=== PATIENT | female | born 1970 | race Caucasian/White ===

== ENCOUNTER → 2022-01-01 08:06 | Outpatient (BNVA) | payer MEDICARE, SELFPAY | PROVIDERS: PCP Family Medicine; Visit Provider Psychiatry & Neurology Neurology | DX: G47.9 Sleep disorder, unspecified (principal); R06.83 Snoring | CPT/HCPCS: 99212 ==

== ENCOUNTER → 2022-02-06 10:10 | Outpatient (BNVA) | payer MEDICARE, SELFPAY | PROVIDERS: PCP Family Medicine; Visit Provider Internal Medicine | DX: G47.9 Sleep disorder, unspecified (principal); G47.34 Idiopathic sleep related nonobstructive alveolar hypoventilation; E66.01 Morbid (severe) obesity due to excess calories; R06.83 Snoring; Z68.41 Body mass index [BMI] 40.0-44.9, adult | CPT/HCPCS: 99202 ==

== ENCOUNTER 2022-02-20 08:57 | Outpatient (REF) | payer MEDICARE, OTHER, SELFPAY ==
[2022-02-20 10:51] LABS: Estimated Average Glucose 120 mg/dL; Hemoglobin A1c % 5.8 %
[2022-02-20 10:56] LABS: Alanine Aminotransferase 12 U/L (0-31); Aspartate Amino Transferase 12 U/L (5-31); Cholesterol 217 mg/dL; HDL Cholesterol 48 mg/dL; LDL Cholesterol Calculated 149 mg/dl; Triglycerides 101 mg/dL
== END 2022-02-20 08:58 | disposition home or self-care (01) ==
LOC: HO.LAB 08:57
PROVIDERS: PCP Family Medicine; Visit Provider Family Medicine
DX: E78.00 Pure hypercholesterolemia, unspecified (principal); E11.9 Type 2 diabetes mellitus without complications
CPT/HCPCS: 36415; 80061; 83036; 84450; 84460

== ENCOUNTER 2022-02-27 07:55 | Outpatient (REF) | payer MEDICARE, OTHER, SELFPAY ==
--- NOTE | 2022-02-27 15:21 | PFT_ITS ---
INDICATION: Dyspnea. SPIROMETRY: FEV1 to FVC 82% with an FEV1 of 2.7 L, which is 92% predicted and an FVC of 3.28 L, which is 88% predicted. No significant response to bronchodilators noted. Maximum voluntary ventilation 93% predicted. LUNG VOLUMES: Total lung capacity 78% predicted with expiratory reserve volume of 23% predicted. DIFFUSION CAPACITY: DLCO 62% predicted. COMPARISONS: None. INTERPRETATION: No obstructive ventilatory defect. No significant response to bronchodilators noted. Normal maximum voluntary ventilation. The patient does have a mild restrictive ventilatory defect consistent with mild restrictive lung disease. Partly due to her body habitus with a decrease in the expiratory reserve volume to 22% predicted. However, underlying interstitial lung conditions and/or neuromuscular conditions need to be considered. The patient does have a mild diffusion impairment that does not correct to normal when correcting for the alveolar volume. Need to consider interstitial lung conditions and/or pulmonary vascular conditions. Should also correct for hemoglobin. Clinical correlation warranted. MD ADRIANA Lind/MODL / [id number]
== END 2022-02-27 07:56 | disposition home or self-care (01) ==
LOC: HO.RESP 07:55
PROVIDERS: PCP Family Medicine; Visit Provider Internal Medicine
DX: E66.01 Morbid (severe) obesity due to excess calories (principal); G47.34 Idiopathic sleep related nonobstructive alveolar hypoventilation; R06.83 Snoring
CPT/HCPCS: 94060; 94727; 94729

== ENCOUNTER → 2022-03-05 07:56 | Outpatient (BNVA) | payer MEDICARE, OTHER, SELFPAY | PROVIDERS: PCP Family Medicine; Visit Provider Psychiatry & Neurology Neurology | DX: G47.9 Sleep disorder, unspecified (principal); R06.83 Snoring | CPT/HCPCS: 99212 ==

== ENCOUNTER → 2022-03-20 09:11 | Outpatient (BNVA) | payer MEDICARE, OTHER, SELFPAY | PROVIDERS: PCP Family Medicine; Visit Provider Internal Medicine | DX: G47.34 Idiopathic sleep related nonobstructive alveolar hypoventilation (principal); J84.9 Interstitial pulmonary disease, unspecified; E66.01 Morbid (severe) obesity due to excess calories; Z68.41 Body mass index [BMI] 40.0-44.9, adult | CPT/HCPCS: 99212 ==

== ENCOUNTER 2022-05-17 13:56 | Outpatient (REF) | payer MEDICARE, SELFPAY ==
[2022-05-17 14:42] LABS: Alanine Aminotransferase 12 U/L (0-31); Aspartate Amino Transferase 17 U/L (5-31); Cholesterol 224 mg/dL; HDL Cholesterol 35 mg/dL; LDL Cholesterol Calculated 131 mg/dl; Triglycerides 293 mg/dL
== END 2022-05-17 13:57 | disposition home or self-care (01) ==
LOC: HO.LAB 13:56
PROVIDERS: Visit Provider Family Medicine
DX: E78.00 Pure hypercholesterolemia, unspecified (principal)
CPT/HCPCS: 36415; 80061; 84450; 84460

== ENCOUNTER → 2022-10-08 09:01 | Outpatient (BNVA) | payer MEDICARE, OTHER, SELFPAY | PROVIDERS: PCP Family Medicine; Visit Provider Internal Medicine | DX: G47.34 Idiopathic sleep related nonobstructive alveolar hypoventilation (principal); J98.4 Other disorders of lung; E66.01 Morbid (severe) obesity due to excess calories; Z68.39 Body mass index [BMI] 39.0-39.9, adult | CPT/HCPCS: 99212 ==

== ENCOUNTER 2023-07-15 09:17 | Outpatient (AMB) | payer MEDICARE, SELFPAY ==
[2023-07-15 09:19] VITALS: BP 124/76; PULSE 86; O2SAT 94; BMI 36.6
--- NOTE | 2023-07-15 09:19 | A.OFFVIS_ITS ---
Intake Vital Signs 07/15/23 09:19 Height 5 ft 6 in Weight 227 lb 1.218 oz BMI 36.6 BP 124/76 Blood Pressure Location Lt brachial Position Sitting Pulse 86 Pulse Source Pulse Oximeter Pulse Oximetry (%) 94 Oxygen Delivery Method Room Air Intake Visit Reasons: cony Intake Note: Pt reports her oxygen levels dropping at night so she sleeps with her oxygen at 2L. Allergies No Known Allergies Allergy (Verified 07/15/23 09:49) Medication List - Last Reconciled 07/15/23 by Naz Torres MD acetaminophen (Tylenol) 325 mg PO QID PRN albuterol sulfate 90 mcg/actuation 2 puffs inhalation Q6H PRN clonazepam 0.25 mg PO BID clonidine HCl 0.1 mg PO TID furosemide (Lasix) 20 mg PO DAILY gabapentin 1,200 mg PO BEDTIME gabapentin 600 mg PO BID hydroxyzine HCl 50 mg PO TID lamotrigine (Lamictal) 200 mg PO BID meloxicam 15 mg PO DAILY PRN promethazine 25 mg PO Q6H PRN quetiapine (Seroquel) 400 mg PO BEDTIME sumatriptan succinate (Imitrex) take 1 tab at onset of headache; if no relief, may repeat 1 tab after at least 2 hrs; max = 2 tabs/24 hrs PO topiramate (Topamax) 100 mg PO BEDTIME venlafaxine ER (Effexor XR) 300 mg PO DAILY Do you need a note to return to daycare/school/sports/work: No HPI cony HPI Details This 53 years old female comes after more than 6 months for follow-up. She is a case of morbid obesity, Sleep disorder ,Nocturnal hypoxemia , restrictive lung disease secondary to obesity. She continues to lose weight, and is happy about that. Recent oximetry recording at night showed that her O2 sat was below 88% for more than 1 hour, so she still needs O2 supplementation at night. With gradual weight loss her shortness of breath on exertion is much less than before. She denies any wheezing or cough. [facility] Medical History (Updated 07/15/23 @ 09:55 by Naz Torres MD) Migraine Morbid obesity Nocturnal hypoxemia Obesity (BMI 30.0-34.9) Psychogenic nonepileptic seizure Restrictive lung disease Surgical History No pertinent past surgical history Family History Father Cancer Paternal Aunt Cancer Social History Alcohol intake: never Patient Tobacco Use Status: Never used Tobacco Review of Systems Const All systems reviewed & are unremarkable except as noted in HPI and below Eyes Reports no additional complaints ENT Reports no additional complaints Card Denies chest pain, Denies irregular heart rhythm, Denies leg edema and Denies dyspnea on exertion Resp Denies cough, Denies excessive phlegm production, Denies dyspnea on exertion and Denies wheezing GI Reports no additional complaints Reports no additional complaints Musc Reports no additional complaints Skin/Breast Reports system reviewed and no additional complaints, except as documented Neuro Reports seizure-like activity and Reports other (MIGRAINE HEADACHES) Endo Reports no additional complaints Aller/Immun Denies wheezing Physical Exam Vital Signs: Last Vital Signs Pulse 86 07/15/23 09:19 BP 124/76 07/15/23 09:19 Pulse Ox 94 07/15/23 09:19 Oxygen Delivery Method Room Air 07/15/23 09:19 BMI result Body Mass Index 36.6 Const General: comfortable, no acute distress, alert and awake Orientation/consciousness: patient oriented x3 HEENT Head: Yes normal to inspection General nose exam: No nasal polyps present and No nasal discharge present Face and sinus: Yes sinuses nontender Mouth: oropharynx abnormals (Oropharynx is crowded, Mallampati class 3) Teeth and gingiva: other (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 No wheezes rhonchi or crepitations are heard. Cardio Palpation: normal PMI Rate: regular rate Rhythm: regular rhythm Heart sounds: no gallops and no murmurs Peripheral pulses: Peripheral pulses 2+ throughout GI Palpation (GI): Soft to palpation, Tenderness to palpation present (GI), No hepatosplenomegaly present, Palpable mass present and Other GI palpation findings present (Abdomen is moderately obese and protuberant) Auscultation: normal bowel sounds Back/Spine/Pelvis Thoracic/Lumbar Spine: thoracic and lumbar spine normal to inspection Skin General skin exam: no rashes or lesions noted Neuro General: patient oriented x3 and no focal motor deficits Cranial nerves: Yes CN's II-XII intact bilaterally Extrem General: Yes normal to inspection, Yes no clubbing, cyanosis or edema and Yes no calf tenderness Psych Appearance: grossly normal and well kempt Speech and movement: Normal speech and movement present Assessment & Plan Assessment & Plan (1) Obesity (BMI 30.0-34.9): Comment: She has lost significant weight, current BMI 36.7 Talked about weight reduction and she is encouraged to continue losing weight slowly. Code(s): E66.9 - Obesity, unspecified (2) Restrictive lung disease: Comment: Mild to moderate degree of restrictive lung disorder, is related to her Obesity ,especially the abdominal obesity. Explained to her in detail. Needs to lose weight. Do deep breathing exercises 2 to 3 times a day. Use albuterol 2 puffs Q 6 hours only p.r.n. if she has any persistent cough. Code(s): J98.4 - Other disorders of lung (3) Nocturnal hypoxemia: Comment: Nocturnal hypoxemia was confirmed by Overnight oximetry recording .confirms presence of nocturnal hypoxemia and (O2 sat below 88% for more than 1 minute. Most likely cause is sleep-related hypoventilation. TX : Has been started on O2 2 per minute via nasal cannula , at night. She is encouraged to keep on using O2 every night. Code(s): G47.34 - Idiopathic sleep related nonobstructive alveolar hypoventilation (4) Snoring: Comment: She has history of snoring , secondary to being overweight. As she is losing weight gradually her amount of snoring is less. Code(s): R06.83 - Snoring Coding Level of Care Code Est Pt Level 4 (55076) Diagnoses Obesity (BMI 30.0-34.9) E66.9 Restrictive lung disease J98.4 Nocturnal hypoxemia G47.34 Snoring R06.83
== END 2023-07-15 09:48 | disposition home or self-care (01) ==
PROVIDERS: PCP Family Medicine; Visit Provider Internal Medicine
DX: E66.9 Obesity, unspecified (principal); J98.4 Other disorders of lung; G47.34 Idiopathic sleep related nonobstructive alveolar hypoventilation; R06.83 Snoring
CPT/HCPCS: 99214

== ENCOUNTER → 2023-07-15 09:17 | Outpatient (BNVA) | payer MEDICARE, MEDICAID, SELFPAY | PROVIDERS: PCP Family Medicine; Visit Provider Internal Medicine | DX: G47.33 Obstructive sleep apnea (adult) (pediatric) (principal); G47.34 Idiopathic sleep related nonobstructive alveolar hypoventilation; R06.83 Snoring; J98.4 Other disorders of lung; E66.01 Morbid (severe) obesity due to excess calories; Z68.36 Body mass index [BMI] 36.0-36.9, adult; Z99.81 Dependence on supplemental oxygen | CPT/HCPCS: 99212 ==

== ENCOUNTER 2024-01-22 10:07 | Outpatient (AMB) | payer MEDICARE, SELFPAY ==
--- NOTE | 2024-01-22 10:10 | A.OFFVIS_ITS ---
Intake Vital Signs 01/22/24 10:21 Height 5 ft 6 in Weight 239 lb 2 oz BMI 38.6 BP 108/60 Blood Pressure Location Rt brachial Position Sitting Respiration 16 Pulse 108 H Pulse Source Pulse Oximeter Pulse Oximetry (%) 96 Oxygen Delivery Method Room Air Intake Visit Reasons: LOW BACK PAIN/ confirm Intake Note: Patient comes in for initial visit was referred by Primary Care. Reports pain 8/10. Allergies adhesive tape Allergy (Unknown, Verified 01/22/24 10:24) Unknown HPI HPI Comments History of Present Illness Details Deisy is very pleasant 53 years old female who is in my office with complains on lower back pain. He reports that he fell in local grocery store and hit her coccyx. She developed some mild coccydynia but this is not why she is in my office. She reported that even before the fall she had the pain in her lower back with radiation to the left mostly on the left side. She reports that the fall aggravated her pain. She is under care of primary care physician and she received tramadol for this pain. She reports her pain 10 today. She reports that she can not sleep normally can not do activities of daily living ca n not take care of herself can not function normally she is on permanent disability because of blindness. Movements aggravate her pain. Heat application make her pain better. In terms of tissue damage he reports her pain as throbbing, shooting, stabbing, sharp, pinching, pulling, ranging, tingling, aching, heavy, exhausting, killing, tight, squeezing. She received multiple sessions of physical therapy for this pain she received massage therapy for this pain without any success. She tried NSAIDs in the past with no help. She continues to do home exercise program currently but this does not improve her pain. She had multiple imaging in the past to help her pain. She had [facility] injected what it sounds like medial branch blocks of the lumbar spine without success. Her past medical history is significant for hypertension headaches fatigue dizziness mental illness shortness of breath diabetes gallstones and arthritis. She denies surgical history. She denies smoking cigarettes she denies drinking alcohol she denies recreational drugs. [facility] Medical History (Updated 01/22/24 @ 10:40 by Kartik Hanks MD) Obesity (BMI 30.0-34.9) Restrictive lung disease Nocturnal hypoxemia Morbid obesity Migraine Psychogenic nonepileptic seizure Surgical History No pertinent past surgical history Family History Father Cancer Paternal Aunt Cancer Social History Alcohol intake: never Patient Tobacco Use Status: Never used Tobacco Review of Systems Const All systems reviewed & are unremarkable except as noted in HPI and below Eyes Reports blurry vision and Reports photophobia ENT Reports no additional complaints and Reports Normal hearing present Card Denies chest pain, Denies irregular heart rhythm, Denies leg edema and Denies dyspnea on exertion Resp Denies cough, Denies excessive phlegm production, Denies dyspnea on exertion and Denies wheezing GI Reports no additional complaints Reports no additional complaints Musc Reports no additional complaints Skin/Breast Reports system reviewed and no additional complaints, except as documented Neuro Reports Normal hearing present, Denies Abnormal speech present, Denies confusion and Denies Sensory deficit (Neuro) Psych Denies confusion Endo Reports no additional complaints Aller/Immun Denies wheezing Physical Exam Vital Signs: Last Vital Signs Pulse 108 H 01/22/24 10:21 Resp 16 01/22/24 10:21 BP 108/60 01/22/24 10:21 Pulse Ox 96 01/22/24 10:21 Oxygen Delivery Method Room Air 01/22/24 10:21 BMI result Body Mass Index 38.6 Const General: no acute distress; No confusion Nutritional Appearance: obese morbidly obese Orientation/consciousness: patient oriented x3 and No confusion Eyes General: appearance normal, both eyes and all related structures Pupils: Equal, round and reactive pupils present EOM: EOMs intact bilaterally Direct Ophthalmoscopy: photophobia Neck Neck: Yes full ROM Chest Chest palpation & inspection: normal inspection of the chest Resp Effort & Inspection: normal respiratory effort, able to speak in complete sentences, normal respiratory pattern, no audible wheezes and no cough Cardio Jugular venous distension: no JVD GI Inspection: Yes normal to inspection Back/Spine/Pelvis Other: Denies numbness in bilateral lower extremities but admits bilateral weakness. However she is able to attempt to stand on bilateral tiptoes in bilateral heels. Probably can not stand on bilateral tiptoes because of significant weight. Unable to flex forward and flexing backwards reports severe pain. Charlie test positive on the left, Charlie test on the right causes severe pain on the left as well. Gaenslen test is positive on the left. Fourteen finger test is positive on the left. Stinchfield test is positive on the left. Neuro General: patient oriented x3, gait normal and No confusion Cranial nerves: Yes CN's II-XII intact bilaterally, Yes Equal, round and reactive pupils present, Yes Normal hearing present and Yes Ability to bilaterally elevate shoulders present Speech: No Abnormal speech present Gait exam (Neuro): Normal gait present Motor exam (neuro): 5/5 motor strength present throughout Sensory Exam: No Sensory deficit (Neuro) Extrem General: No pedal edema Psych Speech and movement: Normal speech and movement present Affect: normal affect Attitude: cooperative Thought process: Normal thought process present Thought content: Normal thought content present Insight: Good insight present (Psych) Judgement: Good judgement present (Psych) Assessment & Plan Assessment & Plan (1) Obesity (BMI 30.0-34.9): Comment: She has lost significant weight, current BMI 36.7 Talked about weight reduction and she is encouraged to continue losing weight slowly. Code(s): E66.9 - Obesity, unspecified (2) Low back pain: Code(s): M54.50 - Low back pain, unspecified (3) Sacroiliitis: Code(s): M46.1 - Sacroiliitis, not elsewhere classified (4) Sacroiliac joint dysfunction of left side: Code(s): M53.3 - Sacrococcygeal disorders, not elsewhere classified Plan I will schedule this patient for diagnostic left sacroiliac joint injection. If this procedure will help the patient I will consider peripheral nerve stimulation of sacroiliac joint innervation versus sacroiliac joint steroid injections. Considering her body weight I do not think sacroiliac joint stabilization with fusion is a good option for this patient. I will see this patient after diagnostic left sacroiliac joint injection. Coding Level of Care Code New Pt Level 3 (87507) Diagnoses Obesity (BMI 30.0-34.9) E66.9 Low back pain M54.50 Sacroiliitis M46.1 Sacroiliac joint dysfunction of left side M53.3
[2024-01-22 10:21] VITALS: BP 108/60; PULSE 108; RESP 16; O2SAT 96; BMI 38.6
== END 2024-01-22 10:35 | disposition home or self-care (01) ==
PROVIDERS: PCP Family Medicine; Referring Provider Family Medicine; Visit Provider Anesthesiology
DX: E66.9 Obesity, unspecified (principal); M54.50 Low back pain, unspecified; M46.1 Sacroiliitis, not elsewhere classified; M53.3 Sacrococcygeal disorders, not elsewhere classified
CPT/HCPCS: 99203

== ENCOUNTER → 2024-01-22 10:07 | Outpatient (BNVA) | payer MEDICARE, SELFPAY | PROVIDERS: PCP Family Medicine; Referring Provider Family Medicine; Visit Provider Anesthesiology | DX: M53.3 Sacrococcygeal disorders, not elsewhere classified (principal); M54.50 Low back pain, unspecified; M46.1 Sacroiliitis, not elsewhere classified; E66.9 Obesity, unspecified; Z68.38 Body mass index [BMI] 38.0-38.9, adult | CPT/HCPCS: 99202 ==

== ENCOUNTER 2024-01-27 09:58 | Outpatient (AMB) | payer MEDICARE, SELFPAY ==
--- NOTE | 2024-01-27 10:03 | MHC.OFFVIS ---
Intake Vital Signs 01/27/24 10:05 Height 5 ft 6 in Weight 233 lb 2 oz BMI 37.6 BP 110/60 Blood Pressure Location Lt brachial Position Sitting Respiration 18 Pulse 93 Pulse Source Pulse Oximeter Pulse Oximetry (%) 98 Oxygen Delivery Method Room Air Intake Visit Reasons: cony Allergies adhesive tape Allergy (Unknown, Verified 01/27/24 10:04) Unknown Medication List - Last Reconciled 01/27/24 by Naz Torres MD acetaminophen (Tylenol) 325 mg PO QID PRN albuterol sulfate 90 mcg/actuation 2 puffs inhalation Q6H PRN clonazepam 0.25 mg PO BID clonidine HCl 0.1 mg PO TID furosemide (Lasix) 20 mg PO DAILY gabapentin 1,200 mg PO BEDTIME hydroxyzine HCl 50 mg PO TID lamotrigine (Lamictal) 200 mg PO BID meloxicam 15 mg PO DAILY PRN methocarbamol 750 mg PO Q6H PRN promethazine 25 mg PO Q6H PRN quetiapine (Seroquel) 400 mg PO BEDTIME rosuvastatin 5 mg PO DAILY sumatriptan succinate (Imitrex) take 1 tab at onset of headache; if no relief, may repeat 1 tab after at least 2 hrs; max = 2 tabs/24 hrs PO topiramate (Topamax) 100 mg PO BEDTIME venlafaxine ER (Effexor XR) 300 mg PO DAILY Do you need a note to return to daycare/school/sports/work: No HPI cony HPI Details THIS 53 YEARS OLD VERY PLEASANT FEMALE IS HERE FOR 6 MONTHS FOLLOW-UP. SHE IS A CASE OF NOCTURNAL HYPOXEMIA, SECONDARY TO OBESITY RELATED HYPOVENTILATION. DOES USE OXYGEN 2 L/MINUTE AT NIGHTTIME. LATELY HAS NOT BEEN USING IT REGULARLY. SHE DOES NOT NEED TO USE. OXYGEN DURING THE DAYTIME SHE DOES HAVE OCCASIONAL COUGH AND WHEEZING FOR WHICH SHE USES ALBUTEROL. ONLY ONCE IN A WHILE DURING THE WINTER MONTHS SHE HAS BEEN RELATIVELY INACTIVE AND HAS PUT ON SOME WEIGHT. SHE CLAIMS THAT SHE SLEEPS FAIRLY WELL AND DENIES ANY SYMPTOM OF SLEEP APNEA. [facility] Medical History Obesity (BMI 30.0-34.9) Restrictive lung disease Nocturnal hypoxemia Morbid obesity Migraine Psychogenic nonepileptic seizure Surgical History No pertinent past surgical history Family History Father Cancer Paternal Aunt Cancer Social History Alcohol intake: never Patient Tobacco Use Status: Never used Tobacco Review of Systems Const All systems reviewed & are unremarkable except as noted in HPI and below Eyes Reports no additional complaints ENT Reports no additional complaints Card Denies chest pain, Denies irregular heart rhythm, Denies leg edema and Denies dyspnea on exertion Resp Denies cough, Denies excessive phlegm production, Denies dyspnea on exertion and Denies wheezing GI Reports no additional complaints Reports no additional complaints Musc Reports no additional complaints Skin/Breast Reports system reviewed and no additional complaints, except as documented Neuro Reports seizure-like activity and Reports other (MIGRAINE HEADACHES) Endo Reports no additional complaints Aller/Immun Denies wheezing Physical Exam Const General: comfortable, no acute distress, alert and awake Orientation/consciousness: patient oriented x3 HEENT Head: Yes normal to inspection General nose exam: No nasal polyps present and No nasal discharge present Face and sinus: Yes sinuses nontender Mouth: oropharynx abnormals (Oropharynx is crowded, Mallampati class 3) Teeth and gingiva: other (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 No wheezes rhonchi or crepitations are heard. Cardio Palpation: normal PMI Rate: regular rate Rhythm: regular rhythm Heart sounds: no gallops and no murmurs Peripheral pulses: Peripheral pulses 2+ throughout GI Palpation (GI): Soft to palpation, Tenderness to palpation present (GI), No hepatosplenomegaly present, Palpable mass present and Other GI palpation findings present (Abdomen is moderately obese and protuberant) Auscultation: normal bowel sounds Back/Spine/Pelvis Thoracic/Lumbar Spine: thoracic and lumbar spine normal to inspection Skin General skin exam: no rashes or lesions noted Neuro General: patient oriented x3 and no focal motor deficits Cranial nerves: Yes CN's II-XII intact bilaterally Extrem General: Yes normal to inspection, Yes no clubbing, cyanosis or edema and Yes no calf tenderness Psych Appearance: grossly normal and well kempt Speech and movement: Normal speech and movement present Assessment & Plan Assessment & Plan (1) Obesity (BMI 30.0-34.9): Comment: She has gained 12 lbs of weight over the last 6 months , current BMI 37.6 Code(s): E66.9 - Obesity, unspecified Plan: Talked about weight reduction and she is encouraged to start walking daily . Reduce intake of Carbohydrates .Cut down the portions. WORK TOWARDS GOAL OF 200 LBs (2) Restrictive lung disease: Comment: Mild to moderate degree of restrictive lung disorder, is related to her Obesity ,especially the abdominal obesity. Explained to her in detail. Needs to lose weight. Code(s): J98.4 - Other disorders of lung Plan: Do deep breathing exercises 2 to 3 times a day. mAY Use albuterol 2 puffs Q 6 hours only p.r.n. if she has persistent cough. (3) Nocturnal hypoxemia: Comment: Nocturnal hypoxemia was confirmed by Overnight oximetry recording .confirmed presence of nocturnal hypoxemia and (O2 sat below 88% for more than 1 minute. Most likely cause is sleep-related hypoventilation. Code(s): G47.34 - Idiopathic sleep related nonobstructive alveolar hypoventilation Plan: TX : Use O2L/ per minute via nasal cannula , at night. Medications: Refilled albuterol sulfate 90 mcg/actuation 2 puffs inhalation Q6H PRN 8.5 grams 4RF cough/bronchospasm Coding Level of Care Code Est Pt Level 3 (13377) Diagnoses Obesity (BMI 30.0-34.9) E66.9 Restrictive lung disease J98.4 Nocturnal hypoxemia G47.34
[2024-01-27 10:05] VITALS: BP 110/60; PULSE 93; RESP 18; O2SAT 98; BMI 37.6
== END 2024-01-27 10:20 | disposition home or self-care (01) ==
PROVIDERS: PCP Family Medicine; Visit Provider Internal Medicine
DX: E66.9 Obesity, unspecified (principal); J98.4 Other disorders of lung; G47.34 Idiopathic sleep related nonobstructive alveolar hypoventilation
CPT/HCPCS: 99213

== ENCOUNTER → 2024-01-27 09:58 | Outpatient (BNVA) | payer MEDICARE, SELFPAY | PROVIDERS: PCP Family Medicine; Visit Provider Internal Medicine | DX: E66.9 Obesity, unspecified (principal); G47.34 Idiopathic sleep related nonobstructive alveolar hypoventilation; J98.4 Other disorders of lung | CPT/HCPCS: 99212 ==

== ENCOUNTER 2024-01-28 06:10 | Outpatient (REF) | payer MEDICARE, SELFPAY ==
--- NOTE | ~2024-01-28 | FL_ITS ---
EXAMINATION: XR FLUOROSCOPY WITH IMAGES CLINICAL INFORMATION: Left SI joint injection. COMPARISON: None available. TECHNIQUE: Fluoroscopy Supervised By: Dr. Joyce Atkinson. Fluoroscopy Time: 0.4 minutes. Cumulative Dose: 9.91 mGy. DAP: 2.70 Gycm2. Images: 2. FINDINGS: The submitted images show an injection needle and injected contrast in the vicinity of the left sacroiliac joint. FL/FL guidance in treatment room IMPRESSION: Intraoperative fluoroscopic guidance is provided during left sacroiliac joint pain injection. Please see the patient's Operative Report for full procedural details.
== END 2024-01-28 06:11 | disposition home or self-care (01) ==
LOC: CF 06:10
PROVIDERS: Visit Provider Anesthesiology
DX: M53.3 Sacrococcygeal disorders, not elsewhere classified (principal); E66.9 Obesity, unspecified; M54.50 Low back pain, unspecified; M46.1 Sacroiliitis, not elsewhere classified; Z68.37 Body mass index [BMI] 37.0-37.9, adult
CPT/HCPCS: 27096; J2795; Q9967

== ENCOUNTER 2024-01-28 07:55 | Outpatient (AMB) | payer MEDICARE, SELFPAY ==
[2024-01-28 08:08] VITALS: BP 130/68; PULSE 89; RESP 14; O2SAT 96; BMI 37.8
--- NOTE | 2024-01-28 08:08 | MHC.OFFVIS ---
Intake Vital Signs 01/28/24 08:08 01/28/24 08:44 Height 5 ft 6 in 5 ft 6 in Weight 234 lb 234 lb BMI 37.8 37.8 BP 130/68 130/68 Blood Pressure Location Lt brachial Rt brachial Position Sitting Sitting Respiration 14 14 Pulse 89 76 Pulse Source Pulse Oximeter Pulse Oximeter Pulse Oximetry (%) 96 96 Oxygen Delivery Method Room Air Room Air Comment Pre-Op Post-OP Intake Visit Reasons: LEFT DIAGNOSTIC SIJ INJECTION/lvm Preparation Room Manager Required: No Accompanied by: Self / Same As Patient Allergies adhesive tape Allergy (Unknown, Verified 01/28/24 08:11) Unknown [facility] Medical History Obesity (BMI 30.0-34.9) Restrictive lung disease Nocturnal hypoxemia Morbid obesity Migraine Psychogenic nonepileptic seizure Surgical History No pertinent past surgical history Family History Father Cancer Paternal Aunt Cancer Social History Alcohol intake: never Patient Tobacco Use Status: Never used Tobacco Physical Exam Vital Signs: Last Vital Signs Pulse 76 01/28/24 08:44 Resp 14 01/28/24 08:44 BP 130/68 01/28/24 08:44 Pulse Ox 96 01/28/24 08:44 Oxygen Delivery Method Room Air 01/28/24 08:44 BMI result Body Mass Index 37.8 Assessment & Plan Assessment & Plan (1) Obesity (BMI 30.0-34.9): Comment: She has gained 12 lbs of weight over the last 6 months , current BMI 37.6 Code(s): E66.9 - Obesity, unspecified (2) Low back pain: Code(s): M54.50 - Low back pain, unspecified (3) Sacroiliitis: Code(s): M46.1 - Sacroiliitis, not elsewhere classified (4) Sacroiliac joint dysfunction of left side: Code(s): M53.3 - Sacrococcygeal disorders, not elsewhere classified Plan: Left diagnostic sacroiliac joint injection. Informed consent was explained thoroughly to the patient. All questions about benefits and risks for the procedure were answered. Patient came to the operating room and was positioned prone on the operating table with the pillow under the pelvis. Time out was performed delineating name and of the patient, allergies and the nature of the procedure. The lower back and buttocks of the patient were prepped with ChloraPrep prepped and draped with sterile utility towels. C-arm was brought over the operating field and sq picture of patient's pelvis was demonstrated on the screen. For the right joint tilting C-arm contralateral to the site of the joint the most posterior portion of the joints was superimposed with anterior silhouette of the joint. Skin was injected in the projection of the joint slightly medial to the location of the joint with 25 gauge 1/2 inch needle using local lidocaine 2% .After that 22 gauge 3 and 1/2 inch needle was driven to the right joint in tunnel vision fashion. When needle entered the joint capsule injection of the contrast was performed demonstrating intra-articular and minimally periarticular spread of the contrast. After that 5 cc. of ropivacaine 0.5% was injected into the joint. Upon completion of the injections the needle was removed Sterile dressing was applied. Upon completion of the injection patient was taken outside of the operating room to the recovery room where recovered uneventfully. Plan I will schedule this patient for diagnostic left sacroiliac joint injection. If this procedure will help the patient I will consider peripheral nerve stimulation of sacroiliac joint innervation versus sacroiliac joint steroid injections. Considering her body weight I do not think sacroiliac joint stabilization with fusion is a good option for this patient. I will see this patient after diagnostic left sacroiliac joint injection. Orders: Orders FL guidance in treatment room Today M53.3 - Sacrococcygeal disorders, not elsewhere classified Coding Level of Care Code Procedure Only Diagnoses Obesity (BMI 30.0-34.9) E66.9 Low back pain M54.50 Sacroiliitis M46.1 Sacroiliac joint dysfunction of left side M53.3
[2024-01-28 08:44] VITALS: BP 130/68; PULSE 76; RESP 14; O2SAT 96; BMI 37.8
== END 2024-01-28 08:31 | disposition home or self-care (01) ==
LOC: HO.PMCPRC 07:56
PROVIDERS: PCP Family Medicine; Visit Provider Anesthesiology
DX: M46.1 Sacroiliitis, not elsewhere classified (principal); M53.3 Sacrococcygeal disorders, not elsewhere classified
CPT/HCPCS: 27096

== ENCOUNTER 2024-02-10 14:36 | Outpatient (AMB) | payer MEDICARE, SELFPAY ==
--- NOTE | 2024-02-10 14:42 | A.OFFVIS_ITS ---
Intake Vital Signs 02/10/24 14:49 Height 5 ft 6 in Weight 232 lb 4 oz BMI 37.5 BP 136/74 Blood Pressure Location Lt brachial Position Sitting Respiration 14 Pulse 81 Pulse Source Pulse Oximeter Pulse Oximetry (%) 95 Oxygen Delivery Method Room Air Intake Visit Reasons: LEFT DIAGNOSTIC SIJ Intake Note: Patient comes in for post-op appointment. Reports pain 7-8/10. Allergies adhesive tape Allergy (Unknown, Verified 02/10/24 14:50) Unknown HPI HPI Comments History of Present Illness Details Deisy is back in my office after diagnostic left sacroiliac joint injection. She reports pain 8/10 immediately after the injection. After that from 1st hour until yesterday she reported almost no pain in her back grading pain from 1 to 2/10. She reported that she had very good mobility. She reported very good activities of daily living. She wants me to perform therapeutic sacroiliac joint injection on the left. I will schedule her for this injection as soon as possible. She also reports on pain in the left knee. She never had any images of the left knee. I suspect that she has left knee arthritis. I will send her for the x- ray of the left knee. Prior: complains on lower back pain.fell in local grocery store and hit her coccyx. She developed some mild coccydynia but this is not why she is in my office. Even before the fall she had the pain in her lower back with radiation to the left mostly on the left side. the fall aggravated her pain. she received tramadol for this pain. She received multiple sessions of physical therapy for this pain she received massage therapy for this pain without any success. She tried NSAIDs in the past with no help. She continues to do home exercise program currently but this does not improve her pain. She had multiple imaging in the past to help her pain. She had [facility] injected what it sounds like medial branch blocks of the lumbar spine without success. [facility] Medical History Obesity (BMI 30.0-34.9) Restrictive lung disease Nocturnal hypoxemia Morbid obesity Migraine Psychogenic nonepileptic seizure Surgical History No pertinent past surgical history Family History Father Cancer Paternal Aunt Cancer Social History Alcohol intake: never Patient Tobacco Use Status: Never used Tobacco Review of Systems Const All systems reviewed & are unremarkable except as noted in HPI and below Eyes Reports photophobia ENT Reports Normal hearing present Neuro Reports Normal hearing present, Denies Abnormal speech present, Denies confusion and Denies Sensory deficit (Neuro) Psych Denies confusion Physical Exam Vital Signs: Last Vital Signs Pulse 81 02/10/24 14:49 Resp 14 02/10/24 14:49 BP 136/74 02/10/24 14:49 Pulse Ox 95 02/10/24 14:49 Oxygen Delivery Method Room Air 02/10/24 14:49 BMI result Body Mass Index 37.5 Const General: no acute distress; No confusion Nutritional Appearance: obese morbidly obese Orientation/consciousness: patient oriented x3 and No confusion Eyes General: appearance normal, both eyes and all related structures Pupils: Equal, round and reactive pupils present EOM: EOMs intact bilaterally Direct Ophthalmoscopy: photophobia Neck Neck: Yes full ROM Chest Chest palpation & inspection: normal inspection of the chest Resp Effort & Inspection: normal respiratory effort, able to speak in complete sentences, normal respiratory pattern, no audible wheezes and no cough Cardio Jugular venous distension: no JVD GI Inspection: Yes normal to inspection Back/Spine/Pelvis Other: Denies numbness in bilateral lower extremities but admits bilateral weakness. However she is able to attempt to stand on bilateral tiptoes in bilateral heels. Probably can not stand on bilateral tiptoes because of significant weight. Unable to flex forward and flexing backwards reports severe pain. Charlie test positive on the left, Charlie test on the right causes severe pain on the left as well. Gaenslen test is positive on the left. Fourteen finger test is positive on the left. Stinchfield test is positive on the left. Neuro General: patient oriented x3, gait normal and No confusion Cranial nerves: Yes CN's II-XII intact bilaterally, Yes Equal, round and reactive pupils present, Yes Normal hearing present and Yes Ability to bilaterally elevate shoulders present Speech: No Abnormal speech present Gait exam (Neuro): Normal gait present Motor exam (neuro): 5/5 motor strength present throughout Sensory Exam: No Sensory deficit (Neuro) Extrem Other: Left knee is normal to inspection range of motion is limited General: No pedal edema Psych Speech and movement: Normal speech and movement present Affect: normal affect Attitude: cooperative Thought process: Normal thought process present Thought content: Normal thought content present Insight: Good insight present (Psych) Judgement: Good judgement present (Psych) Assessment & Plan Assessment & Plan (1) Obesity (BMI 30.0-34.9): Comment: She has gained 12 lbs of weight over the last 6 months , current BMI 37.6 Code(s): E66.9 - Obesity, unspecified (2) Low back pain: Code(s): M54.50 - Low back pain, unspecified (3) Sacroiliitis: Code(s): M46.1 - Sacroiliitis, not elsewhere classified (4) Sacroiliac joint dysfunction of left side: Code(s): M53.3 - Sacrococcygeal disorders, not elsewhere classified (5) Arthritis of left knee: Code(s): M17.12 - Unilateral primary osteoarthritis, left knee Plan I will schedule this patient for therapeutic left sacroiliac joint injection. I also will consider knee steroid injections to help her pain in the left knee once the results of knee x-ray are back and available for me. In the future this patient can not be offered peripheral nerve stimulation of sacroiliac joint innervation Considering her body weight I do not think sacroiliac joint stabilization with fusion is a good option for this patient. Orders: Orders XR knee LT 3V Today M17.12 - Unilateral primary osteoarthritis, left knee Coding Level of Care Code Est Pt Level 3 (62786) Diagnoses Obesity (BMI 30.0-34.9) E66.9 Low back pain M54.50 Sacroiliitis M46.1 Sacroiliac joint dysfunction of left side M53.3 Arthritis of left knee M17.12
[2024-02-10 14:49] VITALS: BP 136/74; PULSE 81; RESP 14; O2SAT 95; BMI 37.5
== END 2024-02-10 15:08 | disposition home or self-care (01) ==
PROVIDERS: PCP Family Medicine; Visit Provider Anesthesiology
DX: E66.9 Obesity, unspecified (principal); M54.50 Low back pain, unspecified; M46.1 Sacroiliitis, not elsewhere classified; M53.3 Sacrococcygeal disorders, not elsewhere classified; M17.12 Unilateral primary osteoarthritis, left knee
CPT/HCPCS: 99213

== ENCOUNTER → 2024-02-10 14:36 | Outpatient (BNVA) | payer MEDICARE, SELFPAY | PROVIDERS: PCP Family Medicine; Visit Provider Anesthesiology | DX: E66.9 Obesity, unspecified (principal); M54.50 Low back pain, unspecified; M46.1 Sacroiliitis, not elsewhere classified; M53.3 Sacrococcygeal disorders, not elsewhere classified; M17.12 Unilateral primary osteoarthritis, left knee; Z68.37 Body mass index [BMI] 37.0-37.9, adult | CPT/HCPCS: 99212 ==

== ENCOUNTER 2024-02-25 06:56 | Outpatient (REF) | payer MEDICARE, SELFPAY ==
--- NOTE | ~2024-02-25 | FL_ITS ---
EXAMINATION: XR FLUOROSCOPY WITH IMAGES CLINICAL INFORMATION: Sacrococcygeal disorder. COMPARISON: None available. TECHNIQUE: Fluoroscopy Supervised By: Dr. Madden. Fluoroscopy Time: 0.2 minutes. Cumulative Dose: 5.08 mGy. DAP: 0.708 Gycm2. Images: 1. FINDINGS: Please refer to procedural note for full details. FL/FL guidance in treatment room IMPRESSION: Intraoperative fluoroscopy.
== END 2024-02-25 06:57 | disposition home or self-care (01) ==
LOC: CF 06:56
PROVIDERS: Visit Provider Anesthesiology
DX: M53.3 Sacrococcygeal disorders, not elsewhere classified (principal); M46.1 Sacroiliitis, not elsewhere classified; M54.50 Low back pain, unspecified; E66.9 Obesity, unspecified; Z68.37 Body mass index [BMI] 37.0-37.9, adult
CPT/HCPCS: 27096; J2795; J3301; Q9967

== ENCOUNTER 2024-02-25 07:45 | Outpatient (AMB) | payer MEDICARE, SELFPAY ==
[2024-02-25 07:45] VITALS: BP 128/74; PULSE 77; RESP 18; O2SAT 96; BMI 37.4
--- NOTE | 2024-02-25 07:45 | A.OFFVIS_ITS ---
Intake Vital Signs 02/25/24 07:45 02/25/24 08:19 Height 5 ft 6 in Weight 232 lb BMI 37.4 BP 128/74 132/88 Blood Pressure Location Lt brachial Lt brachial Position Sitting Sitting Respiration 18 18 Pulse 77 78 Pulse Source Pulse Oximeter Pulse Oximeter Pulse Oximetry (%) 96 97 Oxygen Delivery Method Room Air Room Air Comment Pre-Op Intake Visit Reasons: LEFT THERAPEUTIC SIJ INJECTION Allergies adhesive tape Allergy (Unknown, Verified 02/10/24 14:50) Unknown [facility] Medical History Obesity (BMI 30.0-34.9) Restrictive lung disease Nocturnal hypoxemia Morbid obesity Migraine Psychogenic nonepileptic seizure Surgical History No pertinent past surgical history Family History Father Cancer Paternal Aunt Cancer Social History Alcohol intake: never Patient Tobacco Use Status: Never used Tobacco Physical Exam Vital Signs: Last Vital Signs Pulse 78 02/25/24 08:19 Resp 18 02/25/24 08:19 BP 132/88 02/25/24 08:19 Pulse Ox 97 02/25/24 08:19 Oxygen Delivery Method Room Air 02/25/24 08:19 BMI result Body Mass Index 37.4 Assessment & Plan Assessment & Plan (1) Obesity (BMI 30.0-34.9): Comment: She has gained 12 lbs of weight over the last 6 months , current BMI 37.6 Code(s): E66.9 - Obesity, unspecified (2) Low back pain: Code(s): M54.50 - Low back pain, unspecified (3) Sacroiliitis: Code(s): M46.1 - Sacroiliitis, not elsewhere classified (4) Sacroiliac joint dysfunction of left side: Code(s): M53.3 - Sacrococcygeal disorders, not elsewhere classified Plan: Left therapeutic sacroiliac joint injection. Informed consent was explained thoroughly to the patient. All questions about benefits and risks for the procedure were answered. Patient came to the operating room and was positioned prone on the operating table with the pillow under the pelvis. Time out was performed delineating name and of the patient, allergies and the nature of the procedure. The lower back and buttocks of the patient were prepped with ChloraPrep prepped and draped with sterile utility towels. C-arm was brought over the operating field and sq picture of patient's pelvis was demonstrated on the screen. For the left joint tilting C-arm contralateral to the site of the joint the most posterior portion of the joints was superimposed with anterior silhouette of the joint. Skin was injected in the projection of the joint slightly medial to the location of the joint with 25 gauge 1/2 inch needle using local lidocaine 2% .After that 22 gauge 3 and 1/2 inch needle was driven to the left joint in tunnel vision fashion. When needle entered the joint capsule injection of the c ontrast was performed demonstrating intra-articular and minimally periarticular spread of the contrast. After that 5 cc. of ropivacaine 0.5% mixed with kenalog 40 mg was injected into the joint. Upon completion of the injections the needle was removed , Sterile dressing was applied. Upon completion of the injection patient was taken outside of the operating room to the recovery room where recovered uneventfully. Plan I will schedule this patient for diagnostic left sacroiliac joint injection. If this procedure will help the patient I will consider peripheral nerve stimulation of sacroiliac joint innervation versus sacroiliac joint steroid injections. Considering her body weight I do not think sacroiliac joint stabilization with fusion is a good option for this patient. I will see this patient after diagnostic left sacroiliac joint injection. Orders: Orders FL guidance in treatment room Today M53.3 - Sacrococcygeal disorders, not elsewhere classified Coding Level of Care Code Procedure Only Diagnoses Obesity (BMI 30.0-34.9) E66.9 Low back pain M54.50 Sacroiliitis M46.1 Sacroiliac joint dysfunction of left side M53.3
[2024-02-25 08:19] VITALS: BP 132/88; PULSE 78; RESP 18; O2SAT 97
== END 2024-02-25 08:20 | disposition home or self-care (01) ==
LOC: HO.PMCPRC 07:45
PROVIDERS: PCP Family Medicine; Visit Provider Anesthesiology
DX: M46.1 Sacroiliitis, not elsewhere classified (principal); M53.3 Sacrococcygeal disorders, not elsewhere classified
CPT/HCPCS: 27096

== ENCOUNTER 2024-03-25 12:02 | Outpatient (AMB) | payer MEDICARE, SELFPAY ==
--- NOTE | 2024-03-25 12:40 | A.OFFVIS_ITS ---
Intake Visit Reasons: LEFT THERAPEUTIC SIJ INJECTION Allergies adhesive tape Allergy (Unknown, Verified 03/25/24 12:40) Unknown HPI Comments Details: Deisy is on the telephone to discuss the results of therapeutic left sacroiliac joint injection. The patient unfortunately insisted on scheduling this procedure on the telephone. She stated that she can not attend the follow- up procedure because of her pain. She reports excellent results of left sacroil iac joint injection however now she says that her pain is much lower than previous pain in the projection of the sacroiliac joint and it is below the level of her lower back and rather on the thigh. Unfortunately I can not make physical exam of the telephone therefore I and invited this patient to come next week to see me and have her pain evaluated and examined. The patient agreed with the plan. Prior : Results of diagnostic left sacroiliac joint injection. She reports pain 8/10 immediately after the injection. After that from 1st hour until yesterday she reported almost no pain in her back grading pain from 1 to 2/10. She reported that she had very good mobility. She reported very good activities of daily living. She wants me to perform therapeutic sacroiliac joint injection on the left. I will schedule her for this injection as soon as possible. She also reports on pain in the left knee. She never had any images of the left knee. I suspect that she has left knee arthritis. I will send her for the x- ray of the left knee. Prior: complains on lower back pain.fell in local grocery store and hit her coccyx. She developed some mild coccydynia but this is not why she is in my office. Even before the fall she had the pain in her lower back with radiation to the left mostly on the left side. the fall aggravated her pain. she received tramadol for this pain. She received multiple sessions of physical therapy for this pain she received massage therapy for this pain without any success. She tried NSAIDs in the past with no help. She continues to do home exercise program currently but this does not improve her pain. She had multiple imaging in the past to help her pain. She had [facility] injected what it sounds like medial branch blocks of the lumbar spine without success. [facility] Medical History Obesity (BMI 30.0-34.9) Restrictive lung disease Nocturnal hypoxemia Morbid obesity Migraine Psychogenic nonepileptic seizure Surgical History No pertinent past surgical history Family History Father Cancer Paternal Aunt Cancer Social History Alcohol intake: never Patient Tobacco Use Status: Never used Tobacco Review of Systems Const All systems reviewed & are unremarkable except as noted in HPI and below Telehealth Telehealth Telehealth Platform: Telephone Location of provider rendering services: practice address Location of patient: address on file Patient Identification confirmed using: Name, : Yes Telehealth method: voice only Patient verbally consented to treatment: Yes Patient verbally consented to billing insurance company: Yes Patient informed of any privacy concerns related to visit: Yes Assessment & Plan Assessment & Plan (1) Obesity (BMI 30.0-34.9): Comment: She has gained 12 lbs of weight over the last 6 months , current BMI 37.6 Code(s): E66.9 - Obesity, unspecified Category: Medical (2) Low back pain: Code(s): M54.50 - Low back pain, unspecified Category: Medical (3) Sacroiliitis: Code(s): M46.1 - Sacroiliitis, not elsewhere classified Category: Medical (4) Sacroiliac joint dysfunction of left side: Code(s): M53.3 - Sacrococcygeal disorders, not elsewhere classified Category: Medical (5) Arthritis of left knee: Code(s): M17.12 - Unilateral primary osteoarthritis, left knee Category: Medical Plan The patient will be scheduled to see me again next week. She reports good results of left therapeutic sacroiliac joint injections however she reports new pain below the level of the previous pain in the projection of the left buttock. I am unable to discuss her over the telephone and I will schedule her for the examination next week in the office. Patient Instructions: I here by testify that I spent 15 minutes in conversation with this patient. Coding Level of Care Code Tele Est Pt Level 3 (99502) Diagnoses Obesity (BMI 30.0-34.9) E66.9 Low back pain M54.50 Sacroiliitis M46.1 Sacroiliac joint dysfunction of left side M53.3 Arthritis of left knee M17.12
== END 2024-03-25 12:41 | disposition home or self-care (01) ==
LOC: HO.PMC 12:02
PROVIDERS: PCP Family Medicine; Visit Provider Anesthesiology
DX: E66.9 Obesity, unspecified (principal); M54.50 Low back pain, unspecified; M46.1 Sacroiliitis, not elsewhere classified; M53.3 Sacrococcygeal disorders, not elsewhere classified; M17.12 Unilateral primary osteoarthritis, left knee
CPT/HCPCS: 99442

== ENCOUNTER → 2024-03-25 12:02 | Outpatient (BNVA) | payer MEDICARE, SELFPAY | PROVIDERS: PCP Family Medicine; Visit Provider Anesthesiology ==

== ENCOUNTER 2024-04-08 08:37 | Outpatient (AMB) | payer MEDICARE, SELFPAY ==
--- NOTE | 2024-04-08 08:39 | MHC.OFFVIS ---
Vital Signs 04/08/24 08:46 Height 5 ft 6 in Weight 233 lb BMI 37.6 BP 120/66 Blood Pressure Location Lt brachial Position Sitting Respiration 16 Pulse 104 H Pulse Source Pulse Oximeter Pulse Oximetry (%) 93 Oxygen Delivery Method Room Air Intake Visit Reasons: buttock pain Intake Note: Patient comes in for buttocks pain. Reports pain 7-8/10. Allergies adhesive tape Allergy (Unknown, Verified 04/08/24 08:45) Unknown HPI Comments Details: Deisy is in my office today complaining on pain in the left lower buttock which radiates down to her left lower extremity all the way down to her ankles medial rotation does not aggravate her pain however lateral rotation makes her pain worse. On physical exam the wrist tenderness on palpation in the projection of the sciatic nerve exiting from the pelvis on the surface of the muscles. Therefore diagnosis of piriformis syndrome is made. I will schedule this patient for therapeutic piriformis muscle injection. To help her pain I will send prescription of methocarbamol muscle relaxants for her. She had the sacroiliac joint injection more than 1 month ago. The patient agreed with the plan. Prior : Results of diagnostic left sacroiliac joint injection. She reports pain 8/10 immediately after the injection. After that from 1st hour until yesterday she reported almost no pain in her back grading pain from 1 to 2/10. She reported that she had very good mobility. She reported very good activities of daily living. She wants me to perform therapeutic sacroiliac joint injection on the left. I will schedule her for this injection as soon as possible. She also reports on pain in the left knee. She never had any images of the left knee. I suspect that she has left knee arthritis. I will send her for the x-ray of the left knee. Prior: complains on lower back pain.fell in local grocery store and hit her coccyx. She developed some mild coccydynia but this is not why she is in my office. Even before the fall she had the pain in her lower back with radiation to the left mostly on the left side. the fall aggravated her pain. she received tramadol for this pain. She received multiple sessions of physical therapy for this pain she received massage therapy for this pain without any success. She tried NSAIDs in the past with no help. She continues to do home exercise program currently but this does not improve her pain. She had multiple imaging in the past to help her pain. She had [facility] injected what it sounds like medial branch blocks of the lumbar spine without success. [facility] Medical History Obesity (BMI 30.0-34.9) Restrictive lung disease Nocturnal hypoxemia Morbid obesity Migraine Psychogenic nonepileptic seizure Surgical History No pertinent past surgical history Family History Father Cancer Paternal Aunt Cancer Social History Alcohol intake: never Patient Tobacco Use Status: Never used Tobacco Review of Systems Const All systems reviewed & are unremarkable except as noted in HPI and below Eyes Reports photophobia ENT Reports Normal hearing present Neuro Reports Normal hearing present, Denies Abnormal speech present, Denies confusion and Denies Sensory deficit (Neuro) Psych Denies confusion Physical Exam Const General: no acute distress; No confusion Nutritional Appearance: obese morbidly obese Orientation/consciousness: patient oriented x3 and No confusion Eyes General: appearance normal, both eyes and all related structures Pupils: Equal, round and reactive pupils present EOM: EOMs intact bilaterally Direct Ophthalmoscopy: photophobia Neck Neck: Yes full ROM Chest Chest palpation & inspection: normal inspection of the chest Resp Effort & Inspection: normal respiratory effort, able to speak in complete sentences, normal respiratory pattern, no audible wheezes and no cough Cardio Jugular venous distension: no JVD GI Inspection: Yes normal to inspection Back/Spine/Pelvis Other: Denies numbness in bilateral lower extremities but admits bilateral weakness. However she is able to attempt to stand on bilateral tiptoes in bilateral heels. Probably can not stand on bilateral tiptoes because of significant weight. Unable to flex forward and flexing backwards reports severe pain. Charlie test positive on the left, Charlie test on the right causes severe pain on the left as well. Gaenslen test is positive on the left. Fourteen finger test is positive on the left. Stinchfield test is positive on the left. SLR is positive on the left as well as medial rotation of the foot causes extreme exacerbation of the pain. Neuro General: patient oriented x3, gait normal and No confusion Cranial nerves: Yes CN's II-XII intact bilaterally, Yes Equal, round and reactive pupils present, Yes Normal hearing present and Yes Ability to bilaterally elevate shoulders present Speech: No Abnormal speech present Gait exam (Neuro): Normal gait present Motor exam (neuro): 5/5 motor strength present throughout Sensory Exam: No Sensory deficit (Neuro) Extrem Other: Left knee is normal to inspection range of motion is limited General: No pedal edema Psych Speech and movement: Normal speech and movement present Affect: normal affect Attitude: cooperative Thought process: Normal thought process present Thought content: Normal thought content present Insight: Good insight present (Psych) Judgement: Good judgement present (Psych) Assessment & Plan Assessment & Plan (1) Obesity (BMI 30.0-34.9): Comment: She has gained 12 lbs of weight over the last 6 months , current BMI 37.6 Code(s): E66.9 - Obesity, unspecified Category: Medical (2) Low back pain: Code(s): M54.50 - Low back pain, unspecified Category: Medical (3) Sacroiliitis: Code(s): M46.1 - Sacroiliitis, not elsewhere classified Category: Medical (4) Sacroiliac joint dysfunction of left side: Code(s): M53.3 - Sacrococcygeal disorders, not elsewhere classified Category: Medical (5) Arthritis of left knee: Code(s): M17.12 - Unilateral primary osteoarthritis, left knee Category: Medical (6) Piriformis syndrome of left side: Code(s): G57.02 - Lesion of sciatic nerve, left lower limb Category: Medical Plan On physical exam this patient seem to be suffering from piriformis syndrome. The left sciatic nerve seem to be affected. I will schedule her for left ultrasound-guided piriformis injection. She had sacroiliac joint injection about 16 weeks ago therefore 2nd location can not be injected for the patient. I will see this patient after the procedure. To temporize her pain I also will start her on cyclobenzaprine 10 mg b.i.d. Medications: New cyclobenzaprine 10 mg PO BID 30 days PRN 60 tabs 6RF muscle spasm Patient Instructions: I here by testify that I spent 30 minutes in conversation with this patient as well as planning her care and organizing this note. Coding Level of Care Code Est Pt Level 4 (60972) Diagnoses Obesity (BMI 30.0-34.9) E66.9 Low back pain M54.50 Sacroiliitis M46.1 Sacroiliac joint dysfunction of left side M53.3 Arthritis of left knee M17.12 Piriformis syndrome of left side G57.02
[2024-04-08 08:46] VITALS: BP 120/66; PULSE 104; RESP 16; O2SAT 93; BMI 37.6
== END 2024-04-08 08:51 | disposition home or self-care (01) ==
PROVIDERS: PCP Family Medicine; Visit Provider Anesthesiology
DX: E66.9 Obesity, unspecified (principal); M54.50 Low back pain, unspecified; M46.1 Sacroiliitis, not elsewhere classified; M53.3 Sacrococcygeal disorders, not elsewhere classified; M17.12 Unilateral primary osteoarthritis, left knee; G57.02 Lesion of sciatic nerve, left lower limb
CPT/HCPCS: 99214

== ENCOUNTER → 2024-04-08 08:37 | Outpatient (BNVA) | payer MEDICARE, SELFPAY | PROVIDERS: PCP Family Medicine; Visit Provider Anesthesiology | DX: M54.50 Low back pain, unspecified (principal); M46.1 Sacroiliitis, not elsewhere classified; M53.3 Sacrococcygeal disorders, not elsewhere classified; M17.12 Unilateral primary osteoarthritis, left knee; G57.02 Lesion of sciatic nerve, left lower limb; E66.9 Obesity, unspecified; Z68.37 Body mass index [BMI] 37.0-37.9, adult | CPT/HCPCS: 99212 ==

== ENCOUNTER 2024-06-30 06:18 | Outpatient (REF) | payer MEDICARE, SELFPAY | END 2024-06-30 06:19 | disposition home or self-care (01) | LOC: CF 06:18 | PROVIDERS: Visit Provider Anesthesiology | DX: G57.02 Lesion of sciatic nerve, left lower limb (principal) | CPT/HCPCS: 20552; J2795; J3301 ==

== ENCOUNTER 2024-06-30 08:10 | Outpatient (AMB) | payer MEDICARE, SELFPAY ==
--- NOTE | 2024-06-30 08:11 | MHC.OFFVIS ---
Vital Signs 06/30/24 08:19 06/30/24 09:46 Height 5 ft 6 in Weight 230 lb BMI 37.1 BP 112/60 127/87 Blood Pressure Location Lt brachial Lt brachial Position Sitting Sitting Respiration 14 14 Pulse 76 79 Pulse Source Pulse Oximeter Pulse Oximeter Pulse Oximetry (%) 98 98 Oxygen Delivery Method Room Air Room Air Comment Pre-op Post-Op Intake Visit Reasons: LEFT ULTRASOUND GUIDED PIRIFORMIS INJECTION Allergies adhesive tape Allergy (Unknown, Verified 06/30/24 08:20) Unknown [facility] Medical History Obesity (BMI 30.0-34.9) Restrictive lung disease Nocturnal hypoxemia Morbid obesity Migraine Psychogenic nonepileptic seizure Surgical History No pertinent past surgical history Family History Father Cancer Paternal Aunt Cancer Social History Alcohol intake: never Patient Tobacco Use Status: Never used Tobacco Physical Exam Vital Signs: Last Vital Signs Pulse 76 06/30/24 08:19 Resp 14 06/30/24 08:19 BP 112/60 06/30/24 08:19 Pulse Ox 98 06/30/24 08:19 Oxygen Delivery Method Room Air 06/30/24 08:19 BMI result Body Mass Index 37.1 Assessment & Plan Assessment & Plan (1) Piriformis syndrome of left side: Code(s): G57.02 - Lesion of sciatic nerve, left lower limb Category: Medical Plan Left-sided ultrasound-guided piriformis muscle steroid injection. Informed consent was explained thoroughly to the patient. All questions about benefits and risks for the procedure were answered. Patient came to the examination room and was positioned prone on the stretcher with the pillow under the pelvis. Time out was performed delineating name and of the patient, allergies and the nature of the procedure. The lower back and left buttock of the patient were prepped with ChloraPrep prepped and draped with sterile utility towels. Sterilely draped ultrasound curvilinear probe was brought over the patient's left buttock and ultrasound picture of gluteus milton muscle reduce minimus muscle and underlying piriformis muscle were demonstrated on the screen. The rotation of the left hip lateral and medial verified the position of the piriformis muscle. After that 10 cm/100 mm echo stim needle was inserted extra anatomically in plane fashion next to the ultrasound probe and it was advanced to were the piriformis muscle under direct ultrasound view. When needle entered the piriformis muscle injection of the saline was performed demonstrating good spread of the contrast inside of the muscle and no intravascular needle position. After that injection of the ropivacaine 0.5% mixed with Kenalog 40 mg was performed into piriformis muscle. After that needle was removed sterile Band-Aid was applied. The patient tolerated procedure well. She recovered uneventfully. Coding Level of Care Code Procedure Only Diagnoses Piriformis syndrome of left side G57.02
[2024-06-30 08:19] VITALS: BP 112/60; PULSE 76; RESP 14; O2SAT 98; BMI 37.1
[2024-06-30 09:46] VITALS: BP 127/87; PULSE 79; RESP 14; O2SAT 98
== END 2024-06-30 09:46 | disposition home or self-care (01) ==
LOC: HO.PMCPRC 08:10
PROVIDERS: PCP Family Medicine; Visit Provider Anesthesiology
DX: M79.18 Myalgia, other site (principal); G57.02 Lesion of sciatic nerve, left lower limb
CPT/HCPCS: 20552

== ENCOUNTER 2024-11-05 15:49 | Outpatient (REF) | payer MEDICARE, SELFPAY | END 2024-11-05 15:50 | disposition home or self-care (01) | LOC: HO.XRAY 15:49 | PROVIDERS: PCP Family Medicine; Visit Provider Anesthesiology | DX: M25.561 Pain in right knee (principal) | CPT/HCPCS: 73562 ==

== ENCOUNTER 2025-03-03 15:05 | Outpatient (REF) | payer MEDICARE, SELFPAY ==
--- NOTE | ~2025-03-03 | XR_ITS ---
EXAMINATION: XR LUMBAR SPINE 6 OR MORE VIEWS INCLUDING BENDING HISTORY: M54.50 - Low back pain, unspecified COMPARISON: There are no prior studies for comparison. FINDINGS: AP, and neutral, flexion, and extension lateral views of the lumbar spine are submitted. Osseous mineralization is normal. Five nonrib-bearing lumbar vertebral bodies are identified, maintaining normal height without evidence of fracture or spondylolisthesis. There is mild dextroscoliosis. There is minimal retrolisthesis of L2 on L3 which does not change with flexion or extension. There is severe degenerative disc disease at the L2-3 level with disc space narrowing and osteophyte formation. Milder changes are noted at the remaining levels. There is no spondylolysis. The visualized paraspinal soft tissues are unremarkable. XR/XR lumbar spine 6V w bending IMPRESSION: Mild dextroscoliosis. Degenerative changes as described. Minimal retrolisthesis of L2 on L3 which does not change with flexion or extension. Electronically signed by: Duke Donato MD 03/04/2025 08:56 AM EDT
[2025-03-03 17:44] LABS: Glucose, Whole Blood 104 mg/dL (60-115)
== END 2025-03-03 15:06 | disposition home or self-care (01) ==
LOC: HO.XRAY 15:05
PROVIDERS: PCP Family Medicine; Visit Provider Anesthesiology
DX: Z13.89 Encounter for screening for other disorder (principal)
CPT/HCPCS: 72114; 82947

== ENCOUNTER 2025-03-03 15:05 | Outpatient (AMB) | payer MEDICARE, SELFPAY ==
--- NOTE | 2025-03-03 15:06 | MHC.OFFVIS ---
Vital Signs 03/03/25 15:08 Height 5 ft 6 in Weight 247 lb BMI 39.9 BP 138/78 Blood Pressure Location Lt brachial Position Sitting Respiration 16 Pulse 103 H Pulse Source Pulse Oximeter Pulse Oximetry (%) 94 Oxygen Delivery Method Room Air Intake Visit Reasons: BACK PAIN DUE TO FALL Executive Chairman Required: No Allergies adhesive tape Allergy (Unknown, Verified 03/03/25 16:26) Unknown amoxicillin [From Augmentin] Adverse Reaction (Severe, Verified 03/03/25 15:09) colitis clavulanic acid [From Augmentin] Adverse Reaction (Severe, Verified 03/03/25 15:09) colitis Medication List - Last Reconciled 03/03/25 by Carmencita Vargas LPN acetaminophen (Tylenol) 325 mg PO QID PRN albuterol sulfate 90 mcg/actuation 2 puffs inhalation Q6H PRN clonazepam 0.25 mg PO BID clonidine HCl 0.1 mg PO TID cyclobenzaprine 10 mg PO BID PRN 30 days furosemide (Lasix) 20 mg PO DAILY gabapentin 1,200 mg PO BEDTIME hydroxyzine HCl 50 mg PO TID lamotrigine (Lamictal) 200 mg PO BID lidocaine 5% topical meloxicam 15 mg PO DAILY PRN nystatin topical quetiapine (Seroquel) 400 mg PO BEDTIME rosuvastatin 5 mg PO DAILY sumatriptan succinate (Imitrex) take 1 tab at onset of headache; if no relief, may repeat 1 tab after at least 2 hrs; max = 2 tabs/24 hrs PO topiramate (Topamax) 100 mg PO BEDTIME venlafaxine ER (Effexor XR) 300 mg PO DAILY HPI Comments Details: Deisy is in my office with a new complaint: Apparently 3 weeks ago she fell at home, she went to [facility] Emergency room and after that to an orthopedic surgeon because the most complains of hers were on the knee pain she received steroid injection into her knee, however when her knee got better started to feel more pain in the lower back. Nobody send her for the x-ray of the lower back. She did not go for physical therapy for the lower back. She reports on severe pain and states that she is reluctant to go to physical therapy. To rule out red flags or fractures in her back I we will schedule her for x-ray of the lumbar spine. I was finishing this note next morning after the encounter with the patient when I found out that patient had an episode of seizure, and went to emergency room. She was evaluated there she had CT scan of the head and x-ray of the chest. CT scan of the head is negative chest x-ray is evident of multiple opacities congruent with inflammation and/or infection. In the past patient was complaining on left buttock pain radiating down the leg and piriformis injection was planned however patient did not go for the procedure.. Prior : Results of diagnostic left sacroiliac joint injection. She reports pain 8/10 immediately after the injection. After that from 1st hour until yesterday she reported almost no pain in her back grading pain from 1 to 2/10. She reported that she had very good mobility. She reported very good activities of daily living. She wants me to perform therapeutic sacroiliac joint injection on the left. I will schedule her for this injection as soon as possible. She also reports on pain in the left knee. She never had any images of the left knee. I suspect that she has left knee arthritis. I will send her for the x-ray of the left knee. Prior: complains on lower back pain.fell in local grocery store and hit her coccyx. She developed some mild coccydynia but this is not why she is in my office. Even before the fall she had the pain in her lower back with radiation to the left mostly on the left side. the fall aggravated her pain. she received tramadol for this pain. She received multiple sessions of physical therapy for this pain she received massage therapy for this pain without any success. She tried NSAIDs in the past with no help. She continues to do home exercise program currently but this does not improve her pain. She had multiple imaging in the past to help her pain. She had [facility] injected what it sounds like medial branch blocks of the lumbar spine without success. COUNT INCLUDES THE [facility] Medical History (Updated 03/04/25 @ 05:53 by Hayley Rivera PA-C) Type 2 diabetes mellitus without complications Obesity (BMI 30.0-34.9) Restrictive lung disease Nocturnal hypoxemia Morbid obesity Migraine Psychogenic nonepileptic seizure Surgical History No pertinent past surgical history Family History Father Cancer Paternal Aunt Cancer Social History Alcohol intake: never Patient Tobacco Use Status: Never used Tobacco Advance Directives: No Advance Directives Information Provided: No Nutrition Risks: No Nutritional Risk Review of Systems Const All systems reviewed & are unremarkable except as noted in HPI and below Eyes Reports photophobia ENT Reports Normal hearing present Neuro Reports Normal hearing present, Denies Abnormal speech present, Denies confusion and Denies Sensory deficit (Neuro) Psych Denies confusion Physical Exam Vital Signs: Last Vital Signs Pulse 103 H 03/03/25 15:08 Resp 16 03/03/25 15:08 BP 138/78 03/03/25 15:08 Pulse Ox 94 03/03/25 15:08 Oxygen Delivery Method Room Air 03/03/25 15:08 BMI result Body Mass Index 39.9 Const General: no acute distress; No confusion Nutritional Appearance: obese morbidly obese Orientation/consciousness: patient oriented x3 and No confusion Eyes General: appearance normal, both eyes and all related structures Pupils: Equal, round and reactive pupils present EOM: EOMs intact bilaterally Direct Ophthalmoscopy: photophobia Neck Neck: Yes full ROM Chest Chest palpation & inspection: normal inspection of the chest Resp Effort & Inspection: normal respiratory effort, able to speak in complete sentences, normal respiratory pattern, no audible wheezes and no cough Cardio Jugular venous distension: no JVD GI Inspection: Yes normal to inspection Back/Spine/Pelvis Other: Denies numbness in bilateral lower extremities but admits bilateral weakness. However she is able to attempt to stand on bilateral tiptoes in bilateral heels. Probably can not stand on bilateral tiptoes because of significant weight. Unable to flex forward and flexing backwards reports severe pain. Charlie test positive on the left, Charlie test on the right causes severe pain on the left as well. Gaenslen test is positive on the left. Fourteen finger test is positive on the left. Stinchfield test is positive on the left. SLR is positive on the left as well as medial rotation of the foot causes extreme exacerbation of the pain. Neuro General: patient oriented x3, gait normal and No confusion Cranial nerves: Yes CN's II-XII intact bilaterally, Yes Equal, round and reactive pupils present, Yes Normal hearing present and Yes Ability to bilaterally elevate shoulders present Speech: No Abnormal speech present Gait exam (Neuro): Normal gait present Motor exam (neuro): 5/5 motor strength present throughout Sensory Exam: No Sensory deficit (Neuro) Extrem Other: Left knee is normal to inspection range of motion is limited General: No pedal edema Psych Speech and movement: Normal speech and movement present Affect: normal affect Attitude: cooperative Thought process: Normal thought process present Thought content: Normal thought content present Insight: Good insight present (Psych) Judgement: Good judgement present (Psych) Results Reviewed Results Reviewed: CT scan of the head and x-ray of the chest reports were reviewed, the x-ray of the lumbar spine which was performed on the patient on my order is not read yet. Assessment & Plan Assessment & Plan (1) Obesity (BMI 30.0-34.9): Comment: She has gained 12 lbs of weight over the last 6 months , current BMI 37.6 Code(s): E66.9 - Obesity, unspecified Category: Medical (2) Low back pain: Code(s): M54.50 - Low back pain, unspecified Category: Medical (3) Sacroiliitis: Code(s): M46.1 - Sacroiliitis, not elsewhere classified Category: Medical (4) Sacroiliac joint dysfunction of left side: Code(s): M53.3 - Sacrococcygeal disorders, not elsewhere classified Category: Medical (5) Arthritis of left knee: Code(s): M17.12 - Unilateral primary osteoarthritis, left knee Category: Medical (6) Piriformis syndrome of left side: Code(s): G57.02 - Lesion of sciatic nerve, left lower limb Category: Medical (7) Acute low back pain due to trauma: Code(s): M54.50 - Low back pain, unspecified; G89.11 - Acute pain due to trauma Category: Medical Plan Patient was sent for x-ray of the lumbar spine after acute trauma, she fell at her house 3 weeks ago. She came to me, because of the acute trauma I sent her to physical therapy and x-ray of the lumbar spine. The patient was reluctant go for physical therapy, she was requesting me to prescribe her opioids. I explained to her that this office does not prescribe short course opioids, if she wants to be on chronic long-term opioid therapy she needs to go for psychological evaluation with us, submit urine drug screen and after that admitted to the chronic opioid program. When she came to the x-ray of the lumbar spine she had seizure and was delivered to the emergency room where they had chest x-ray and head CT. I called the emergency room and received the report from the emergency room nurse. According to the report she was admitted to telemetry with diagnosis of seizure disorder. The nature of the lung condition is not explained. I am going to follow-up on this patient further. Orders: Orders XR lumbar spine 6V w bending 03/03/25 G89.11 - Acute pain due to trauma, M54.50 - Low back pain, unspecified Patient Instructions: I here by testify that I spent 45 minutes in conversation with this patient as well as evaluating her studies and organizing this note. Coding Level of Care Code Est Pt Level 5 (31968) Diagnoses Obesity (BMI 30.0-34.9) E66.9 Low back pain M54.50 Sacroiliitis M46.1 Sacroiliac joint dysfunction of left side M53.3 Arthritis of left knee M17.12 Piriformis syndrome of left side G57.02 Acute low back pain due to trauma M54.50; G89.11
[2025-03-03 15:08] VITALS: BP 138/78; PULSE 103; RESP 16; O2SAT 94; BMI 39.9
--- OUTSIDE RECORDS SUMMARY | 2025-03-03 17:12 | XMS_ITS | Encounter Summary ---
Author Organization [facility] Address [address] [place] [address] Care Team Providers Care Plate Setter Name Role Phone Rashmi Alfaro MD Primary Care Provider [phone] Reason for Referral * Imaging (Routine) - Closed Specialty Diagnoses / Procedures Referred By Bren miranda Referred To Contact Radiology Diagnoses Encounter for screening mammogram for malignant neoplasm of breast Procedures [facility] Mammo Digital Screening w Rashmi Lazaro MD Phone: tel: fax: [address] [address] Phone: tel: Referral ID Status Reason Start Date Expiration Date Visits Re quested Visits Authorized [id number] Closed 09/29/2024 09/29/2025 1 1 Reason for Visit * Imaging (Routine) - Closed Specialty Diagnoses / Procedures Referred By Bren miranda Referred To Contact Radiology Diagnoses Encounter for screening mammogram for malignant neoplasm of breast Procedures [facility] Mammo Digital Screening w Rashmi Lazaro MD Phone: tel: fax: [address] [address] Phone: tel: Referral ID Status Reason Start Date Expiration Date Visits Re quested Visits Authorized [id number] Closed 09/29/2024 09/29/2025 1 1 Encounter Details Date Type Department Care Team (Latest Contact Info) Description 02/25/2025 1:15 PM EDT - 02/25/2025 11:59 PM EDT Hospital [facility] [address] [address] Encounter for screening mammogram for malignant neoplasm of breast Discharge Disposition: Home or Self Care Social History Tobacco Use Types Packs/Day Years Used Date Smoking Tobacco: Never Smokeless Tobacco: Never Alcohol Use Standard Drinks/Week Comments Not Asked 0 (1 standard drink = 0.6 oz pur e alcohol) Comments No Sex and Gender Information Value Date Recorded Sex Assigned at Female 10/06/2024 8:44 AM EST Legal Sex Female 1:58 PM EDT Gender Identity Female 10/06/2024 8:44 AM EST Sexual Orientation Straight 10/06/2024 8: 44 AM EST documented as of this encounter Last Filed Vital Signs Vital Sign Reading Time Taken Comments Blood Pressure - - Pulse - - Temperature - - Respiratory Rate - - Oxygen Saturation - - Inhaled Oxygen Concentration - - Weight 106 kg (234 lb) 02/25/2025 1:40 PM EDT Height 167.6 cm (5' 6 ) 02/25/2025 1:40 PM EDT Body Mass Index 37.77 02/25/2025 1:40 PM EDT documented in this encounter Discharge Disposition Disposition Code Departure Means Destination Home or Self Care documented in this encounter Plan of Treatment Not on file documented as of this encounter Procedures Procedure Name Priority Date/Time Associated Diagnosis Comments MG MAMMO DIGITAL SCREENING W KHADIJAH BILAT Routine 02/25/2025 2:05 PM EDT Encounter for screening mammogram for malignant neoplasm of breast documented in this encounter Results * [facility] Mammo Digital Screening w Khadijah bilat (02/25/2025 2:05 PM EDT) Anatomical Region Laterality Modality Breast Bilateral Mammography 02/25/2025 3:56 PM EDT Impressions 02/25/2025 4:03 PM EDT No evidence of breast malignancy. BI-RADS CATEGORY: 1 - NEGATIVE RECOMMENDATION: Screening bilateral mammogram is recommended in 1 year. Mammo Location: [facility], [address] [place] [address], [id number], . -------- FINAL REPORT -------- Dictated By: Zena Barron Dictated Date: 02/25/2025 15:56 ET Assigned Physician: Zena Barron Reviewed and Electronically Signed By: Zena Barron Signed Date: 02/25/2025 16:03 ET Workstation ID: [id number] Transcribed By: Self Edit Transcribed Date: 02/25/2025 15:56 ET Narrative 02/25/2025 4:03 PM EDT CLINICAL: 54 years old, Female, routine annual exam. COMPARISON: 12/12/2021 and 07/24/2019 ?? TECHNIQUE: Bilateral MLO and CC views were obtained digitally with 3-D mammogram (digital breast tomosynthesis). Computer-aided detection was utilized in evaluation of this exam (CAD). FINDINGS: There is no evidence of suspicious mass or architectural distortion. ??No worrisome calcifications are evident. ??There has been no significant change from prior exam(s). ?? BREAST DENSITY: A - The breasts are almost entirely fatty. Procedure Note Zena Barron MD - 02/25/2025 CLINICAL: 54 years old, Female, routine annual exam. COMPARISON: 12/12/2021 and 07/24/2019 TECHNIQUE: Bilateral MLO and CC views were obtained digitally with 3-Dmammogram (digital breast tomosynthesis). Computer-aided detection wasutilized in evaluation of this exam (CAD). FINDINGS: There is no evidence of suspicious mass or architectural distortion. Noworrisome calcifications are evident. There has been no significantchange from prior exam(s). BREAST DENSITY: A - The breasts are almost entirely fatty. IMPRESSION: No evidence of breast malignancy. BI-RADS CATEGORY: 1 - NEGATIVE RECOMMENDATION: Screening bilateral mammogram is recommended in 1 year. Mammo Location: [facility], [address] [place] [address], [id number], . -------- FINAL REPORT -------- Dictated By: Zena Barron Dictated Date: 02/25/2025 15:56 ET Assigned Physician: Zena Barron Reviewed and Electronically Signed By: Zena Barron Signed Date: 02/25/2025 16:03 ET Workstation ID: [id number] Transcribed By: Self Edit Transcribed Date: 02/25/2025 15:56 ET us Rashmi Alfaro MD IMG BI PROCEDURES Final Res ult documented in this encounter Visit Diagnoses Diagnosis Encounter for screening mammogram for malignant neoplasm of breast documented in this encounter Care Teams Plate Setter Relationship Specialty Start Date End Date Rashmi Alfaro MD [address] [place] [id number] PCP - General 03/06/23 documented as of this encounter
--- OUTSIDE RECORDS SUMMARY | 2025-03-03 17:12 | XMS_ITS | Clinical Summary ---
Author Organization [facility] Address [address] [place] [address] Care Team Providers Care Locator Name Role Phone Rashmi Alfaro MD Primary Care Provider [phone] Encounters Date Type Department Care Team Description 02/25/2025 1:15 PM EDT - 02/25/2025 11:59 PM EDT [facility] [address] [address] Encounter for screening mammogram for malignant neoplasm of breast Discharge Disposition: Home or Self Care from Last 3 Months Surgical History Surgery Date Site/Laterality Comments OTHER SURGICAL HISTORY 01/1109 PROCEDURE: CT SIGMOIDOSCOPY FLX W/BIOPSY SINGLE/MULTIPLE; COMMENT: Up to descending colon, mild colitis at distal sigmoid-bx: Normal, hemorrhoids HEMORRHOID SURGERY PROCEDURE: DESTRUCTION OF HEMORRHOIDS Medical History Medical History Date Comments Seizures (CMS/HCC) DX:Seizures ( HCC) PTSD (post-traumatic stress disorder) DX:PTSD (post-traumatic stress disorder) Post concussive syndrome DX:Post concussive syndrome Migraines DX:Migraines Depression DX:Depression Chronic low back pain DX:Chronic low back pain Neck pain DX:Neck pain Anxiety DX:Anxiety Family History Medical History Relation Name Comments No Known Problems Brother Diabetes Father Hypertension Father Prostate cancer Father Breast cancer Father's Sister Heart attack Maternal Grandfather Other: gastric cancer Maternal Grandmother Hypertension Mother No Known Problems Paternal Grandfather Diabetes Paternal Grandmother Relation Name Status Comments Brother Alive Father Alive Father's Sister Maternal Grandfather Maternal Grandmother Mother Alive Paternal Grandfather Paternal Grandmother Social History Tobacco Use Types Packs/Day Years [...] Orientation Straight 10/06/2024 8: 44 AM EST Obstetrics History Last Filed Vital Signs Vital Sign Reading Time Taken Comments Blood Pressure 110/80 11/08/2022 3:20 PM EST Pulse 80 11/08/2022 3:20 PM EST Temperature - - Respiratory Rate - - Oxygen Saturation - - Inhaled Oxygen Concentration - - Weight 106 kg (234 lb) 02/25/2025 1:40 PM EDT Height 167.6 cm (5' 6 ) 02/25/2025 1:40 PM EDT Body Mass Index 37.77 02/25/2025 1:40 PM EDT Plan of Treatment Health Maintenance Due Date Last Done Comments Hepatitis B Vaccines (1 of 3 - 19+ 3-dose series) 1987 Cervical Cancer Screening: P ap Smear 1989 Pneumococcal Vaccine: 50+ Years (1 of 1 - PCV) 2018 Zoster Vaccines (1 of 2) 2018 Colorectal Cancer Screening: Colonoscopy 02/03/2024 Depression Screening 02/03/2024 HIV Screening 02/03/2024 Hepatitis C Screening 02/03/2024 Medicare Annual Wellness Visit 02/03/2024 Social Influencers of Health Screening 02/03/2024 COVID-19 Vaccine ( - 2023-2 5 season) 2024 Influenza Vaccine (Season Ended) 2025 Breast Cancer Screening 02/25/2027 02/26/20 25, 12/12/2021, 07/24/2019 DTaP,Tdap,and Td Vaccines (2 - Td or Tdap) 03/23/2032 03/23/2022 HIB Vaccines Aged Out No longer eligi ble based on patient's age to complete this topic HPV Vaccines Aged Out No longer eligi ble based on patient's age to complete this topic Hepatitis A Vaccines Aged Out No long er eligible based on patient's age to complete this topic IPV Vaccines Aged Out No longer eligi ble based on patient's age to complete this topic MMR Vaccines Aged Out No longer eligi ble based on patient's age to complete this topic Meningococcal ACWY Vaccine Aged Out N o longer eligible based on patient's age to complete this topic Meningococcal B Vaccine Aged Out No l onger eligible based on patient's age to complete this topic Pneumococcal Vaccine: Pediatrics (0 to 5 Years) and At-Risk Patients (6 to 64 Years) Aged Out No longer eligible b ased on patient's age to complete this topic RSV Immunization Patients Under 20 months Aged Out No longer eligible b ased on patient's age to complete this topic Varicella Vaccines Aged Out No longer eligible based on patient's age to complete this topic Procedures Procedure Name Priority Date/Time Associated Diagnosis Comments MG MAMMO DIGITAL SCREENING W KHADIJAH BILAT Routine 02/25/2025 2:05 PM EDT Encounter for screening mammogram for malignant neoplasm of breast from Last 3 Months Results * MG Mammo Digital Screening w Khadijah bilat (02/25/2025 2:05 PM EDT) Anatomical Region Laterality Modality Breast Bilateral Mammography 02/25/2025 3:56 PM EDT Impressions 02/25/2025 4:03 PM EDT No evidence of breast malignancy. BI-RADS CATEGORY: 1 - NEGATIVE RECOMMENDATION: Screening bilateral mammogram is recommended in 1 year. Mammo Location: [facility], [address] [place] [address], [id number], . -------- FINAL REPORT -------- Dictated By: Zena Barron Dictated Date: 02/25/2025 15:56 ET Assigned Physician: Zena Barron Reviewed and Electronically Signed By: Zena Barron Signed Date: 02/25/2025 16:03 ET Workstation ID: [id number] Transcribed By: Self Edit Transcribed Date: 02/25/2025 [...] year. Mammo Location: [facility], [address] [place] [address], [id number], . -------- FINAL REPORT -------- Dictated By: Zena Barron Dictated Date: 02/25/2025 15:56 ET Assigned Physician: Zena Barron Reviewed and Electronically Signed By: Zena Barron Signed Date: 02/25/2025 16:03 ET Workstation ID: [id number] Transcribed By: Self Edit Transcribed Date: 02/25/2025 15:56 ET us Rashmi Alfaro MD IMG BI PROCEDURES Final Res ult from Last 3 Months Insurance [employer] Care Teams Locator Relationship Specialty Start Date End Date Rashmi Alfaro MD [address] [place] [address] PCP - General 03/06/23
== END 2025-03-03 15:28 | disposition home or self-care (01) ==
LOC: HO.PMC 15:05
PROVIDERS: PCP Family Medicine; Visit Provider Anesthesiology
DX: M54.50 Low back pain, unspecified (principal); M46.1 Sacroiliitis, not elsewhere classified; M53.3 Sacrococcygeal disorders, not elsewhere classified; E66.9 Obesity, unspecified; M17.12 Unilateral primary osteoarthritis, left knee; G57.02 Lesion of sciatic nerve, left lower limb; G89.11 Acute pain due to trauma
CPT/HCPCS: 99215

== ENCOUNTER 2025-03-03 16:23 | Inpatient (IN) | payer MEDICARE, SELFPAY ==
--- NOTE | ~2025-03-03 | CT_ITS ---
CLINICAL HISTORY: nodular left lung apex opacity CT chest without contrast Comparison: CR - XR CHEST 1V - 03/03/25 19:27 EDT Findings: The heart is borderline enlarged. The visualized thyroid and mediastinum are unremarkable. There is increase of bilateral interstitial lung markings. Mild opacity of the bilateral lung base. The opacity of the left lung apex seen on x-ray is the shadow of aortic arch. The visualized upper abdomen is unremarkable. The bones are intact. IMPRESSION: Mild atelectasis/infiltrate of the lung base. Increase of bilateral interstitial lung markings could be seen in pulmonary vascular congestion. This document has been electronically signed by: Mihaela Garcia MD on 03/04/2025 14:08:03
--- NOTE | ~2025-03-03 | CT_ITS ---
EXAMINATION: CT HEAD WITHOUT CONTRAST (STROKE PROTOCOL) CLINICAL INFORMATION: Stroke protocol. Mental status changes, unresponsive. Stroke versus seizure. COMPARISON: None available. TECHNIQUE: Contiguous axial imaging was performed from the skull base to vertex without intravenous administration of contrast. This CT examination was performed using dose optimization techniques as appropriate, variously including the following: *Automated exposure control *Adjustment of mA and/or kV according to patient size (this includes techniques or standardized protocols for targeted exams where dose is matched to indication/reason for exam; i.e. extremities or head) *Use of iterative reconstruction technique FINDINGS: There is no evidence of intracranial hemorrhage or extra-axial fluid collection. There is no mass effect, or edema. No CT evidence of acute territorial infarct. Ventricles, sulci, and cisterns are normal in size and configuration for patient age. No hydrocephalus. No midline shift. Negative hyperdense MCA sign. Negative insular ribbon sign. Patchy periventricular and deep white matter hypoattenuation is consistent with mild small vessel ischemic changes. Partial empty sella. There is hypertelorism. Globes and orbital contents otherwise image normally. No extracranial soft tissue abnormalities. The paranasal sinuses, mastoid air cells, and tympanic cavities are normally aerated. No suspicious bony abnormalities. There are no acute fractures evident. CT/CT head for STROKE IMPRESSION: No acute intracranial abnormality. Electronically signed by: Bishop Aguirre MD 03/03/2025 04:53 PM EDT
--- NOTE | ~2025-03-03 | XR_ITS ---
CLINICAL HISTORY: low oxygen saturations 1 view chest x-ray Comparison: None Findings: There is increase of bilateral interstitial lung markings with patchy opacities. There is a nodular density of the left lung apex medially. Heart size is normal. No acute fracture. IMPRESSION: Nodular opacity of the left lung apex medially. Further evaluation by CT of the chest is recommended as indicated. No large consolidation. Patchy opacities of the bilateral lungs. Infection/inflammation can not be excluded. This document has been electronically signed by: Mihaela Garcia MD on 03/03/2025 20:18:06
[2025-03-03 16:25] VITALS: BP 122/87; PULSE 98; RESP 16; TEMP 36.2; O2SAT 91; BMI 37.7
--- NOTE | 2025-03-03 16:33 | ED_ITS ---
HPI - General Adult General Chief complaint: General Medical Stated complaint: L- Spine W/ Obligues and Bending Time Seen by Provider: 03/03/25 16:29 History of Present Illness ED Provider: Mike MUKHERJEE narrative: The patient is a 54-year-old woman who apparently has a history of nonepileptic seizures. She also has a history of low back pain. Today she came to the hospital and was seen at the pain clinic by Dr. Hanks. After the appointment she was sent for x-rays. Apparently the patient collapsed while getting outpatient x-rays. She seemed unresponsive. She was sent to the emergency room. On arrival here her blood sugar was 104. The patient is not speaking in his not giving me any history. The patient does not seem to have a history of frequent visits to the emergency room. No other history is available. Related Data Home Medications ?Medication ?Instructions ?Recorded ?Confirmed hydroxyzine HCl 50 mg tablet 50 mg PO BID 01/01/22 03/04/25 acetaminophen 325 mg capsule 325 mg PO QID PRN Pain 02/06/22 03/04/25 (Tylenol) clonidine HCl 0.1 mg tablet 0.1 mg PO TID 02/06/22 03/04/25 furosemide 20 mg tablet (Lasix) 20 mg PO DAILY 02/06/22 03/04/25 quetiapine 400 mg tablet (Seroquel) 400 mg PO BEDTIME 02/06/22 03/04/25 sumatriptan succinate 100 mg 100 mg PO DAILY PRN Migraine 02/06/22 03/04/25 tablet (Imitrex) Headache topiramate 100 mg tablet (Topamax) 100 mg PO BEDTIME 02/06/22 03/04/25 venlafaxine 150 mg 300 mg PO DAILY 02/06/22 03/04/25 capsule,extended release 24 hr (Effexor XR) lamotrigine 200 mg tablet 200 mg PO BID 03/05/22 03/04/25 (Lamictal) meloxicam 15 mg tablet 15 mg PO DAILY PRN Pain 10/08/22 03/04/25 lidocaine 5 % topical ointment 1 appl topical QID PRN Pain 01/28/24 03/04/25 nystatin 100,000 unit/gram topical 1 appl topical BID 06/30/24 03/04/25 powder cholecalciferol (vitamin D3) 25 25 mcg PO DAILY 03/04/25 03/04/25 mcg (1,000 unit) tablet (Vitamin D3) clonazepam 0.5 mg tablet 0.5 mg PO BID 03/04/25 03/04/25 diclofenac sodium 1 % topical gel 4 g topical QID PRN Pain 03/04/25 03/04/25 docusate sodium 50 mg capsule 50 mg PO DAILY 03/04/25 03/04/25 gabapentin 300 mg capsule 1,200 mg PO BEDTIME 03/04/25 03/04/25 gabapentin 300 mg capsule 300 mg PO BID@0900,1300 03/04/25 03/04/25 losartan 25 mg tablet 25 mg PO DAILY 03/04/25 03/04/25 melatonin 5 mg tablet 20 mg PO BEDTIME PRN Insomnia 03/04/25 03/04/25 polyethylene glycol 3350 17 17 g PO DAILY 03/04/25 03/04/25 gram/dose oral powder (Miralax) rosuvastatin 20 mg tablet 20 mg PO DAILY 03/04/25 03/04/25 sennosides 8.6 mg tablet (senna) 8.6 mg PO DAILY PRN Constipation 03/04/25 03/04/25 topiramate 25 mg tablet 25 mg PO DAILY 03/04/25 03/04/25 tramadol 50 mg tablet 50 mg PO Q6H PRN Pain 03/04/25 03/04/25 vitamin B complex 1 tab PO DAILY 03/04/25 03/04/25 Previous Rx's ?Medication ?Instructions ?Recorded albuterol sulfate 90 mcg/actuation 2 puff inhalation Q6H PRN 01/27/24 aerosol inhaler cough/bronchospasm #8.5 grams cyclobenzaprine 10 mg tablet 10 mg PO BID PRN muscle spasm 30 04/08/24 days #60 tabs Allergies Allergy/AdvReac Type Severity Reaction Status Date / Time adhesive tape Allergy Unknown Unknown Verified 03/03/25 16:26 amoxicillin [From Augmentin] AdvReac Severe colitis Verified 03/03/25 15:09 clavulanic acid AdvReac Severe colitis Verified 03/03/25 15:09 [From Augmentin] Review of Systems 2 Review of Systems: Yes Unobtainable due to mental status PMFSH Past Medical History Medical History (Updated 03/04/25 @ 05:53 by Hayley Rivera PA-C) Type 2 diabetes mellitus without complications Obesity (BMI 30.0-34.9) Restrictive lung disease Nocturnal hypoxemia Morbid obesity Migraine Psychogenic nonepileptic seizure Surgical History No pertinent past surgical history Family History Family History Father Cancer Paternal Aunt Cancer Social History Social History Alcohol intake: never Patient Tobacco Use Status: Never used Tobacco Advance Directives: No Advance Directives Information Provided: No Nutrition Risks: No Nutritional Risk Physical Exam ED Vital Signs: Vital Signs - 24 hr 03/03/25 16:25 03/03/25 18:20 03/03/25 19:47 Temperature 97.2 F 97.5 F Pulse Rate 98 100 95 Respiratory Rate 16 18 20 Blood Pressure 122/87 148/93 H 144/74 H Pulse Oximetry 91 L 97 97 Oxygen Delivery Method Nasal Cannula Nasal Cannula Oxygen Flow Rate 2 3 03/03/25 21:08 03/04/25 03:01 03/04/25 04:33 Temperature 98.5 F 97.4 F 98.0 F Pulse Rate 86 89 Respiratory Rate 20 15 Blood Pressure 138/92 H 131/86 Pulse Oximetry 96 95 Oxygen Delivery Method Nasal Cannula Nasal Cannula Oxygen Flow Rate 2 2 BMI result Body Mass Index 37.7 Const Other: The patient is somewhat chronically ill-appearing 54-year-old woman whose eyes were closed then whose limbs were moving in a somewhat rhythmic but unusual manner. She did not respond to verbal stimuli and she had minimal response to painful stimuli. HENMT Other: The patient has an unusual facies. No obvious facial asymmetry. Mucous membranes were moist. Eyes Other: The gaze was somewhat dysconjugate it initially but at other times more conjugate. Pupils were round equal. They were not pinpoint. Extraocular movements seemed intact. Neck Other: No neck swelling or masses or palpable abnormality. The neck was supple. Resp Other: Slightly coarse air entry bilaterally. No marked increased work of breathing. Cardio Rate: regular rate Rhythm: regular rhythm Heart sounds: S1 normal heart sound present and S2 normal heart sound present GI Other: The abdomen was soft nontender Skin Other: skin was pale and dry. Neuro Other: The patient's neurologic exam was am was challenging. She was intermittently moving her extremities in unusual ways. She initially did not seem responsive to verbal stimuli although she occasionally initially seemed to stop her unusual movements when addressed directly. At one point I had the impression that she might be trying to whisper something but this was transient. She did not seem to have any typical response to painful stimuli with nail bed pressure. When I lifted her arms and let them fall they fell flaccid to the bed however if I held her arm so her hand would strike her face her hand did not strike her face. she was not speaking. Overall she had a very unusual neurological exam but without definite focal finding. Extrem Other: No peripheral edema. Good pulses in extremities. Medications Administered Generic Name Dose Route Start Last Admin Trade Name Freq PRN Reason Stop Dose Admin Enoxaparin Sodium 40 mg 03/04/25 09:00 03/04/25 09:01 Enoxaparin Sodium 40 Mg/0.4 Ml Syringe SUBCUT 40 mg Q24H OUMAR Administration Insulin Human Lispro 0 unit 03/04/25 07:30 03/04/25 06:25 Insulin Lispro 100 Unit/Ml 3 Ml Vial SUBCUT Not Given QIDACHS [facility] Protocol Levetiracetam 1,000 mg 03/04/25 09:00 03/04/25 09:01 Levetiracetam 1,000 Mg Tablet PO 1,000 mg BID OUMAR Administration Sodium Chloride 3 ml 03/04/25 08:00 03/04/25 08:35 0.9 % Sodium Chloride Flush 3 Ml Syringe IVFLUSH Not Given QSHIFT OUMAR Venlafaxine HCl 300 mg 03/04/25 09:00 03/04/25 09:11 Venlafaxine Hcl Er 150 Mg Cap.Er.24h PO 300 mg DAILY OUMAR Administration Discontinued Medications Generic Name Dose Route Start Last Admin Trade Name Freq PRN Reason Stop Dose Admin Gabapentin 600 mg 03/04/25 09:00 03/04/25 09:01 Gabapentin 300 Mg Capsule PO 03/04/25 09:01 600 mg ONCE ONE Administration Sodium Chloride 1,000 mls @ 999 mls/hr 03/03/25 18:00 03/03/25 19:17 Ns IV 03/03/25 19:00 Infused .Q1H1M OUMAR Infusion Levetiracetam 2,000 mg/ Sodium 120 mls @ 480 mls/hr 03/03/25 20:00 03/03/25 20:55 Chloride IV 03/03/25 20:14 Infused ONCE ONE Infusion Levetiracetam 1,000 mg in 100 mls @ 400 mls/hr 03/03/25 20:15 03/03/25 20:22 Keppra IV 03/03/25 20:29 Infused ONCE ONE Infusion Lactated Ringer's 1,000 mls @ 999 mls/hr 03/03/25 22:15 03/03/25 23:24 Lr IV 03/03/25 23:15 Infused .Q1H1M OUMAR Infusion Lorazepam 2 mg 03/03/25 19:05 03/03/25 19:18 Lorazepam 2 Mg/Ml Vial IVPUSH 03/03/25 19:06 2 mg ONCE ONE Administration Midazolam HCl 6 mg 03/03/25 16:45 03/03/25 16:39 Midazolam Hcl 10 Mg/10 Ml Vial IVPUSH 03/03/25 16:46 6 mg ONCE ONE Administration Medical Decision Making Medical Decision Making [facility] Narrative: The patient is a 54-year-old woman who presented to the emergency room from outpatient radiology where she apparently had some kind of an episode of collapse or seizure. Her blood sugar was normal. Her vital signs were essentially unremarkable although her oxygen saturations were slightly low. The review of her chart indicates a history of psychogenic nonepileptic seizures. She is on lamotrigine, topiramate, gabapentin, and clonazepam. She was initially unable to give any history and no one else was initially present. Ultimately her mother arrived who was [place]-speaking only. I spoke to the mother using an ammonia still operator and the mother denied any knowledge of the patient having any kind of a seizure disorder or ever having seen the patient exhibit unusual behavior in the past. My initial impression was that the patient was probably exhibiting psychogenic nonepileptic seizure-like activity. She was given 6 mg of midazolam IV initially. This seemed to stop her unusual movements. However her unusual movements returned 20 or 30 minutes later and her neurological exam returned to its initial unusual condition with bizarre movements that did not look like movements of a typical of the left big seizure. Ultimately the patient was given IV lorazepam and also IV levetiracetam as the patient was not waking up or responding in any kind of normal way. In the meantime she had a negative head CT. She also had laboratory evaluation that was unremarkable and not highly suggestive of epileptic seizures. Ultimately the patient's arrived in the emergency room and confirmed that the patient has had unusual seizure-like activity in the past although he could not say for sure if today's manifestation was similar to previous episodes in the past. We continued to observe the patient. Ultimately she became coherent than somewhat verbal although she was not fully awake and seemed very tired. Whether this was because of benzodiazepine administration or fatigue from a possible seizure was not clear. After several hours of observation during which she remained quite fatigued I felt she should be admitted to the hospital for further observation and possibly a Neurology consult. Lab Data 03/04/25 09:14 03/04/25 09:14 Labs: Lab Results 03/03/25 03/03/25 03/03/25 Range/Units 16:42 16:57 17:06 WBC 8.3 (4.8-10.8) X10*3/uL RBC 4.81 (4.20-5.50) X10*6/uL Hgb 13.9 (12.0-16.0) g/dl Hct 40.7 (37.0-47.0) % MCV 84.6 (80.0-98.0) fL MCH 28.9 (27.0-33.0) pg MCHC 34.2 (31.0-35.0) g/dl RDW 12.6 (11.0-16.0) % Plt Count 183 (160-400) X10*3/uL MPV 9.6 (9.4-12.3) fL Immature Gran % (Auto) 0.2 (0.0-0.4) % Neut % (Auto) 62.4 (45-73) % Lymph % (Auto) 23.1 (20-40) % Leon % (Auto) 6.4 (2-11) % Eos % (Auto) 7.3 H (0-4) % Baso % (Auto) 0.6 (0-2) % Lymph # (Auto) 1.9 (1.2-4.9) X10*3/uL Leon # (Auto) 0.5 (0.1-1.2) X10*3/uL Eos # (Auto) 0.6 H (0.0-0.4) X10*3/uL Baso # (Auto) 0.1 (0.0-0.2) X10*3/uL Abs Immat Gran (auto) 0.02 (0.00-0.03) X10*3/uL Absolute Neuts (auto) 5.2 (2.0-8.3) x10*3/uL Absolute Nucleated RBC 0.000 (0.0-0.012) X10*3/uL Nucleated RBC % (auto) 0.0 (0.0-0.2) /100WBC PT 10.3 L (10.9-12.4) SEC INR 0.9 (0.9-1.1) D-Dimer High Sensitivty < 150 NG/ML VBG pH 7.36 (7.32-7.43) VBG pCO2 58 mmHg VBG pO2 40 mmHg VBG HCO3 33 H (22-26) mmol/L VBG O2 Saturation 69.0 % VBG Base Excess 6.3 mmol/L Sodium 141 (135-145) mmol/L Potassium 3.7 (3.3-5.1) mmol/L Chloride 107 (96-108) mmol/L Carbon Dioxide 29 (22-29) mmol/L Anion Gap 9 L (12-20) BUN 21 H (9-16) mg/dL Creatinine 1.28 (0.5-1.4) mg/dL Estim Creat Clear Calc 66.6 Estimated GFR 43 Random Glucose 100 (60-115) mg/dL Lactic Acid 1.1 (0.5-2.0) mmol/L Calcium 9.1 (8.4-10.2) mg/dL Magnesium 2.1 (1.6-2.6) mg/dL Total Bilirubin 0.3 (0.0-1.0) mg/dL Direct Bilirubin 0.1 (0.0-0.5) mg/dL AST 25 (5-31) U/L ALT 19 (0-31) U/L Alkaline Phosphatase 104 (39-117) U/L Troponin I High Sens < 2.7 (<3.5-17.0) ng/L C-Reactive Protein 0.40 (< or = 0.50) mg/dL B-Natriuretic Peptide 15 (<100) pg/mL Total Protein 6.7 (6.5-8.0) g/dL Albumin 4.2 (3.5-5.0) g/dL Ethyl Alcohol < 10 mg/dL Influenza Type A (PCR) NEGATIVE (Negative) Influenza Type B (PCR) NEGATIVE (Negative) RSV RNA Qual (PCR) NEGATIVE (Negative) SARS-CoV-2 RNA (RT-PCR) NEGATIVE (Negative) Critical Care Time Critical Care Time Critical Care Time: Yes Total Critical Care Time: 35 Attestation: The patient was critically ill with a high probability of imminent or life- threatening deterioration. I spent greater than 30 minutes of discontinuous time evaluating the patient, delivering critical care at the bedside, discussing evaluating data with consultants. Critical care time does not include time spent performing separately billable procedures or teaching. Time spent performing critical care with 35 minutes. Discharge Plan Discharge Clinical Impression: Seizure-like activity Patient Disposition: Admitted As Inpatient Interventions: Admission Worksheet (ED) Last Done: 03/04/25 07:53 Discharge Date/Time: 03/04/25 08:35
--- NOTE | 2025-03-03 16:34 | ECG_ITS ---
Test Reason : ?seizure Blood Pressure : */* mmHG Vent. Rate : 95 BPM Atrial Rate : 95 BPM P-R Int : 178 ms QRS Dur : 96 ms QT Int : 382 ms P-R-T Axes : 36 26 28 degrees QTcB Int : 480 ms Normal sinus rhythm Prolonged QT Abnormal ECG No previous ECGs available Referred By: Warner Mckeon Electronically Signed By: Trevin Rees
[2025-03-03 16:51] LABS: MANUAL DIFF FLAG NO
[2025-03-03 16:53] LABS: Basophils Absolute Auto 0.1 X10*3/uL (0.0-0.2); Basophils Percent Auto 0.6 % (0-2); Eosinophils Absolute Auto 0.6 X10*3/uL (0.0-0.4); Eosinophils Percent Auto 7.3 % (0-4); Hematocrit 40.7 % (37.0-47.0); Hemoglobin 13.9 g/dl (12.0-16.0); Imm Gran Abs Auto 0.02 X10*3/uL (0.00-0.03); Imm Gran Pct Auto 0.2 % (0.0-0.4); Lymphocytes Absolute Auto 1.9 X10*3/uL (1.2-4.9); Lymphocytes Percent Auto 23.1 % (20-40); Mean Corpuscular HGB Conc 34.2 g/dl (31.0-35.0); Mean Corpuscular Hemoglobin 28.9 pg (27.0-33.0); Mean Corpuscular Volume 84.6 fL (80.0-98.0); Mean Platelet Volume 9.6 fL (9.4-12.3); Monocytes Absolute Auto 0.5 X10*3/uL (0.1-1.2); Monocytes Percent Auto 6.4 % (2-11); Neutrophils Absolute Auto 5.2 x10*3/uL (2.0-8.3); Neutrophils Percent Auto 62.4 % (45-73); Platelet Count 183 X10*3/uL (160-400); Red Blood Count 4.81 X10*6/uL (4.20-5.50); Red Cell Distribution Width 12.6 % (11.0-16.0); White Blood Count 8.3 X10*3/uL (4.8-10.8)
--- NOTE | 2025-03-03 16:53 | PC.NURSE ---
on arrival to ED room4 pt was minimally responsive - responsive to painful stimuli and pos plantar reflexes. pupils reactive. limbs limp without much purposeful movement. found to be 89-90% on RA and 2L O2 applied with good result. (spO2 95%.) before CT scan pt limbs were shaking in a possible seizure episode. verbal order for midazolam IV obtained and given beofre CT. Vitals remained stable throughout episode.
[2025-03-03 17:11] LABS: Venous Blood Gas Refer to POC result
[2025-03-03 17:11] LABS: VBG Base Excess 6.3 mmol/L; VBG HCO3 33 mmol/L (22-26); VBG pCO2 58 mmHg; VBG pH 7.36 (7.32-7.43); VBG pO2 40 mmHg
[2025-03-03 17:15] LABS: INTERNATIONAL NORM RATIO 0.9 (0.9-1.1); Prothrombin Time 10.3 SEC (10.9-12.4)
[2025-03-03 17:18] LABS: Alanine Aminotransferase 19 U/L (0-31); Albumin Level 4.2 g/dL (3.5-5.0); Alkaline Phosphatase 104 U/L (39-117); Anion Gap 9 (12-20); Aspartate Amino Transferase 25 U/L (5-31); Bilirubin Direct 0.1 mg/dL (0.0-0.5); Bilirubin Total 0.3 mg/dL (0.0-1.0); Blood Urea Nitrogen 21 mg/dL (9-16); Calcium 9.1 mg/dL (8.4-10.2); Carbon Dioxide 29 mmol/L (22-29); Chloride 107 mmol/L (96-108); Creatinine Clr Calc Pharmacy 66.6; Estimated Glomerular Filt Rate 43; Ethanol < 10 mg/dL; Glucose Random 100 mg/dL (60-115); Magnesium 2.1 mg/dL (1.6-2.6); Potassium 3.7 mmol/L (3.3-5.1); Sodium 141 mmol/L (135-145); Total Protein 6.7 g/dL (6.5-8.0)
[2025-03-03 17:24] LABS: Lactic Acid 1.1 mmol/L (0.5-2.0)
[2025-03-03 17:27] LABS: Troponin-I High Sensitivity < 2.7 ng/L (<3.5-17.0)
[2025-03-03 17:30] LABS: B Type Natriuretic Peptide 15 pg/mL (<100)
[2025-03-03] MEDS: 0.9 % Sodium Chloride 1,000 ML 999 ML IV (17:57)
[2025-03-03 18:20] VITALS: BP 148/93; PULSE 100; RESP 18; TEMP 36.4; O2SAT 97
[2025-03-03 18:21] LABS: Influenza A PCR NEGATIVE (Negative); Influenza B PCR NEGATIVE (Negative); Resp Syncy Virus RNA Qual PCR NEGATIVE (Negative); SARS COV2 PCR INHOUSE NEGATIVE (Negative)
[2025-03-03] MEDS: LORazepam 2 MG/ML VIAL IVPUSH (19:18)
[2025-03-03] MEDS: levETIRAcetam in NaCl (iso-os) 1,000 MG/100 ML PIGGYBACK 400 MG IV (19:44)
[2025-03-03 19:47] VITALS: BP 144/74; PULSE 95; RESP 20; O2SAT 97
[2025-03-03 19:54] LABS: D Dimer High Sensitivity < 150 NG/ML
[2025-03-03] MEDS: levETIRAcetam 2,000 MG in 0.9 % Sodium Chloride 100 ML 480 MG IV (20:22)
[2025-03-03 21:08] VITALS: TEMP 36.9
--- NOTE | 2025-03-03 21:08 | PC.NURSE ---
patient now awake and conversing appropriately with staff and family.
[2025-03-03] MEDS: Lactated Ringers 1,000 ML 999 ML IV (22:33)
[2025-03-04] VITALS (7 sets, daily range): BP systolic 131–157; BP diastolic 78–92; PULSE 80–92; RESP 15–20; TEMP 36.2–37.2; O2SAT 93–97
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
[2025-03-04 06:28] LABS: Glucose, Whole Blood 114 mg/dL (60-115)
--- NOTE | 2025-03-04 08:23 | MHC.EDTECH ---
pt assisted to bedpan via this tech and RN, able to void, unable to obtain clean catch sample. pt provided pericare and cleaned up. POC taken (result: 120) RN aware, awaiting transport to admit bed
[2025-03-04 08:25] LABS: Glucose, Whole Blood 120 mg/dL (60-115)
[2025-03-04] MEDS: levETIRAcetam 1,000 MG TABLET 1000 MG PO ×2 (09:01→21:06)
[2025-03-04] MEDS: Gabapentin 300 MG CAPSULE 600 MG PO (09:01)
[2025-03-04] MEDS: Enoxaparin Sodium 40 MG/0.4 ML SYRINGE SUBCUT (09:01)
[2025-03-04] MEDS: Venlafaxine HCl ER 150 MG CAP.ER.24H 300 MG PO (09:11)
[2025-03-04 09:31] LABS: Hematocrit 42.7 % (37.0-47.0); Hemoglobin 14.5 g/dl (12.0-16.0); Mean Corpuscular Hemoglobin 28.8 pg (27.0-33.0); Mean Corpuscular Volume 84.7 fL (80.0-98.0); Mean Platelet Volume 9.4 fL (9.4-12.3); Platelet Count 185 X10*3/uL (160-400); Red Blood Count 5.04 X10*6/uL (4.20-5.50); Red Cell Distribution Width 12.5 % (11.0-16.0); White Blood Count 6.5 X10*3/uL (4.8-10.8)
[2025-03-04 09:35] LABS: Estimated Average Glucose 137 mg/dL; Hemoglobin A1C 176.9942 umol/L; Hemoglobin A1c % 6.4 % (<6.0); Total Hemoglobin (HGBA1C) 3794.7941 umol/L
[2025-03-04 09:42] LABS: Anion Gap 10 (12-20); Blood Urea Nitrogen 16 mg/dL (9-16); Calcium 8.8 mg/dL (8.4-10.2); Carbon Dioxide 30 mmol/L (22-29); Chloride 108 mmol/L (96-108); Estimated Glomerular Filt Rate 52; Glucose Random 120 mg/dL (60-115); Potassium 4.1 mmol/L (3.3-5.1); Sodium 144 mmol/L (135-145)
--- NOTE | 2025-03-04 09:58 | PHA.MEDREC ---
Pharmacy Consult ? Medication Reconciliation Pharmacy has completed the medication reconciliation. Spoke to patient at bedside, she was able to confirm her medications. She also takes diclofenac ointment, miralax, colace, senna, a vitamin B complex, Vitamin D3, and Melatonin over the counter. Confirmed melatonin is 20mg.
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
--- NOTE | 2025-03-04 11:11 | MHC.CM.PN ---
IMM 03/04. Pt self-care, lives at home with her who will transport her home at discharge. Pt uses home oxygen. Education provided on HCP, pt declines at this time. PCP: Dr. Rashmi Alfaro
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
[2025-03-04 12:05] LABS: Glucose, Whole Blood 137 mg/dL (60-115)
[2025-03-04 15:49] LABS: Glucose, Whole Blood 131 mg/dL (60-115)
--- NOTE | 2025-03-04 16:25 | HO.PM.IMPN ---
Subjective Subjective Date of Service: 03/04/25 Interval History: depressed Physical Exam Vital Signs: Vital Signs: Last Vital Signs Temp 98.9 F 03/04/25 15:29 Pulse 89 03/04/25 15:29 Resp 18 03/04/25 15:29 BP 157/80 H 03/04/25 15:29 Pulse Ox 94 03/04/25 15:29 O2 Del Method Room Air 03/04/25 15:29 O2 Flow Rate 2 03/04/25 04:33 BMI result Body Mass Index 37.7 General: AO X 3, no acute distress Resp: CTA bilateral, no accessory muscles used CVS: S1,S2,RRR GI: soft, non tender, non distended Neuro: motor grossly intact, alert Objective Data Active Medications Acetaminophen (Acetaminophen 325 Mg Tablet) 975 mg PO Q6H PRN PRN Reason: Pain, Mild 1-3,fever,headache Calcium Carbonate (Calcium Carbonate 750 Mg Tab.Chew) 750 mg PO Q4H PRN PRN Reason: Heartburn Dextrose (Dextrose 50 % 25 Gm/50 Ml Syringe) 25 gm IVPUSH Q15M PRN; Protocol PRN Reason: per Hypoglycemia Standing Ord. Enoxaparin Sodium (Enoxaparin Sodium 40 Mg/0.4 Ml Syringe) 40 mg SUBCUT Q24H [facility] Last Admin: 03/04/25 09:01 Dose: 40 mg Documented By: RICKI Glucose (Glucose Gel 15 Gm Gel..Gram.) 15 gm PO Q15M PRN; Protocol PRN Reason: per Hypoglycemia Standing Ord. Insulin Human Lispro (Insulin Lispro 100 Unit/Ml 3 Ml Vial) 0 unit SUBCUT QIDACHS [facility]; Protocol Last Admin: 03/04/25 12:49 Dose: Not Given Documented By: RICKI Non-Admin Reason: No Insulin Coverage Levetiracetam (Levetiracetam 1,000 Mg Tablet) 1,000 mg PO BID [facility] Last Admin: 03/04/25 09:01 Dose: 1,000 mg Documented By: RICKI Magnesium Hydroxide (Milk Of Magnesia 30 Ml Oral.Susp) 30 ml PO DAILY PRN PRN Reason: Constipation Melatonin (Melatonin 3 Mg Tablet) 6 mg PO BEDTIME PRN PRN Reason: Insomnia Morphine Sulfate (Morphine Sulfate 4 Mg/Ml Cartridge) 2 mg IVPUSH Q4H PRN; Protocol PRN Reason: Pain, Severe (Pain Scale 7-10) Oxycodone HCl (Oxycodone Hcl Immed Release 5 Mg Tablet) 5 mg PO Q6H PRN PRN Reason: Pain, Moderate(Pain Scale 4-6) Sodium Chloride (0.9 % Sodium Chloride Flush 3 Ml Syringe) 3 ml IVFLUSH QSHIFT [facility] Last Admin: 03/04/25 08:35 Dose: Not Given Documented By: LALO Non-Admin Reason: IV Running Topiramate (Topiramate 100 Mg Tablet) 100 mg PO BEDTIME [facility] Venlafaxine HCl (Venlafaxine Hcl Er 150 Mg Cap.Er.24h) 300 mg PO DAILY [facility] Last Admin: 03/04/25 09:11 Dose: 300 mg Documented By: RICKI Labs 03/04/25 09:14 03/04/25 09:14 Labs: Laboratory Results - last 24 hr 03/03/25 03/03/25 03/03/25 16:42 16:57 17:06 MCV 84.6 MCH 28.9 MCHC 34.2 RDW 12.6 Plt Count 183 MPV 9.6 Immature Gran % (Auto) 0.2 Neut % (Auto) 62.4 Lymph % (Auto) 23.1 [place] % (Auto) 6.4 Eos % (Auto) 7.3 H Baso % (Auto) 0.6 Lymph # (Auto) 1.9 [place] # (Auto) 0.5 Eos # (Auto) 0.6 H Baso # (Auto) 0.1 Abs Immat Gran (auto) 0.02 Absolute Neuts (auto) 5.2 Absolute Nucleated RBC 0.000 Nucleated RBC % (auto) 0.0 PT 10.3 L INR 0.9 D-Dimer High Sensitivty < 150 VBG pH 7.36 VBG pCO2 58 VBG pO2 40 VBG HCO3 33 H VBG O2 Saturation 69.0 VBG Base Excess 6.3 Anion Gap 9 L Estim Creat Clear Calc 66.6 Estimated GFR 43 POC Glucose Random Glucose 100 Estimat Average Glucose Hemoglobin A1c % Lactic Acid 1.1 Calcium 9.1 Magnesium 2.1 Total Bilirubin 0.3 Direct Bilirubin 0.1 AST 25 ALT 19 Alkaline Phosphatase 104 C-Reactive Protein 0.40 B-Natriuretic Peptide 15 Total Protein 6.7 Albumin 4.2 Ethyl Alcohol < 10 Influenza Type A (PCR) NEGATIVE Influenza Type B (PCR) NEGATIVE RSV RNA Qual (PCR) NEGATIVE SARS-CoV-2 RNA (RT-PCR) NEGATIVE 03/04/25 03/04/25 03/04/25 06:24 08:10 09:14 MCV 84.7 MCH 28.8 MCHC 34.0 RDW 12.5 Plt Count 185 MPV 9.4 Immature Gran % (Auto) Neut % (Auto) Lymph % (Auto) [place] % (Auto) Eos % (Auto) Baso % (Auto) Lymph # (Auto) [place] # (Auto) Eos # (Auto) Baso # (Auto) Abs Immat Gran (auto) Absolute Neuts (auto) Absolute Nucleated RBC 0.000 Nucleated RBC % (auto) 0.0 PT INR D-Dimer High Sensitivty VBG pH VBG pCO2 VBG pO2 VBG HCO3 VBG O2 Saturation VBG Base Excess Anion Gap 10 L Estim Creat Clear Calc 79.0 Estimated GFR 52 POC Glucose 114 120 H Random Glucose 120 H Estimat Average Glucose 137 Hemoglobin A1c % 6.4 H Lactic Acid Calcium 8.8 Magnesium Total Bilirubin Direct Bilirubin AST ALT Alkaline Phosphatase C-Reactive Protein B-Natriuretic Peptide Total Protein Albumin Ethyl Alcohol Influenza Type A (PCR) Influenza Type B (PCR) RSV RNA Qual (PCR) SARS-CoV-2 RNA (RT-PCR) 03/04/25 03/04/25 12:01 15:42 MCV MCH MCHC RDW Plt Count MPV Immature Gran % (Auto) Neut % (Auto) Lymph % (Auto) [place] % (Auto) Eos % (Auto) Baso % (Auto) Lymph # (Auto) [place] # (Auto) Eos # (Auto) Baso # (Auto) Abs Immat Gran (auto) Absolute Neuts (auto) Absolute Nucleated RBC Nucleated RBC % (auto) PT INR D-Dimer High Sensitivty VBG pH VBG pCO2 VBG pO2 VBG HCO3 VBG O2 Saturation VBG Base Excess Anion Gap Estim Creat Clear Calc Estimated GFR POC Glucose 137 H 131 H Random Glucose Estimat Average Glucose Hemoglobin A1c % Lactic Acid Calcium Magnesium Total Bilirubin Direct Bilirubin AST ALT Alkaline Phosphatase C-Reactive Protein B-Natriuretic Peptide Total Protein Albumin Ethyl Alcohol Influenza Type A (PCR) Influenza Type B (PCR) RSV RNA Qual (PCR) SARS-CoV-2 RNA (RT-PCR) Assessment and Plan (1) Psychogenic nonepileptic seizure: Status: Acute Plan 54F PMH epileptic and nonepileptic seizures, hypertension, hyperlipidemia, DM, obesity hypoventilation/ANETA presented with seizure-like Seizure-like episode Discussed with neurology likely nonepileptic, continue antiepileptics for history of epileptic seizure No need for EEG Plan was to discharged home, however, patient is now requesting voluntary inpatient psychiatric admission DM insulin aneta/ohs/obesity weight loss Quality Stroke Does the patient have a stroke diagnosis?: No VTE Prior VTE?: No VTE Risk Level:: Medical - moderate - high VTE Device Contraindication: Treatment Not Indicated VTE Drug Contraindication: N/A - Med Ordered
[2025-03-04] MEDS: oxyCODONE HCl Immed Release 5 MG TABLET PO (16:48)
[2025-03-04] MEDS: 0.9 % Sodium Chloride Flush 3 ML SYRINGE IVFLUSH ×2 (16:50→21:08)
--- NOTE | 2025-03-04 19:52 | MHC.CARE ---
Pt referred to [facility]- referral activated @7:50pm, spoke with Addie. Referral in review
[2025-03-04 20:03] LABS: Glucose, Whole Blood 93 mg/dL (60-115)
[2025-03-04] MEDS: lamoTRIgine 100 MG TABLET 200 MG PO (21:06)
[2025-03-04] MEDS: Gabapentin 400 MG CAPSULE 1200 MG PO (21:07)
[2025-03-04] MEDS: cloNIDine HCL 0.1 MG TABLET PO (21:07)
[2025-03-04] MEDS: hydrOXYzine HCL 50 MG TABLET PO (21:07)
[2025-03-04] MEDS: Topiramate 100 MG TABLET PO (21:07)
[2025-03-04] MEDS: QUEtiapine Fumarate 400 MG TABLET PO (21:07)
[2025-03-04] MEDS: clonazePAM 0.5 MG TABLET PO (21:07)
[2025-03-04] MEDS: Cyclobenzaprine HCl 10 MG TABLET PO (21:45)
[2025-03-04] MEDS: SUMAtriptan succinate 100 MG TABLET PO (21:46)
[2025-03-05 03:09] VITALS: BP 145/80; PULSE 82; RESP 18; TEMP 36.2; O2SAT 93
[2025-03-05 07:00] VITALS: BP 150/70; PULSE 86; RESP 18; TEMP 36.3; O2SAT 95
[2025-03-05 07:08] LABS: Glucose, Whole Blood 137 mg/dL (60-115)
[2025-03-05 07:56] LABS: Hematocrit 44.2 % (37.0-47.0); Hemoglobin 14.5 g/dl (12.0-16.0); Mean Corpuscular HGB Conc 32.8 g/dl (31.0-35.0); Mean Corpuscular Hemoglobin 28.3 pg (27.0-33.0); Mean Corpuscular Volume 86.3 fL (80.0-98.0); Mean Platelet Volume 9.5 fL (9.4-12.3); Platelet Count 176 X10*3/uL (160-400); Red Blood Count 5.12 X10*6/uL (4.20-5.50); Red Cell Distribution Width 12.5 % (11.0-16.0)
[2025-03-05 08:11] LABS: Anion Gap 12 (12-20); Blood Urea Nitrogen 16 mg/dL (9-16); Carbon Dioxide 27 mmol/L (22-29); Chloride 108 mmol/L (96-108); Creatinine Clr Calc Pharmacy 85.3; Estimated Glomerular Filt Rate 57; Glucose Random 128 mg/dL (60-115); Potassium 3.8 mmol/L (3.3-5.1); Sodium 143 mmol/L (135-145)
[2025-03-05] MEDS: Venlafaxine HCl ER 150 MG CAP.ER.24H 300 MG PO (08:57)
[2025-03-05] MEDS: Furosemide 20 MG TABLET PO (08:57)
[2025-03-05] MEDS: Gabapentin 300 MG CAPSULE PO ×2 (08:57→14:12)
[2025-03-05] MEDS: hydrOXYzine HCL 50 MG TABLET PO ×2 (08:57→19:59)
[2025-03-05] MEDS: lamoTRIgine 100 MG TABLET 200 MG PO ×2 (08:57→19:58)
[2025-03-05] MEDS: clonazePAM 0.5 MG TABLET PO ×2 (08:57→19:58)
[2025-03-05] MEDS: levETIRAcetam 1,000 MG TABLET 1000 MG PO ×2 (08:57→19:58)
[2025-03-05] MEDS: 0.9 % Sodium Chloride Flush 3 ML SYRINGE IVFLUSH ×2 (08:58→20:05)
[2025-03-05] MEDS: cloNIDine HCL 0.1 MG TABLET PO ×3 (08:58→19:58)
[2025-03-05] MEDS: Topiramate 25 MG TABLET PO (08:58)
[2025-03-05] MEDS: Enoxaparin Sodium 40 MG/0.4 ML SYRINGE SUBCUT (08:58)
[2025-03-05] MEDS: Losartan Potassium 25 MG TABLET PO (08:58)
[2025-03-05] MEDS: Atorvastatin Calcium 80 MG TABLET PO (08:58)
[2025-03-05 11:31] VITALS: BP 109/73; PULSE 90; RESP 16; TEMP 36.7; O2SAT 92
[2025-03-05 11:32] LABS: Glucose, Whole Blood 163 mg/dL (60-115)
[2025-03-05] MEDS: Insulin Lispro 100 UNIT/ML 3 ML VIAL SUBCUT (11:56)
--- NOTE | 2025-03-05 13:26 | MHC.CM.PN ---
CM & Care Team Worker/Carolyn spoke with /Sukhdeep over the phone @ [phone]; he will potato picker Patient tomorrow at 9:00AM and transport her to [facility] [phone] in [place] ([phone]); MD& RN have been made aware of the plan.
--- NOTE | 2025-03-05 13:32 | MHC.CARE ---
Patient accepted to [facility] spoke with Margarita @ [phone] @ [facility]. Patient accepted for 9:45 AM. Sukhdeep @ [phone] will pick her up and transfer her there with her medications including insulin and Keppra. ZORAN Dao notified and aware of discharge. ?
--- NOTE | 2025-03-05 13:53 | P.PNIM_ITS ---
Subjective Subjective Date of Service: 03/05/25 Interval History: depressed Physical Exam 2 Vital Signs: Vital Signs: Last Vital Signs Temp 98.1 F 03/05/25 11:31 Pulse 90 03/05/25 11:31 Resp 16 03/05/25 11:31 BP 109/73 03/05/25 11:31 Pulse Ox 92 03/05/25 11:31 O2 Del Method Room Air 03/05/25 11:31 O2 Flow Rate 2 03/04/25 04:33 BMI result Body Mass Index 37.7 General: AO X 3, no acute distress Resp: CTA bilateral, no accessory muscles used CVS: S1,S2,RRR GI: soft, non tender, non distended Neuro: motor grossly intact, alert Objective Data Active Medications Acetaminophen (Acetaminophen 325 Mg Tablet) 975 mg PO Q6H PRN PRN Reason: Pain, Mild 1-3,fever,headache Atorvastatin Calcium (Atorvastatin Calcium 80 Mg Tablet) 80 mg PO DAILY [facility] Last Admin: 03/05/25 08:58 Dose: 80 mg Documented By: MINGO Calcium Carbonate (Calcium Carbonate 750 Mg Tab.Chew) 750 mg PO Q4H PRN PRN Reason: Heartburn Clonazepam (Clonazepam 0.5 Mg Tablet) 0.5 mg PO BID [facility] Last Admin: 03/05/25 08:57 Dose: 0.5 mg Documented By: MINGO Clonidine HCl (Clonidine Hcl 0.1 Mg Tablet) 0.1 mg PO TID [facility]; Protocol Last Admin: 03/05/25 08:58 Dose: 0.1 mg Documented By: MINGO Cyclobenzaprine HCl (Cyclobenzaprine Hcl 10 Mg Tablet) 10 mg PO BID PRN PRN Reason: muscle spasm Last Admin: 03/04/25 21:45 Dose: 10 mg Documented By: GERTRUDIS Dextrose (Dextrose 50 % 25 Gm/50 Ml Syringe) 25 gm IVPUSH Q15M PRN; Protocol PRN Reason: per Hypoglycemia Standing Ord. Enoxaparin Sodium (Enoxaparin Sodium 40 Mg/0.4 Ml Syringe) 40 mg SUBCUT Q24H [facility] Last Admin: 03/05/25 08:58 Dose: 40 mg Documented By: MINGO Furosemide (Furosemide 20 Mg Tablet) 20 mg PO DAILY [facility]; Protocol Last Admin: 03/05/25 08:57 Dose: 20 mg Documented By: MINGO Gabapentin (Gabapentin 300 Mg Capsule) 300 mg PO BID@0900,1300 [facility] Last Admin: 03/05/25 08:57 Dose: 300 mg Documented By: MINGO Gabapentin (Gabapentin 400 Mg Capsule) 1,200 mg PO BEDTIME [facility] Last Admin: 03/04/25 21:07 Dose: 1,200 mg Documented By: GERTRUDIS Glucose (Glucose Gel 15 Gm Gel..Gram.) 15 gm PO Q15M PRN; Protocol PRN Reason: per Hypoglycemia Standing Ord. Hydroxyzine HCl (Hydroxyzine Hcl 50 Mg Tablet) 50 mg PO BID [facility] Last Admin: 03/05/25 08:57 Dose: 50 mg Documented By: MINGO Insulin Human Lispro (Insulin Lispro 100 Unit/Ml 3 Ml Vial) 0 unit SUBCUT QIDACHS [facility]; Protocol Last Admin: 03/05/25 11:56 Dose: 2 unit Documented By: MINGO Lamotrigine (Lamotrigine 100 Mg Tablet) 200 mg PO BID [facility] Last Admin: 03/05/25 08:57 Dose: 200 mg Documented By: MINGO Levetiracetam (Levetiracetam 1,000 Mg Tablet) 1,000 mg PO BID [facility] Last Admin: 03/05/25 08:57 Dose: 1,000 mg Documented By: MINGO Losartan Potassium (Losartan Potassium 25 Mg Tablet) 25 mg PO DAILY [facility]; Protocol Last Admin: 03/05/25 08:58 Dose: 25 mg Documented By: MINGO Magnesium Hydroxide (Milk Of Magnesia 30 Ml Oral.Susp) 30 ml PO DAILY PRN PRN Reason: Constipation Melatonin (Melatonin 3 Mg Tablet) 6 mg PO BEDTIME PRN PRN Reason: Insomnia Morphine Sulfate (Morphine Sulfate 4 Mg/Ml Cartridge) 2 mg IVPUSH Q4H PRN; Protocol PRN Reason: Pain, Severe (Pain Scale 7-10) Oxycodone HCl (Oxycodone Hcl Immed Release 5 Mg Tablet) 5 mg PO Q6H PRN PRN Reason: Pain, Moderate(Pain Scale 4-6) Last Admin: 03/04/25 16:48 Dose: 5 mg Documented By: RICKI Quetiapine Fumarate (Quetiapine Fumarate 400 Mg Tablet) 400 mg PO BEDTIME [facility] Last Admin: 03/04/25 21:07 Dose: 400 mg Documented By: GERTRUDIS Sodium Chloride (0.9 % Sodium Chloride Flush 3 Ml Syringe) 3 ml IVFLUSH QSHIFT [facility] Last Admin: 03/05/25 08:58 Dose: 3 ml Documented By: MINGO Topiramate (Topiramate 25 Mg Tablet) 25 mg PO DAILY [facility] Last Admin: 03/05/25 08:58 Dose: 25 mg Documented By: MINGO Topiramate (Topiramate 100 Mg Tablet) 100 mg PO BEDTIME [facility] Last Admin: 03/04/25 21:07 Dose: 100 mg Documented By: GERTRUDIS Venlafaxine HCl (Venlafaxine Hcl Er 150 Mg Cap.Er.24h) 300 mg PO DAILY [facility] Last Admin: 03/05/25 08:57 Dose: 300 mg Documented By: MINGO Labs 03/05/25 07:03 03/05/25 07:03 Labs: Laboratory Results - last 24 hr 03/04/25 03/04/25 03/05/25 15:42 19:59 07:03 MCV 86.3 MCH 28.3 MCHC 32.8 RDW 12.5 Plt Count 176 MPV 9.5 Absolute Nucleated RBC 0.000 Nucleated RBC % (auto) 0.0 Anion Gap 12 Estim Creat Clear Calc 85.3 Estimated GFR 57 POC Glucose 131 H 93 137 H Random Glucose 128 H Calcium 9.0 03/05/25 11:26 MCV MCH MCHC RDW Plt Count MPV Absolute Nucleated RBC Nucleated RBC % (auto) Anion Gap Estim Creat Clear Calc Estimated GFR POC Glucose 163 H Random Glucose Calcium Assessment and Plan (1) Psychogenic nonepileptic seizure: Status: Acute Plan 54F PMH epileptic and nonepileptic seizures, hypertension, hyperlipidemia, DM, obesity hypoventilation/ANETA presented with seizure-like Seizure-like episode Discussed with neurology likely nonepileptic, continue antiepileptics for history of epileptic seizure No need for EEG Mood disorder Plan for discharge to respite DM insulin aneta/ohs/obesity weight loss reason for continued hospitalization:dispo planning Quality Stroke Does the patient have a stroke diagnosis?: No VTE Prior VTE?: No VTE Risk Level:: Medical - moderate - high VTE Device Contraindication: Treatment Not Indicated VTE Drug Contraindication: N/A - Med Ordered
[2025-03-05 15:07] VITALS: BP 110/74; PULSE 92; RESP 18; TEMP 36.6; O2SAT 92
[2025-03-05 16:17] LABS: Glucose, Whole Blood 110 mg/dL (60-115)
[2025-03-05] MEDS: SUMAtriptan succinate 100 MG TABLET PO (17:49)
[2025-03-05 19:08] VITALS: BP 115/75; PULSE 74; RESP 18; TEMP 36.2; O2SAT 95
[2025-03-05] MEDS: Topiramate 100 MG TABLET PO (19:58)
[2025-03-05] MEDS: Gabapentin 400 MG CAPSULE 1200 MG PO (19:58)
[2025-03-05] MEDS: QUEtiapine Fumarate 400 MG TABLET PO (19:59)
[2025-03-05 20:47] LABS: Glucose, Whole Blood 123 mg/dL (60-115)
[2025-03-05 23:46] VITALS: BP 114/80; PULSE 80; RESP 18; O2SAT 93
[2025-03-06 03:23] VITALS: BP 127/90; PULSE 83; TEMP 36.6; O2SAT 94
[2025-03-06] MEDS: oxyCODONE HCl Immed Release 5 MG TABLET PO (03:28)
[2025-03-06 07:49] LABS: Hematocrit 45.6 % (37.0-47.0); Hemoglobin 14.8 g/dl (12.0-16.0); Mean Corpuscular HGB Conc 32.5 g/dl (31.0-35.0); Mean Corpuscular Hemoglobin 28.8 pg (27.0-33.0); Mean Corpuscular Volume 88.7 fL (80.0-98.0); Mean Platelet Volume 9.7 fL (9.4-12.3); Platelet Count 193 X10*3/uL (160-400); Red Blood Count 5.14 X10*6/uL (4.20-5.50); Red Cell Distribution Width 12.8 % (11.0-16.0); White Blood Count 7.4 X10*3/uL (4.8-10.8)
[2025-03-06 07:59] LABS: Anion Gap 12 (12-20); Blood Urea Nitrogen 20 mg/dL (9-16); Calcium 9.3 mg/dL (8.4-10.2); Carbon Dioxide 28 mmol/L (22-29); Chloride 108 mmol/L (96-108); Creatinine Clr Calc Pharmacy 74.8; Estimated Glomerular Filt Rate 49; Glucose Random 120 mg/dL (60-115); Potassium 4.7 mmol/L (3.3-5.1); Sodium 143 mmol/L (135-145)
[2025-03-06 08:00] VITALS: BP 110/77; PULSE 82; RESP 18; TEMP 36.7; O2SAT 94
[2025-03-06] MEDS: Venlafaxine HCl ER 150 MG CAP.ER.24H 300 MG PO (08:08)
[2025-03-06] MEDS: Atorvastatin Calcium 80 MG TABLET PO (08:08)
[2025-03-06] MEDS: clonazePAM 0.5 MG TABLET PO ×2 (08:08→20:31)
[2025-03-06] MEDS: lamoTRIgine 100 MG TABLET 200 MG PO ×2 (08:08→20:31)
[2025-03-06] MEDS: Enoxaparin Sodium 40 MG/0.4 ML SYRINGE SUBCUT (08:09)
[2025-03-06] MEDS: hydrOXYzine HCL 50 MG TABLET PO ×2 (08:09→20:31)
[2025-03-06] MEDS: Gabapentin 300 MG CAPSULE PO ×2 (08:09→12:47)
[2025-03-06] MEDS: Furosemide 20 MG TABLET PO (08:09)
[2025-03-06] MEDS: Losartan Potassium 25 MG TABLET PO (08:09)
[2025-03-06] MEDS: Topiramate 25 MG TABLET PO (08:09)
[2025-03-06] MEDS: levETIRAcetam 1,000 MG TABLET 1000 MG PO ×2 (08:09→20:31)
[2025-03-06] MEDS: cloNIDine HCL 0.1 MG TABLET PO ×3 (08:09→20:31)
[2025-03-06] MEDS: 0.9 % Sodium Chloride Flush 3 ML SYRINGE IVFLUSH ×3 (08:18→20:32)
[2025-03-06 08:23] LABS: Glucose, Whole Blood 110 mg/dL (60-115)
--- NOTE | 2025-03-06 10:01 | MHC.CM.PN ---
CM met with pt. and her , who was bedside because RN said that pt.'s DC is uncertain. Pt. informed CM that she does not want to go to the [facility], CM called and informed them at [phone]. Pt. said she is suicidal and would like to be inpt. in psych unit here, where there are doctors and nurses and they can change her medications, which she feels are not working for her. ZORAN informed MD, he said he will have CARE team re-eval.
--- NOTE | 2025-03-06 10:02 | PC.NURSE ---
Pt seen by case management this am re d/c plan. Per CM pateint and spouse refused dc to respite at this time and patient reports feelings of SI. Dr Courtney notified feels no need for 1:1 at this time, care team re consulted for plan.
[2025-03-06 12:00] VITALS: BP 115/76; PULSE 84; RESP 18; TEMP 36.9; O2SAT 92
[2025-03-06 12:23] LABS: Glucose, Whole Blood 107 mg/dL (60-115)
--- NOTE | 2025-03-06 13:56 | MHC.CARE ---
Care Team Sw made an attempt to meet with Patient for an MSU as patient was set to discharge to [facility] today. When Care team SW arrived, Pt was sitting in her bed and a nurse was helping due to an accident. Nurse asked Care Team Sw to wait a few minutes as PT's bed needed to be changed. Pt then proceeded to go use the bathroom and remained in there for 15 minutes before Care team was told to come back later.
[2025-03-06 15:32] VITALS: BP 104/59; PULSE 79; RESP 16; TEMP 36.6; O2SAT 93
[2025-03-06] MEDS: Cyclobenzaprine HCl 10 MG TABLET PO (16:08)
[2025-03-06] MEDS: Milk of Magnesia 30 ML ORAL.SUSP PO (16:09)
[2025-03-06] MEDS: Morphine Sulfate 4 MG/ML CARTRIDGE 2 MG IVPUSH (16:15)
[2025-03-06 16:18] LABS: Glucose, Whole Blood 112 mg/dL (60-115)
[2025-03-06 19:43] VITALS: BP 100/62; PULSE 78; RESP 16; TEMP 36; O2SAT 98
[2025-03-06] MEDS: Topiramate 100 MG TABLET PO (20:31)
[2025-03-06] MEDS: QUEtiapine Fumarate 400 MG TABLET PO (20:31)
[2025-03-06] MEDS: Gabapentin 400 MG CAPSULE 1200 MG PO (20:31)
[2025-03-06 20:42] LABS: Glucose, Whole Blood 127 mg/dL (60-115)
[2025-03-06 23:40] VITALS: BP 115/69; PULSE 83; RESP 18; TEMP 36.1; O2SAT 92
[2025-03-07 03:46] VITALS: BP 124/81; PULSE 82; RESP 18; TEMP 36.3; O2SAT 92
[2025-03-07] MEDS: Morphine Sulfate 4 MG/ML CARTRIDGE 2 MG IVPUSH (05:49)
[2025-03-07] MEDS: Cyclobenzaprine HCl 10 MG TABLET PO (05:50)
[2025-03-07 08:00] VITALS: BP 120/66; PULSE 86; RESP 18; TEMP 36.3; O2SAT 94
[2025-03-07 08:20] LABS: Glucose, Whole Blood 121 mg/dL (60-115)
--- NOTE | 2025-03-07 09:30 | HO.PM.IMPN ---
Subjective Subjective Date of Service: 03/07/25 Interval History: left 4th finger trigger finger Physical Exam Vital Signs: Vital Signs: Last Vital Signs Temp 97.4 F 03/07/25 08:00 Pulse 86 03/07/25 08:00 Resp 18 03/07/25 08:00 BP 120/66 03/07/25 08:00 Pulse Ox 94 03/07/25 08:00 O2 Del Method Room Air 03/07/25 08:00 O2 Flow Rate 2 03/04/25 04:33 BMI result Body Mass Index 37.7 General: AO X 3, no acute distress Resp: CTA bilateral, no accessory muscles used CVS: S1,S2,RRR GI: soft, non tender, non distended Neuro: motor grossly intact, alert Objective Data Active Medications Acetaminophen (Acetaminophen 325 Mg Tablet) 975 mg PO Q6H PRN PRN Reason: Pain, Mild 1-3,fever,headache Atorvastatin Calcium (Atorvastatin Calcium 80 Mg Tablet) 80 mg PO DAILY [facility] Last Admin: 03/06/25 08:08 Dose: 80 mg Documented By: AVIVA Calcium Carbonate (Calcium Carbonate 750 Mg Tab.Chew) 750 mg PO Q4H PRN PRN Reason: Heartburn Clonazepam (Clonazepam 0.5 Mg Tablet) 0.5 mg PO BID [facility] Last Admin: 03/06/25 20:31 Dose: 0.5 mg Documented By: FRANSISCO Clonidine HCl (Clonidine Hcl 0.1 Mg Tablet) 0.1 mg PO TID [facility]; Protocol Last Admin: 03/06/25 20:31 Dose: 0.1 mg Documented By: FRANSISCO Cyclobenzaprine HCl (Cyclobenzaprine Hcl 10 Mg Tablet) 10 mg PO BID PRN PRN Reason: muscle spasm Last Admin: 03/07/25 05:50 Dose: 10 mg Documented By: FRANSISCO Dextrose (Dextrose 50 % 25 Gm/50 Ml Syringe) 25 gm IVPUSH Q15M PRN; Protocol PRN Reason: per Hypoglycemia Standing Ord. Enoxaparin Sodium (Enoxaparin Sodium 40 Mg/0.4 Ml Syringe) 40 mg SUBCUT Q24H [facility] Last Admin: 03/06/25 08:09 Dose: 40 mg Documented By: AVIVA Furosemide (Furosemide 20 Mg Tablet) 20 mg PO DAILY [facility]; Protocol Last Admin: 03/06/25 08:09 Dose: 20 mg Documented By: AVIVA Gabapentin (Gabapentin 300 Mg Capsule) 300 mg PO BID@0900,1300 [facility] Last Admin: 03/06/25 12:47 Dose: 300 mg Documented By: JASON Gabapentin (Gabapentin 400 Mg Capsule) 1,200 mg PO BEDTIME [facility] Last Admin: 03/06/25 20:31 Dose: 1,200 mg Documented By: FRANSISCO Glucose (Glucose Gel 15 Gm Gel..Gram.) 15 gm PO Q15M PRN; Protocol PRN Reason: per Hypoglycemia Standing Ord. Hydroxyzine HCl (Hydroxyzine Hcl 50 Mg Tablet) 50 mg PO BID [facility] Last Admin: 03/06/25 20:31 Dose: 50 mg Documented By: RFANSISCO Insulin Human Lispro (Insulin Lispro 100 Unit/Ml 3 Ml Vial) 0 unit SUBCUT QIDAS [facility]; Protocol Last Admin: 03/07/25 08:44 Dose: Not Given Documented By: AVIVA Non-Admin Reason: No Access Lamotrigine (Lamotrigine 100 Mg Tablet) 200 mg PO BID [facility] Last Admin: 03/06/25 20:31 Dose: 200 mg Documented By: FRANSISCO Levetiracetam (Levetiracetam 1,000 Mg Tablet) 1,000 mg PO BID [facility] Last Admin: 03/06/25 20:31 Dose: 1,000 mg Documented By: FRANSISCO Losartan Potassium (Losartan Potassium 25 Mg Tablet) 25 mg PO DAILY [facility]; Protocol Last Admin: 03/06/25 08:09 Dose: 25 mg Documented By: AVIVA Magnesium Hydroxide (Milk Of Magnesia 30 Ml Oral.Susp) 30 ml PO DAILY PRN PRN Reason: Constipation Last Admin: 03/06/25 16:09 Dose: 30 ml Documented By: AVIVA Melatonin (Melatonin 3 Mg Tablet) 6 mg PO BEDTIME PRN PRN Reason: Insomnia Morphine Sulfate (Morphine Sulfate 4 Mg/Ml Cartridge) 2 mg IVPUSH Q4H PRN; Protocol PRN Reason: Pain, Severe (Pain Scale 7-10) Last Admin: 03/07/25 05:49 Dose: 2 mg Documented By: FRANSISCO Comments: Oxycodone HCl (Oxycodone Hcl Immed Release 5 Mg Tablet) 5 mg PO Q6H PRN PRN Reason: Pain, Moderate(Pain Scale 4-6) Last Admin: 03/06/25 03:28 Dose: 5 mg Documented By: FRANSISCO Quetiapine Fumarate (Quetiapine Fumarate 400 Mg Tablet) 400 mg PO BEDTIME [facility] Last Admin: 03/06/25 20:31 Dose: 400 mg Documented By: FRANSISCO Sodium Chloride (0.9 % Sodium Chloride Flush 3 Ml Syringe) 3 ml IVFLUSH QSHIFT [facility] Last Admin: 03/06/25 20:32 Dose: 3 ml Documented By: FRANSISCO Topiramate (Topiramate 25 Mg Tablet) 25 mg PO DAILY [facility] Last Admin: 03/06/25 08:09 Dose: 25 mg Documented By: AVIVA Topiramate (Topiramate 100 Mg Tablet) 100 mg PO BEDTIME [facility] Last Admin: 03/06/25 20:31 Dose: 100 mg Documented By: FRANSISCO Venlafaxine HCl (Venlafaxine Hcl Er 150 Mg Cap.Er.24h) 300 mg PO DAILY [facility] Last Admin: 03/06/25 08:08 Dose: 300 mg Documented By: AVIVA Labs 03/06/25 06:50 03/06/25 06:50 Labs: Laboratory Results - last 24 hr 03/06/25 03/06/25 03/06/25 12:19 16:12 20:38 POC Glucose 107 112 127 H 03/07/25 08:15 POC Glucose 121 H Assessment and Plan (1) Psychogenic nonepileptic seizure: Status: Acute Plan 54F PMH epileptic and nonepileptic seizures, hypertension, hyperlipidemia, DM, obesity hypoventilation/ANETA presented with seizure-like Seizure-like episode Discussed with neurology likely nonepileptic, continue antiepileptics for history of epileptic seizure No need for EEG Mood disorder refused respite, plan for psych eval, ?inpatient DM insulin aneta/ohs/obesity weight loss reason for continued hospitalization:dispo planning Quality Stroke Does the patient have a stroke diagnosis?: No VTE Prior VTE?: No VTE Risk Level:: Medical - moderate - high VTE Device Contraindication: Treatment Not Indicated VTE Drug Contraindication: N/A - Med Ordered
[2025-03-07] MEDS: Losartan Potassium 25 MG TABLET PO (09:56)
[2025-03-07] MEDS: Gabapentin 300 MG CAPSULE PO ×2 (09:56→15:58)
[2025-03-07] MEDS: clonazePAM 0.5 MG TABLET PO ×2 (09:56→20:00)
[2025-03-07] MEDS: lamoTRIgine 100 MG TABLET 200 MG PO ×2 (09:56→20:01)
[2025-03-07] MEDS: hydrOXYzine HCL 50 MG TABLET PO ×2 (09:57→20:00)
[2025-03-07] MEDS: Furosemide 20 MG TABLET PO (09:57)
[2025-03-07] MEDS: Atorvastatin Calcium 80 MG TABLET PO (09:57)
[2025-03-07] MEDS: Topiramate 25 MG TABLET PO (09:57)
[2025-03-07] MEDS: Venlafaxine HCl ER 150 MG CAP.ER.24H 300 MG PO (09:57)
[2025-03-07] MEDS: levETIRAcetam 1,000 MG TABLET 1000 MG PO ×2 (09:57→20:00)
[2025-03-07] MEDS: cloNIDine HCL 0.1 MG TABLET PO ×3 (09:57→20:01)
[2025-03-07] MEDS: Enoxaparin Sodium 40 MG/0.4 ML SYRINGE SUBCUT (09:57)
[2025-03-07] MEDS: 0.9 % Sodium Chloride Flush 3 ML SYRINGE IVFLUSH ×3 (09:58→20:04)
[2025-03-07 11:25] LABS: Glucose, Whole Blood 128 mg/dL (60-115)
[2025-03-07 12:00] VITALS: BP 104/57; PULSE 81; RESP 18; TEMP 36.2; O2SAT 97
--- NOTE | 2025-03-07 12:23 | MHC.CARE ---
Pt seen by CARE team and will be inpatient level of care, section 12 placed in chart however patient is voluntary for admission.
--- NOTE | 2025-03-07 12:45 | PC.NURSE ---
Addendum entered by Georgiana Hyman RN 03/07/25 16:06: pt reporting several seizures in the last few hours. pt continues to converse with this RN and other staff in complete sentences, no LOC or convulsions observed. pt stated she felt dizzy and lightheaded, drowsy yet conversing, asknig for whatever sweets the kitchen has to get her calories up. POC 95, VSS at this time. pt asking for medications to help with the seizures and maybe morphine with help MD notified. no new orders at this time. per MD treatment is inpatient psych awaiting bed search. pt requesting ice cream, crackers, jello. pt stated that she is thankful for the snacks and that she feels better after eating Original Note: pt rang call brandon stating she is currently having a seizure right now. pt was talking to RN with full sentences and eating lunch, appeared to be a bit drowsy. pt was litting still with no convulsions obsereved. Dr. Courtney notifed, no new orders at this time. pt is currently resting, pt is easily arousalable to name. states that this is what happens when i spell out and did the doctor say what he can give me for this
[2025-03-07 15:07] LABS: Glucose, Whole Blood 95 mg/dL (60-115)
[2025-03-07 15:54] VITALS: BP 108/62; PULSE 72; RESP 18; TEMP 36.3; O2SAT 98
[2025-03-07 16:31] LABS: Glucose, Whole Blood 137 mg/dL (60-115)
[2025-03-07 19:55] VITALS: BP 121/77; PULSE 74; RESP 18; TEMP 36.7; O2SAT 98
[2025-03-07] MEDS: Gabapentin 400 MG CAPSULE 1200 MG PO (20:00)
[2025-03-07] MEDS: Topiramate 100 MG TABLET PO (20:00)
[2025-03-07] MEDS: QUEtiapine Fumarate 400 MG TABLET PO (20:01)
[2025-03-07 20:08] LABS: Glucose, Whole Blood 113 mg/dL (60-115)
[2025-03-08 04:00] VITALS: BP 118/81; PULSE 78; RESP 16; TEMP 36.4; O2SAT 96
[2025-03-08] MEDS: Morphine Sulfate 4 MG/ML CARTRIDGE 2 MG IVPUSH (06:19)
[2025-03-08] MEDS: Cyclobenzaprine HCl 10 MG TABLET PO (06:20)
[2025-03-08 07:21] LABS: Glucose, Whole Blood 113 mg/dL (60-115)
[2025-03-08 07:22] VITALS: BP 95/55; PULSE 79; RESP 17; TEMP 36.2; O2SAT 91
[2025-03-08 08:14] VITALS: BP 104/60
--- NOTE | 2025-03-08 08:46 | P.PNIM_ITS ---
Subjective Subjective Date of Service: 03/08/25 Interval History: Complaining of neck pain, yesterday complaining of multiple episodes o seizure during these episodes patient was alert and oriented and no seizure-like activity Physical Exam 2 Vital Signs: Vital Signs: Last Vital Signs Temp 97.2 F 03/08/25 07:22 Pulse 79 03/08/25 07:22 Resp 17 03/08/25 07:22 BP 104/60 03/08/25 08:14 Pulse Ox 91 L 03/08/25 07:22 O2 Del Method Room Air 03/08/25 07:22 O2 Flow Rate 2 03/04/25 04:33 BMI result Body Mass Index 37.7 General: AO X 3, no acute distress Resp: CTA bilateral, no accessory muscles used CVS: S1,S2,RRR GI: soft, non tender, non distended Neuro: motor grossly intact, alert Objective Data Active Medications Acetaminophen (Acetaminophen 325 Mg Tablet) 975 mg PO Q6H PRN PRN Reason: Pain, Mild 1-3,fever,headache Atorvastatin Calcium (Atorvastatin Calcium 80 Mg Tablet) 80 mg PO DAILY [facility] Last Admin: 03/07/25 09:57 Dose: 80 mg Documented By: AVIVA Calcium Carbonate (Calcium Carbonate 750 Mg Tab.Chew) 750 mg PO Q4H PRN PRN Reason: Heartburn Clonazepam (Clonazepam 0.5 Mg Tablet) 0.5 mg PO BID [facility] Last Admin: 03/07/25 20:00 Dose: 0.5 mg Documented By: FRANSISCO Clonidine HCl (Clonidine Hcl 0.1 Mg Tablet) 0.1 mg PO TID [facility]; Protocol Last Admin: 03/07/25 20:01 Dose: 0.1 mg Documented By: FRANSISCO Cyclobenzaprine HCl (Cyclobenzaprine Hcl 10 Mg Tablet) 10 mg PO BID PRN PRN Reason: muscle spasm Last Admin: 03/08/25 06:20 Dose: 10 mg Documented By: FRANSISCO Dextrose (Dextrose 50 % 25 Gm/50 Ml Syringe) 25 gm IVPUSH Q15M PRN; Protocol PRN Reason: per Hypoglycemia Standing Ord. Enoxaparin Sodium (Enoxaparin Sodium 40 Mg/0.4 Ml Syringe) 40 mg SUBCUT Q24H [facility] Last Admin: 03/07/25 09:57 Dose: 40 mg Documented By: AVIVA Furosemide (Furosemide 20 Mg Tablet) 20 mg PO DAILY [facility]; Protocol Last Admin: 03/07/25 09:57 Dose: 20 mg Documented By: AVIVA Gabapentin (Gabapentin 300 Mg Capsule) 300 mg PO BID@0900,1300 [facility] Last Admin: 03/07/25 15:58 Dose: 300 mg Documented By: AVIVA Gabapentin (Gabapentin 400 Mg Capsule) 1,200 mg PO BEDTIME [facility] Last Admin: 03/07/25 20:00 Dose: 1,200 mg Documented By: FRANSISCO Glucose (Glucose Gel 15 Gm Gel..Gram.) 15 gm PO Q15M PRN; Protocol PRN Reason: per Hypoglycemia Standing Ord. Hydroxyzine HCl (Hydroxyzine Hcl 50 Mg Tablet) 50 mg PO BID [facility] Last Admin: 03/07/25 20:00 Dose: 50 mg Documented By: FRANSISCO Insulin Human Lispro (Insulin Lispro 100 Unit/Ml 3 Ml Vial) 0 unit SUBCUT QIDACHS [facility]; Protocol Last Admin: 03/08/25 07:31 Dose: Not Given Documented By: AVIVA Non-Admin Reason: No Insulin Coverage Lamotrigine (Lamotrigine 100 Mg Tablet) 200 mg PO BID [facility] Last Admin: 03/07/25 20:01 Dose: 200 mg Documented By: FRANSISCO Levetiracetam (Levetiracetam 1,000 Mg Tablet) 1,000 mg PO BID [facility] Last Admin: 03/07/25 20:00 Dose: 1,000 mg Documented By: FRANSISCO Losartan Potassium (Losartan Potassium 25 Mg Tablet) 25 mg PO DAILY [facility]; Protocol Last Admin: 03/07/25 09:56 Dose: 25 mg Documented By: AVIVA Magnesium Hydroxide (Milk Of Magnesia 30 Ml Oral.Susp) 30 ml PO DAILY PRN PRN Reason: Constipation Last Admin: 03/06/25 16:09 Dose: 30 ml Documented By: AVIVA Melatonin (Melatonin 3 Mg Tablet) 6 mg PO BEDTIME PRN PRN Reason: Insomnia Morphine Sulfate (Morphine Sulfate 4 Mg/Ml Cartridge) 2 mg IVPUSH Q4H PRN; Protocol PRN Reason: Pain, Severe (Pain Scale 7-10) Last Admin: 03/08/25 06:19 Dose: 2 mg Documented By: FRANSISCO Comments: Oxycodone HCl (Oxycodone Hcl Immed Release 5 Mg Tablet) 5 mg PO Q6H PRN PRN Reason: Pain, Moderate(Pain Scale 4-6) Last Admin: 03/06/25 03:28 Dose: 5 mg Documented By: FRANSISCO Quetiapine Fumarate (Quetiapine Fumarate 400 Mg Tablet) 400 mg PO BEDTIME [facility] Last Admin: 03/07/25 20:01 Dose: 400 mg Documented By: FRANSISCO Sodium Chloride (0.9 % Sodium Chloride Flush 3 Ml Syringe) 3 ml IVFLUSH QSHIFT [facility] Last Admin: 03/07/25 20:04 Dose: 3 ml Documented By: FRANSISCO Topiramate (Topiramate 25 Mg Tablet) 25 mg PO DAILY [facility] Last Admin: 03/07/25 09:57 Dose: 25 mg Documented By: AVIVA Topiramate (Topiramate 100 Mg Tablet) 100 mg PO BEDTIME [facility] Last Admin: 03/07/25 20:00 Dose: 100 mg Documented By: FRANSISCO Venlafaxine HCl (Venlafaxine Hcl Er 150 Mg Cap.Er.24h) 300 mg PO DAILY [facility] Last Admin: 03/07/25 09:57 Dose: 300 mg Documented By: AVIVA Labs 03/06/25 06:50 03/06/25 06:50 Labs: Laboratory Results - last 24 hr 03/07/25 03/07/25 03/07/25 11:15 15:02 16:21 POC Glucose 128 H 95 137 H 03/07/25 03/08/25 20:01 07:16 POC Glucose 113 113 Assessment and Plan (1) Psychogenic nonepileptic seizure: Status: Acute Plan 54F PMH epileptic and nonepileptic seizures, hypertension, hyperlipidemia, DM, obesity hypoventilation/CONY presented with seizure-like Seizure-like episode Discussed with neurology likely nonepileptic, continue antiepileptics for history of epileptic seizure No need for EEG self Reporting of new seizures are nonepileptic Mood disorder Care team appreciated plan for inpatient psychiatric admission DM insulin cony/ohs/obesity weight loss reason for continued hospitalization: Awaiting for inpatient psychiatric bed Quality Stroke Does the patient have a stroke diagnosis?: No VTE Prior VTE?: No VTE Risk Level:: Medical - moderate - high VTE Device Contraindication: Treatment Not Indicated VTE Drug Contraindication: N/A - Med Ordered
[2025-03-08] MEDS: cloNIDine HCL 0.1 MG TABLET PO (09:01)
[2025-03-08] MEDS: hydrOXYzine HCL 50 MG TABLET PO (09:01)
[2025-03-08] MEDS: lamoTRIgine 100 MG TABLET 200 MG PO (09:01)
[2025-03-08] MEDS: Topiramate 25 MG TABLET PO (09:01)
[2025-03-08] MEDS: Atorvastatin Calcium 80 MG TABLET PO (09:01)
[2025-03-08] MEDS: Venlafaxine HCl ER 150 MG CAP.ER.24H 300 MG PO (09:01)
[2025-03-08] MEDS: Furosemide 20 MG TABLET PO (09:01)
[2025-03-08] MEDS: 0.9 % Sodium Chloride Flush 3 ML SYRINGE IVFLUSH (09:02)
[2025-03-08] MEDS: levETIRAcetam 1,000 MG TABLET 1000 MG PO (09:02)
[2025-03-08] MEDS: clonazePAM 0.5 MG TABLET PO (09:02)
[2025-03-08] MEDS: Gabapentin 300 MG CAPSULE PO ×2 (09:02→12:24)
[2025-03-08] MEDS: Losartan Potassium 25 MG TABLET PO (09:02)
[2025-03-08] MEDS: Enoxaparin Sodium 40 MG/0.4 ML SYRINGE SUBCUT (09:02)
[2025-03-08 11:09] VITALS: BP 119/81; PULSE 80; RESP 17; TEMP 36.7; O2SAT 91
[2025-03-08 11:36] LABS: Glucose, Whole Blood 109 mg/dL (60-115)
[2025-03-08] MEDS: oxyCODONE HCl Immed Release 5 MG TABLET PO (12:23)
[2025-03-08] MEDS: Acetaminophen 325 MG TABLET 975 MG PO (12:26)
== END 2025-03-08 14:36 | DRG 101 ==
LOC: HO.ED 03-04 00:27 → HO.EDOVER 03-04 05:58 → HO.IMC 03-04 07:52
PROVIDERS: Admitting Provider Physician Assistant; Emergency Provider Emergency Medicine; PCP Family Medicine; Visit Provider Internal Medicine
DX: R56.9 Unspecified convulsions (principal); E66.2 Morbid (severe) obesity with alveolar hypoventilation; E11.9 Type 2 diabetes mellitus without complications; E78.5 Hyperlipidemia, unspecified; I10 Essential (primary) hypertension; F43.10 Post-traumatic stress disorder, unspecified; Z68.37 Body mass index [BMI] 37.0-37.9, adult; Z71.3 Dietary counseling and surveillance; Z20.822 Contact with and (suspected) exposure to COVID-19; Z79.899 Other long term (current) drug therapy
CPT/HCPCS: 0241U; 36415; 70450; 71045; 71250; 72114; 80048; 80076; 80307; 82803; 82947; 83036; 83605; 83735; 83880; 84484; 85025; 85027; 85379; 85610; 86140; 93005; 99212; 99285; J1650; J1953; J2060; J2250; J2270; J7120; S9485

== ENCOUNTER → 2025-03-03 16:33 | Outpatient (BNV) | payer MEDICARE, SELFPAY | PROVIDERS: Emergency Provider Emergency Medicine; Visit Provider Radiology Diagnostic Radiology | DX: M54.50 Low back pain, unspecified (principal) | CPT/HCPCS: 70450; 71045; 72114 ==

== ENCOUNTER → 2025-03-03 16:34 | Outpatient (BNV) | payer MEDICARE, SELFPAY | PROVIDERS: Admitting Provider Physician Assistant; Emergency Provider Emergency Medicine; Visit Provider Internal Medicine Cardiovascular Disease | DX: R94.31 Abnormal electrocardiogram [ECG] [EKG] (principal); Z13.6 Encounter for screening for cardiovascular disorders | CPT/HCPCS: 93010 ==

== ENCOUNTER 2025-03-04 05:40 | Outpatient (BNV) | payer MEDICARE, SELFPAY | END 2025-03-04 11:13 | PROVIDERS: Admitting Provider Physician Assistant; Emergency Provider Emergency Medicine; Visit Provider Nuclear Medicine | DX: R91.8 Other nonspecific abnormal finding of lung field (principal) | CPT/HCPCS: 71250 ==

== ENCOUNTER → 2025-03-04 05:40 | Outpatient (BNV) | payer MEDICARE, SELFPAY | PROVIDERS: Admitting Provider Physician Assistant; Emergency Provider Emergency Medicine; Visit Provider Psychiatry & Neurology Neurology | DX: R56.9 Unspecified convulsions (principal) | CPT/HCPCS: 99222 ==

== ENCOUNTER → 2025-03-04 05:40 | Outpatient (BNV) | payer MEDICARE, SELFPAY | PROVIDERS: Admitting Provider Physician Assistant; Emergency Provider Emergency Medicine; Visit Provider Internal Medicine | DX: F44.5 Conversion disorder with seizures or convulsions (principal); E66.9 Obesity, unspecified | CPT/HCPCS: 99223; 99232 ==

== ENCOUNTER 2025-03-08 14:42 | Outpatient (BNV) | payer MEDICARE, SELFPAY | END 2025-03-08 16:42 | PROVIDERS: Admitting Provider Social Worker; Visit Provider Radiology Diagnostic Radiology | DX: R56.9 Unspecified convulsions (principal); R91.8 Other nonspecific abnormal finding of lung field | CPT/HCPCS: 70450; 71045; 72125 ==

== ENCOUNTER 2025-03-08 14:42 | Inpatient (IN) | payer MEDICARE, SELFPAY ==
--- NOTE | ~2025-03-08 | CT_ITS ---
CLINICAL HISTORY: fall CT of the head without contrast. Comparison 03/03/2025. Findings: No acute hemorrhage or infarct is seen. No masses are identified and there is no hydrocephalus. There is no mass-effect. Impression: No acute intracranial abnormality is identified. This document has been electronically signed by: True Palma MD on 03/08/2025 17:44:59
--- NOTE | ~2025-03-08 | CT_ITS ---
CLINICAL HISTORY: unwintnessed fall CT of the cervical spine without contrast. No comparison. Findings: No acute fractures are seen. There is no significant malalignment. There are moderate degenerative changes. Impression: No acute fractures. This document has been electronically signed by: True Palma MD on 03/08/2025 17:44:18
[2025-03-08 15:41] VITALS: BP 109/70; PULSE 80; TEMP 36.4; O2SAT 94
[2025-03-08 16:37] LABS: Glucose, Whole Blood 94 mg/dL (60-115)
--- OUTSIDE RECORDS SUMMARY | 2025-03-08 17:14 | XMS_ITS | Clinical Summary ---
Author Organization [facility] Address [address] [place] [address] Care Team Providers Care Engineering Aide Name Role Phone Rashmi Alfaro MD Primary Care Provider [phone] Encounters Date Type Department Care Team Description 02/25/2025 1:15 PM EDT - 02/25/2025 11:59 PM EDT [facility] [address] [address] Encounter for screening mammogram for malignant neoplasm of breast Discharge Disposition: Home or Self Care from Last 3 Months Surgical History Surgery Date Site/Laterality Comments OTHER SURGICAL HISTORY 01/1109 PROCEDURE: [place] SIGMOIDOSCOPY FLX W/BIOPSY SINGLE/MULTIPLE; COMMENT: Up to descending colon, mild colitis at distal sigmoid-bx: Normal, hemorrhoids HEMORRHOID SURGERY PROCEDURE: DESTRUCTION OF HEMORRHOIDS Medical History Medical History Date Comments Seizures (CMS/HCC V24, CMS/HCC V28) DX:Seizures (HCC) PTSD (post-traumatic stress disorder) DX:PTSD (post-traumatic stress [...] (Season Ended) 2025 Breast Cancer Screening 02/25/2027 02/26/20, 12/12/2021, 07/24/2019 DTaP,Tdap,and Td Vaccines (2 - [...] year. Mammo Location: [facility] at [facility], [address] [place] [address], [facility], . -------- FINAL REPORT -------- Dictated By: Zena Barron Dictated Date: 02/25/2025 15:56 ET Assigned Physician: Zena Barron Reviewed and Electronically Signed By: Zena Barron Signed Date: 02/25/2025 16:03 ET Workstation ID: [id number] Transcribed By: Self Edit Transcribed Date: 02/25/2025 [...] year. Mammo Location: [facility], [address] [place] [address], [address], . -------- FINAL REPORT -------- Dictated By: Zena Barron Dictated Date: 02/25/2025 15:56 ET Assigned Physician: Zena Barron Reviewed and Electronically Signed By: Zena Barron Signed Date: 02/25/2025 16:03 ET Workstation ID: [id number] Transcribed By: Self Edit Transcribed Date: 02/25/2025 15:56 ET us Rashmi Alfaro MD IMG BI PROCEDURES Final Res ult from Last 3 Months Insurance [employer] MED[employer]ARE [employer]VANTAGE Care Teams Engineering Aide Relationship Specialty Start Date End Date Rashmi Alfaro MD [address] [place] [address] PCP - General 03/06/23
--- NOTE | 2025-03-08 22:37 | HO.PSYADMNOT ---
HPI Date of Service: 03/08/25 Chief Complaint: SI Sources of Information: patient interviewed and chart reviewed HPI Narrative: The patient was seen briefly in evaluation had discussed history of depression seeing thoughts of self-harm history of seizures and question recent admission for she is a like activity versus pseudoseizures full evaluation unable to be completed patient had syncopal episode patient was on clonazepam gabapentin Lamictal quetiapine. Past Psychiatric History: History of recurrent depression full evaluation not completed Medical Evaluation Reviewed: Yes Patient had syncopal episode shortly after arrival to unit [facility] Medical History (Updated 03/22/25 @ 12:42 by Richard Portillo MD) Psychogenic nonepileptic seizure Seizure-like activity Type 2 diabetes mellitus without complications Obesity (BMI 30.0-34.9) Restrictive lung disease Nocturnal hypoxemia Morbid obesity Migraine Surgical History No pertinent past surgical history Diagnostics Vital Signs (24Hr): Vital Signs - 24 hr 03/08/25 15:41 Temperature 97.6 F Pulse Rate 80 Blood Pressure 109/70 Pulse Oximetry 94 Oxygen Delivery Method Room Air Labs Labs: Laboratory Results - last 48 hr 03/08/25 16:32 POC Glucose 94 Meds/Allergies Meds Home Medications ?Medication ?Instructions ?Recorded ?Confirmed ?Type meloxicam 15 mg tablet 15 mg PO DAILY PRN Pain 10/08/22 03/11/25 History nystatin 100,000 unit/gram topical 1 appl topical BID 06/30/24 03/11/25 History powder cholecalciferol (vitamin D3) 25 25 mcg PO DAILY 03/04/25 03/11/25 History mcg (1,000 unit) tablet (Vitamin D3) vitamin B complex 1 tab PO DAILY 03/04/25 03/11/25 History Allergies Allergies Allergy/AdvReac Type Severity Reaction Status Date / Time adhesive tape Allergy Unknown Unknown Verified 03/03/25 16:26 amoxicillin [From Augmentin] AdvReac Severe colitis Verified 03/03/25 15:09 clavulanic acid AdvReac Severe colitis Verified 03/03/25 15:09 [From Augmentin] Mental Status Exam Mental Status Exam Narrative: Patient was alert somewhat lethargic speech somewhat slurred difficult to understand patient described her mood as depressed not having a life problems with seizures and non epileptic seizures. Discussed vague thoughts of suicide without clear plan thoughts at times she would be better off shortly thereafter had syncopal episode Assessment & Plan Assessment & Plan (1) MDD (major depressive disorder), recurrent episode, moderate: Status: Acute Code(s): F33.1 - Major depressive disorder, recurrent, moderate (2) Mood disorder as late effect of traumatic brain injury: Status: Acute Code(s): F06.30 - Mood disorder due to known physiological condition, unspecified; S06.9XAS - Unspecified intracranial injury with loss of consciousness status unknown, sequela (3) Psychogenic nonepileptic seizure: Status: Acute Code(s): F44.5 - Conversion disorder with seizures or convulsions (4) Seizure disorder: Status: Acute Code(s): G40.909 - Epilepsy, unspecified, not intractable, without status epilepticus Plan Patient had syncopal episode during evaluation rapid response called case had been reviewed with Internal Medicine prior to transfer Medications at discharge from medical floor were to be can continued however patient was transferred back fairly quickly Patient educated on: diagnosis and medical condition Informed Consent: further education needed Reason for continued inpatient stay Substantial Risk for: harm to self and med/psych decompensation Statement Statement: I have reviewed the history and physical and performed a pertinent examination on my patient. No changes have occurred unless specified. If the History and Physical was not performed prior to admission, the Hospitalist's service will be consulted for completing the admission physical. Time Spent With Patient Time: Total time managing care of this patient today _35___ minutes.
--- NOTE | 2025-03-08 22:38 | P.DS_ITS ---
DS: Providers Provider Date of Service: 03/08/25 Date of admission: 03/08/25 14:42 Date of discharge: 03/08/25 Primary care physician: Unknown Physician Admitting clinician: Richard Portillo Attending physician on admission: Richard Portillo Attending physician on discharge: Richard Portillo Discharging clinician: Richard Portillo DS: Medications Discharge Medications Home Medications: Home Medications ?Medication ?Instructions ?Recorded ?Confirmed acetaminophen 325 mg capsule 325 mg PO QID PRN Pain 02/06/22 03/08/25 (Tylenol) meloxicam 15 mg tablet 15 mg PO DAILY PRN Pain 10/08/22 03/08/25 nystatin 100,000 unit/gram topical 1 appl topical BID 06/30/24 03/08/25 powder cholecalciferol (vitamin D3) 25 25 mcg PO DAILY 03/04/25 03/08/25 mcg (1,000 unit) tablet (Vitamin D3) vitamin B complex 1 tab PO DAILY 03/04/25 03/08/25 Previous Rx's ?Medication ?Instructions ?Recorded albuterol sulfate 90 mcg/actuation 2 puff inhalation Q6H PRN 03/05/25 aerosol inhaler cough/bronchospasm #8.5 grams clonazepam 0.5 mg tablet 0.5 mg PO BID #60 tabs 03/05/25 clonidine HCl 0.1 mg tablet 0.1 mg PO TID #30 tabs 03/05/25 cyclobenzaprine 10 mg tablet 10 mg PO BID PRN muscle spasm 30 03/05/25 days #60 tabs docusate sodium 50 mg capsule 50 mg PO DAILY #30 caps 03/05/25 furosemide 20 mg tablet 20 mg PO DAILY #30 tabs 03/05/25 gabapentin 300 mg capsule 1,200 mg (4 x 300 mg) PO BEDTIME 03/05/25 #120 caps gabapentin 300 mg capsule 300 mg PO BID@0900,1300 #60 caps 03/05/25 hydroxyzine HCl 50 mg tablet 50 mg PO BID #90 tabs 03/05/25 lamotrigine 200 mg tablet 200 mg PO BID #60 tabs 03/05/25 losartan 25 mg tablet 25 mg PO DAILY #30 tabs 03/05/25 polyethylene glycol 3350 17 17 g PO DAILY #30 grams 03/05/25 gram/dose oral powder (Miralax) quetiapine 400 mg tablet (Seroquel) 400 mg PO BEDTIME #30 tabs 03/05/25 rosuvastatin 20 mg tablet 20 mg PO DAILY #30 tabs 03/05/25 sumatriptan succinate 100 mg 100 mg PO DAILY PRN Migraine 03/05/25 tablet (Imitrex) Headache #30 tabs topiramate 100 mg tablet 100 mg PO BEDTIME #30 tabs 03/05/25 topiramate 25 mg tablet 25 mg PO DAILY #30 tabs 03/05/25 tramadol 50 mg tablet 50 mg PO Q6H PRN Pain #120 tabs 03/05/25 venlafaxine 150 mg 300 mg (2 x 150 mg) PO DAILY #60 03/05/25 capsule,extended release 24 hr caps (Effexor XR) Mental Status Exam Mental Status Exam Narrative: Patient obtunded nonverbal respirations noted Data Data Completed and Pending Completed studies during hospitalization [Text1]: 03/08/25 16:32 POC Glucose 94 DS: Summary Hospital Course Hospital Course: Patient was transferred from the medical floor on 03/08/25 was felt medically stable nonepileptic seizures restrictive lung disease diabetes history of brain injury questionable history of seizures besides non epileptic seizure depression thoughts of self-harm nocturnal hypoxia. Patient shortly after transfer before full evaluation could be completed the patient had a syncopal episode and was transferred back to medical floor. She was not responsive for a period of time and noted to be hypoxic in the 80s. After rapid response the patient was transferred back to the service of Dr. Mendoza Status at Discharge Cognitive/behavioral status at discharge: Patient obtunded Functional status at discharge: bed bound Overall status at discharge: patient is not back to baseline Time Spent with Patient Time attestation: Total time managing care of this patient today 45____ minutes. Time spent: Greater than 30 minutes Specific discharge activities: Rapid response evaluation discussion with Medical Service Discharge Plan Discharge Anticipated Discharge Date/Time: 03/08/25 16:49 Patient Disposition: Xfer Acute Care Hospital Discharge Diagnosis: Syncopal episode Question seizure versus psychogenic seizure Question other cardiac or pulmonary event Mood disorder status post brain injury Seizure disorder Nonepileptic seizure disorder Restrictive lung disease Referrals: Physician,Unknown J [Primary Care Provider] - 1 Week Discharge Medications: No Action cholecalciferol (vitamin D3) [Vitamin D3] 25 mcg (1,000 unit) Tablet 25 mcg PO DAILY vitamin B complex Tablet 1 tab PO DAILY sumatriptan succinate [Imitrex] 100 mg tablet 100 mg PO DAILY PRN (Reason: Migraine Headache) Qty: 30 0RF clonazepam 0.5 mg tablet 0.5 mg PO BID Qty: 60 0RF venlafaxine [Effexor XR] 150 mg capsule,extended release 24hr 300 mg PO DAILY Qty: 60 0RF topiramate 25 mg Tablet 25 mg PO DAILY Qty: 30 0RF hydroxyzine HCl 50 mg tablet 50 mg PO BID Qty: 90 0RF tramadol 50 mg tablet 50 mg PO Q6H PRN (Reason: Pain) Qty: 120 0RF gabapentin 300 mg Capsule 300 mg PO BID@0900,1300 Qty: 60 0RF gabapentin 300 mg Capsule 1,200 mg PO BEDTIME Qty: 120 0RF polyethylene glycol 3350 [Miralax] 17 gram/dose Powder 17 g PO DAILY Qty: 30 0RF topiramate 100 mg tablet 100 mg PO BEDTIME Qty: 30 0RF cyclobenzaprine 10 mg Tablet 10 mg PO BID PRN (Reason: muscle spasm) Qty: 60 0RF atorvastatin 80 mg Tablet 80 mg PO DAILY Qty: 30 0RF clonidine HCl 0.1 mg Tablet 0.1 mg PO TID Qty: 90 0RF Protocol: Hold for SBP< HOLD for SBP < : 90 ipratropium-albuterol 0.5 mg-3 mg(2.5 mg base)/3 mL Solution For Nebulization 3 ml inhalation RQ4H WHILE AWAKE PRN (Reason: sob) Qty: 90 0RF losartan 25 mg Tablet 25 mg PO DAILY Qty: 30 0RF Protocol: Hold for SBP< HOLD for SBP < : 90 albuterol sulfate [Ventolin HFA] 90 mcg/actuation Hfa Aerosol Inhaler 2 puff inhalation Q6H PRN (Reason: cough/bronchospasm) Qty: 6.7 0RF lamotrigine 200 mg tablet 200 mg PO BID Qty: 60 0RF quetiapine 400 mg Tablet 400 mg PO BEDTIME Qty: 30 0RF guaifenesin [Mucinex] 600 mg Tablet Extended Release 12hr 600 mg PO BID Qty: 60 0RF furosemide 20 mg tablet 40 mg PO DAILY Qty: 60 0RF meloxicam 15 mg tablet 15 mg PO DAILY PRN (Reason: Pain) nystatin 100,000 unit/gram powder 1 appl topical BID Discharge Orders: Discharge Order (Routine); Ordered 03/08/25 Ordered By: Luis Courtney Diet: Per medical floor Activity on Discharge: Per medical floor Stand Alone Forms: Patient Portal Discharge page Print Language: Lithuanian Care Plan Goals: stabilize medically s/p syncopal episode Health Concerns: syncope seizure dx psychogenic sz depression ? si Plan of Treatment: transfer med floor Assessment: pt obtunded non verbal Discharge Date/Time: 03/08/25 16:45
== END 2025-03-08 16:45 | disposition short-term general hospital (02) | DRG 885 ==
PROVIDERS: Admitting Provider Social Worker; Visit Provider Psychiatry & Neurology Psychiatry
DX: F33.1 Major depressive disorder, recurrent, moderate (principal); R45.851 Suicidal ideations; E11.9 Type 2 diabetes mellitus without complications; F06.30 Mood disorder due to known physiological condition, unspecified; S06.9XAS Unspecified intracranial injury with loss of consciousness status unknown, sequela; F44.5 Conversion disorder with seizures or convulsions; G40.909 Epilepsy, unspecified, not intractable, without status epilepticus; Z79.899 Other long term (current) drug therapy
CPT/HCPCS: 70450; 72125; 82947

== ENCOUNTER → 2025-03-08 14:42 | Outpatient (BNV) | payer MEDICARE, SELFPAY | PROVIDERS: Admitting Provider Social Worker; Visit Provider Psychiatry & Neurology Psychiatry | DX: F33.1 Major depressive disorder, recurrent, moderate (principal); F06.30 Mood disorder due to known physiological condition, unspecified; S06.9XAS Unspecified intracranial injury with loss of consciousness status unknown, sequela; F44.5 Conversion disorder with seizures or convulsions; G40.909 Epilepsy, unspecified, not intractable, without status epilepticus | CPT/HCPCS: 90792; 99499 ==

== ENCOUNTER 2025-03-08 16:55 | Inpatient (IN) | payer MEDICARE, SELFPAY ==
--- NOTE | ~2025-03-08 | XR_ITS ---
CLINICAL HISTORY: hypoxia --- Additional Notes or Special Instructions: bed 459 Single view of the chest. Comparison 03/03/2025. Findings: Body habitus limits the study. The heart is enlarged. No definite pleural effusion is seen. Impression: There is atelectasis or mild consolidation in the right lower lung. Pneumonia is a possibility. In addition there is diffuse bronchial wall thickening bilaterally. Infection and edema are possibilities. This document has been electronically signed by: True Palma MD on 03/08/2025 18:29:34
--- NOTE | ~2025-03-08 | XR_ITS ---
EXAMINATION: XR HIP, LEFT CLINICAL INFORMATION: pain COMPARISON: None available. TECHNIQUE: AP pelvis and Two views of the left hip. FINDINGS: No fracture, dislocation, or suspicious bone lesion. Normal alignment of the hip joints. Mild symmetric degenerative arthritis in both hip joints with mild superolateral osteophytic lipping of the acetabula. There is normal acetabular coverage. There is normal femoral head contour without evidence of AVN. Soft tissues demonstrate no abnormalities. XR/XR hip LT w [id number] IMPRESSION: No acute bony abnormalities. Mild degenerative arthritis bilateral hip joints. Electronically signed by: Bishop Aguirre MD 03/09/2025 04:59 PM EDT
--- NOTE | 2025-03-08 16:57 | P.HPHOSP_ITS ---
History of Present Illness Date of Service: 03/08/25 Chief Complaint: seizure 54F PMH epileptic and nonepileptic seizures, hypertension, hyperlipidemia, diabetes, obesity hypoventilation/ANETA, mood disorder, [place] [facility] [place] for seizure-like activity. Was seen by Neurology who felt this was likely nonepileptic seizure and recommended counseling. Was continued antiepileptics, due to concern over comments if suicidal ideation patient was admitted to [facility]. After 2 hours on [facility] patient was found to be on the ground after unwitnessed fall. Patient was able to verbalize that she was having a seizure patient noted to be hypoxic to high 80s on room air. Transferred back to Medicine for observation. Review of Systems Review of Systems: Yes all other systems are reviewed and are negative [facility] Medical History Type 2 diabetes mellitus without complications Obesity (BMI 30.0-34.9) Restrictive lung disease Nocturnal hypoxemia Morbid obesity Migraine Psychogenic nonepileptic seizure Family History Father Cancer Paternal Aunt Cancer Surgical History No pertinent past surgical history Social History Household Members: Spouse Housing: House Alcohol intake: never Patient Tobacco Use Status: Never used Tobacco Second Hand Smoke Exposure: No service: No Meds Allergies Allergy/AdvReac Type Severity Reaction Status Date / Time adhesive tape Allergy Unknown Unknown Verified 03/03/25 16:26 amoxicillin [From Augmentin] AdvReac Severe colitis Verified 03/03/25 15:09 clavulanic acid AdvReac Severe colitis Verified 03/03/25 15:09 [From Augmentin] Active Medications: Current Medications Acetaminophen (Acetaminophen 325 Mg Tablet) 650 mg PO Q6H PRN PRN Reason: Pain, Mild 1-3,fever,headache Calcium Carbonate (Calcium Carbonate 750 Mg Tab.Chew) 750 mg PO Q4H PRN PRN Reason: Heartburn Dextrose (Dextrose 50 % 25 Gm/50 Ml Syringe) 25 gm IVPUSH Q15M PRN; Protocol PRN Reason: per Hypoglycemia Standing Ord. Enoxaparin Sodium (Enoxaparin Sodium 40 Mg/0.4 Ml Syringe) 40 mg SUBCUT Q24H [facility] Glucose (Glucose Gel 15 Gm Gel..Gram.) 15 gm PO Q15M PRN; Protocol PRN Reason: per Hypoglycemia Standing Ord. Insulin Human Lispro (Insulin Lispro 100 Unit/Ml 3 Ml Vial) 0 unit SUBCUT QIDACHS [facility]; Protocol Magnesium Hydroxide (Milk Of Magnesia 30 Ml Oral.Susp) 30 ml PO DAILY PRN PRN Reason: Constipation Melatonin (Melatonin 3 Mg Tablet) 6 mg PO BEDTIME PRN PRN Reason: Insomnia Sodium Chloride (0.9 % Sodium Chloride Flush 3 Ml Syringe) 3 ml IVFLUSH QSHIFT [facility] Home Medications ?Medication ?Instructions ?Recorded ?Confirmed ?Last Taken ?Type acetaminophen 325 mg capsule 325 mg PO QID PRN Pain 02/06/22 03/08/25 03/03/25 History (Tylenol) meloxicam 15 mg tablet 15 mg PO DAILY PRN Pain 10/08/22 03/08/25 03/03/25 History nystatin 100,000 unit/gram topical 1 appl topical BID 06/30/24 03/08/25 03/03/25 History powder cholecalciferol (vitamin D3) 25 25 mcg PO DAILY 03/04/25 03/08/25 03/03/25 History mcg (1,000 unit) tablet (Vitamin D3) vitamin B complex 1 tab PO DAILY 03/04/25 03/08/25 03/03/25 History Physical Exam Vital Signs and Narrative: Patient is non participatory with exam, pupils are equal and reactive, she is able to verbalize that she was ?having seizure lungs diminished. Assessment and Plan (1) Psychogenic nonepileptic seizure: Status: Acute Plan 54F PMH epileptic and nonepileptic seizures, hypertension, hyperlipidemia, diabetes, obesity hypoventilation/ANETA, mood disorder, was [place] [facility] [place] 03/08/2025 for seizure-like activity, now with unwitnessed fall Unwitnessed fall/seizure-like activity Suspect nonepileptic seizure Monitor Continue antiepileptics for any epileptic seizure Acute hypoxic respiratory failure Suspect poor inspiratory effort in a patient with obesity hypoventilation Check ABG, chest x-ray ANETA CPAP DM insulin dvt prophylaxis - lovenox full code Quality Stroke Does the patient have a stroke diagnosis?: No VTE Prior VTE?: No VTE Risk Level:: Medical - moderate - high VTE Device Contraindication: Treatment Not Indicated VTE Drug Contraindication: N/A - Med Ordered
[2025-03-08 17:12] VITALS: O2SAT 99
[2025-03-08 17:14] LABS: ABG Base Excess 5.6 mmol/L; ABG HCO3 32 mmol/L (22-26); ABG pCO2 54 mmHg (32-45); ABG pH 7.37 (7.35-7.45); ABG pO2 91 mmHg (83-108)
[2025-03-08 18:29] VITALS: BP 121/78; PULSE 76; RESP 20; TEMP 36.5; O2SAT 100
--- OUTSIDE RECORDS SUMMARY | 2025-03-08 18:41 | XMS_ITS | Clinical Summary ---
Author Organization [facility] Address [address] [place] [address] Care Team Providers Care Manager Steel Name Role Phone Rashmi Alfaro MD Primary Care Provider [phone] Encounters Date Type Department Care Team Description 02/25/2025 1:15 PM EDT - 02/25/2025 11:59 PM EDT Hospital [facility] at [address] [address] Encounter for screening mammogram for malignant neoplasm of breast Discharge Disposition: Home or Self Care from Last 3 Months Surgical History Surgery Date Site/Laterality Comments OTHER SURGICAL HISTORY 01/1109 PROCEDURE: [place] SIGMOIDOSCOPY FLX W/BIOPSY SINGLE/MULTIPLE; COMMENT: Up to [...] year. Mammo Location: [facility] at [facility], [address] [place] [address], [facility], . -------- FINAL REPORT -------- Dictated By: Zena Barron Dictated Date: 02/25/2025 15:56 ET Assigned Physician: Zena Barron Reviewed and Electronically Signed By: Zena Barron Signed Date: 02/25/2025 16:03 ET Workstation ID: [id number] Transcribed By: Self Edit Transcribed Date: 02/25/2025 [...] year. Mammo Location: [facility], [address] [place] [address], [id number], . -------- FINAL REPORT -------- Dictated By: Zena Barron Dictated Date: 02/25/2025 15:56 ET Assigned Physician: Zena Barron Reviewed and Electronically Signed By: eZna Barron Signed Date: 02/25/2025 16:03 ET Workstation ID: [id number] Transcribed By: Self Edit Transcribed Date: 02/25/2025 15:56 ET us Rashmi Alfaro MD IMG BI PROCEDURES Final Res ult from Last 3 Months Insurance [employer] MED[employer]ARE ADVANTAGE Care Teams Manager Steel Relationship Specialty Start Date End Date Rashmi Alfaro MD [address] [place] [address] PCP - General 03/06/23
[2025-03-08 19:55] VITALS: BP 145/82; PULSE 84; RESP 16; TEMP 36; O2SAT 99
[2025-03-08] MEDS: QUEtiapine Fumarate 400 MG TABLET PO (21:11)
[2025-03-08] MEDS: Topiramate 100 MG TABLET PO (21:11)
[2025-03-08] MEDS: Gabapentin 400 MG CAPSULE 1200 MG PO (21:11)
[2025-03-08] MEDS: hydrOXYzine HCL 50 MG TABLET PO (21:11)
[2025-03-08] MEDS: clonazePAM 0.5 MG TABLET PO (21:12)
[2025-03-08] MEDS: 0.9 % Sodium Chloride Flush 3 ML SYRINGE IVFLUSH (21:12)
[2025-03-08] MEDS: lamoTRIgine 100 MG TABLET 200 MG PO (21:12)
[2025-03-08] MEDS: cloNIDine HCL 0.1 MG TABLET PO (21:12)
[2025-03-08 21:13] LABS: Glucose, Whole Blood 98 mg/dL (60-115)
[2025-03-08 23:56] VITALS: BP 106/62; PULSE 92; RESP 18; TEMP 36.2; O2SAT 92
[2025-03-09 03:50] VITALS: BP 120/73; PULSE 79; RESP 18; TEMP 36.2; O2SAT 90
[2025-03-09 07:02] LABS: ABG Refer to POC result
[2025-03-09 07:13] LABS: Glucose, Whole Blood 109 mg/dL (60-115)
[2025-03-09 07:37] VITALS: BP 141/94; PULSE 88; RESP 20; TEMP 36.3; O2SAT 100
[2025-03-09 07:55] LABS: Hematocrit 45.1 % (37.0-47.0); Hemoglobin 14.4 g/dl (12.0-16.0); Mean Corpuscular HGB Conc 31.9 g/dl (31.0-35.0); Mean Corpuscular Hemoglobin 28.9 pg (27.0-33.0); Mean Corpuscular Volume 90.6 fL (80.0-98.0); Mean Platelet Volume 9.4 fL (9.4-12.3); Platelet Count 146 X10*3/uL (160-400); Red Blood Count 4.98 X10*6/uL (4.20-5.50); Red Cell Distribution Width 12.7 % (11.0-16.0); White Blood Count 5.6 X10*3/uL (4.8-10.8)
[2025-03-09 08:12] LABS: D Dimer High Sensitivity < 150 NG/ML
[2025-03-09 08:15] LABS: Anion Gap 11 (12-20); Blood Urea Nitrogen 23 mg/dL (9-16); Calcium 8.8 mg/dL (8.4-10.2); Carbon Dioxide 31 mmol/L (22-29); Chloride 105 mmol/L (96-108); Estimated Glomerular Filt Rate 53; Glucose Random 124 mg/dL (60-115); Magnesium 2.3 mg/dL (1.6-2.6); Potassium 3.9 mmol/L (3.3-5.1); Sodium 143 mmol/L (135-145)
--- NOTE | 2025-03-09 09:01 | P.PNIM_ITS ---
Subjective Subjective Date of Service: 03/09/25 Interval History: No further seizure-like Physical Exam 2 Vital Signs: Vital Signs: Last Vital Signs Temp 97.3 F 03/09/25 07:37 Pulse 88 03/09/25 07:37 Resp 20 03/09/25 07:37 BP 141/94 H 03/09/25 07:37 Pulse Ox 100 03/09/25 07:37 O2 Del Method Nasal Cannula 03/09/25 07:37 O2 Flow Rate 4 03/09/25 07:37 Alert oriented x3, some crackles on lungs with mild expiratory Objective Data Active Medications Acetaminophen (Acetaminophen 325 Mg Tablet) 650 mg PO Q6H PRN PRN Reason: Pain, Mild 1-3,fever,headache Albuterol/Ipratropium (Albuterol/Iprat 2.5/0.5mg 3 Ml Ampul.Neb) 3 ml INHALE RQ4H WHILE AWAKE PRN PRN Reason: sob Atorvastatin Calcium (Atorvastatin Calcium 80 Mg Tablet) 80 mg PO DAILY [facility] Azithromycin (Azithromycin 500 Mg Tablet) 500 mg PO Q24H [facility] Calcium Carbonate (Calcium Carbonate 750 Mg Tab.Chew) 750 mg PO Q4H PRN PRN Reason: Heartburn Clonazepam (Clonazepam 0.5 Mg Tablet) 0.5 mg PO BID [facility] Last Admin: 03/08/25 21:12 Dose: 0.5 mg Documented By: MEDINA Clonidine HCl (Clonidine Hcl 0.1 Mg Tablet) 0.1 mg PO TID [facility]; Protocol Last Admin: 03/08/25 21:12 Dose: 0.1 mg Documented By: MEDINA Cyclobenzaprine HCl (Cyclobenzaprine Hcl 10 Mg Tablet) 10 mg PO BID PRN PRN Reason: muscle spasm Dextrose (Dextrose 50 % 25 Gm/50 Ml Syringe) 25 gm IVPUSH Q15M PRN; Protocol PRN Reason: per Hypoglycemia Standing Ord. Enoxaparin Sodium (Enoxaparin Sodium 40 Mg/0.4 Ml Syringe) 40 mg SUBCUT Q24H [facility] Furosemide (Furosemide 40 Mg/4 Ml Vial) 40 mg IVPUSH BID@0900,1800 [facility]; Protocol Gabapentin (Gabapentin 300 Mg Capsule) 300 mg PO BID@0900,1300 [facility] Gabapentin (Gabapentin 400 Mg Capsule) 1,200 mg PO BEDTIME [facility] Last Admin: 03/08/25 21:11 Dose: 1,200 mg Documented By: MEDINA Glucose (Glucose Gel 15 Gm Gel..Gram.) 15 gm PO Q15M PRN; Protocol PRN Reason: per Hypoglycemia Standing Ord. Hydroxyzine HCl (Hydroxyzine Hcl 50 Mg Tablet) 50 mg PO BID [facility] Last Admin: 03/08/25 21:11 Dose: 50 mg Documented By: MEDINA Insulin Human Lispro (Insulin Lispro 100 Unit/Ml 3 Ml Vial) 0 unit SUBCUT QIDACHS [facility]; Protocol Last Admin: 03/09/25 07:19 Dose: Not Given Documented By: AVIVA Non-Admin Reason: No Insulin Coverage Lamotrigine (Lamotrigine 100 Mg Tablet) 200 mg PO BID [facility] Last Admin: 03/08/25 21:12 Dose: 200 mg Documented By: MEDINA Losartan Potassium (Losartan Potassium 25 Mg Tablet) 25 mg PO DAILY [facility]; Protocol Magnesium Hydroxide (Milk Of Magnesia 30 Ml Oral.Susp) 30 ml PO DAILY PRN PRN Reason: Constipation Melatonin (Melatonin 3 Mg Tablet) 6 mg PO BEDTIME PRN PRN Reason: Insomnia Multivitamins/Vitamin C (Multivitamin Tablet) 1 tab PO DAILY [facility] Prednisone (Prednisone 20 Mg Tablet) 40 mg PO DAILY [facility] Quetiapine Fumarate (Quetiapine Fumarate 400 Mg Tablet) 400 mg PO BEDTIME [facility] Last Admin: 03/08/25 21:11 Dose: 400 mg Documented By: MEDINA Sodium Chloride (0.9 % Sodium Chloride Flush 3 Ml Syringe) 3 ml IVFLUSH QSHIFT [facility] Last Admin: 03/08/25 21:12 Dose: 3 ml Documented By: MEDINA Sumatriptan Succinate (Sumatriptan Succinate 100 Mg Tablet) 100 mg PO DAILY PRN PRN Reason: Migraine Headache Topiramate (Topiramate 25 Mg Tablet) 25 mg PO DAILY [facility] Topiramate (Topiramate 100 Mg Tablet) 100 mg PO BEDTIME [facility] Last Admin: 03/08/25 21:11 Dose: 100 mg Documented By: MEDINA Venlafaxine HCl (Venlafaxine Hcl Er 150 Mg Cap.Er.24h) 300 mg PO DAILY [facility] Vitamin D (Cholecalciferol (Vitamin D3) 25 Mcg Tablet) 25 mcg PO DAILY [facility] Labs 03/09/25 07:38 03/09/25 07:38 Labs: Laboratory Results - last 24 hr 03/08/25 03/08/25 03/09/25 17:10 21:09 07:08 MCV MCH MCHC RDW Plt Count MPV Absolute Nucleated RBC Nucleated RBC % (auto) D-Dimer High Sensitivty O2 Saturation 99.0 ABG pH at Pt Temp 7.37 ABG pCO2 at Pt Temp 54 H ABG pO2 at Pt Temp 91 ABG HCO3 32 H ABG Base Excess (Actual) 5.6 Anion Gap Estim Creat Clear Calc Estimated GFR POC Glucose 98 109 Random Glucose Calcium Magnesium 03/09/25 07:38 MCV 90.6 MCH 28.9 MCHC 31.9 RDW 12.7 Plt Count 146 L MPV 9.4 Absolute Nucleated RBC 0.000 Nucleated RBC % (auto) 0.0 D-Dimer High Sensitivty < 150 O2 Saturation ABG pH at Pt Temp ABG pCO2 at Pt Temp ABG pO2 at Pt Temp ABG HCO3 ABG Base Excess (Actual) Anion Gap 11 L Estim Creat Clear Calc TNP Estimated GFR 53 POC Glucose Random Glucose 124 H Calcium 8.8 Magnesium 2.3 Assessment and Plan (1) Psychogenic nonepileptic seizure: Status: Acute Plan 54F PMH epileptic and nonepileptic seizures, hypertension, hyperlipidemia, diabetes, obesity hypoventilation/ANETA, mood disorder, [place] [facility] [place] 03/08/[place]25 for seizure-like activity, discharged to [facility] and same day had unwitnessed fall Unwitnessed fall/seizure-like activity Suspect nonepileptic seizure Monitor Continue antiepileptics for any epileptic seizure Acute hypoxic respiratory failure Multifactorial- poor inspiratory effort in a patient with obesity hypoventilation Possible acute unspecified chf - will give trial of empiric diuretics, check echo Some reactive airway as well we will give prednisone, azithromycin, duonebs Wean oxygen as tolerated ANETA CPAP DM insulin Mood disorder continue anxiolytics, antidepressents dvt prophylaxis - lovenox full code reason for continued hospitalization:hypoxia Quality Stroke Does the patient have a stroke diagnosis?: No VTE Prior VTE?: No VTE Risk Level:: Medical - moderate - high VTE Device Contraindication: Treatment Not Indicated VTE Drug Contraindication: N/A - Med Ordered
[2025-03-09] MEDS: Venlafaxine HCl ER 150 MG CAP.ER.24H 300 MG PO (09:05)
[2025-03-09] MEDS: Losartan Potassium 25 MG TABLET PO (09:05)
[2025-03-09] MEDS: Azithromycin 500 MG TABLET PO (09:05)
[2025-03-09] MEDS: Topiramate 25 MG TABLET PO (09:05)
[2025-03-09] MEDS: Atorvastatin Calcium 80 MG TABLET PO (09:06)
[2025-03-09] MEDS: Gabapentin 300 MG CAPSULE PO ×2 (09:06→12:09)
[2025-03-09] MEDS: predniSONE 20 MG TABLET 40 MG PO (09:06)
[2025-03-09] MEDS: hydrOXYzine HCL 50 MG TABLET PO ×2 (09:06→21:50)
[2025-03-09] MEDS: Multivitamin TABLET 1 TAB PO (09:06)
[2025-03-09] MEDS: cloNIDine HCL 0.1 MG TABLET PO ×3 (09:06→21:48)
[2025-03-09] MEDS: lamoTRIgine 100 MG TABLET 200 MG PO ×2 (09:06→21:47)
[2025-03-09] MEDS: Cholecalciferol (Vitamin D3) 25 MCG TABLET PO (09:06)
[2025-03-09] MEDS: Enoxaparin Sodium 40 MG/0.4 ML SYRINGE SUBCUT (09:07)
[2025-03-09] MEDS: clonazePAM 0.5 MG TABLET PO ×2 (09:07→21:48)
[2025-03-09] MEDS: Furosemide 40 MG/4 ML VIAL IVPUSH ×2 (09:07→17:55)
[2025-03-09] MEDS: 0.9 % Sodium Chloride Flush 3 ML SYRINGE IVFLUSH ×2 (09:07→15:45)
[2025-03-09 09:18] VITALS: BMI 40.2
[2025-03-09] MEDS: oxyCODONE HCl Immed Release 5 MG TABLET PO ×3 (10:24→23:36)
[2025-03-09 10:54] LABS: Glucose, Whole Blood 236 mg/dL (60-115)
--- NOTE | 2025-03-09 11:02 | MHC.CM.PN ---
CUADRA given 03/09, pt then changed to inpatient and IMM given 03/09. Pt was transferred from the inpatient psych unit, discharge plan will likely be for her to return there once medically cleared. Prior to hospitalization, pt lives at home with her who can transport her home if returning home. Pt states she uses home oxygen. PCP: Dr. Rashmi Alfaro
[2025-03-09 11:04] VITALS: BP 122/62; PULSE 86; RESP 18; TEMP 36.1; O2SAT 93
[2025-03-09] MEDS: Insulin Lispro 100 UNIT/ML 3 ML VIAL SUBCUT ×3 (12:07→21:52)
[2025-03-09 15:16] VITALS: BP 112/63; PULSE 96; RESP 16; TEMP 36.8; O2SAT 95
--- NOTE | 2025-03-09 15:30 | PC.NURSE ---
per MD goal sat above 90%
[2025-03-09 16:39] LABS: Glucose, Whole Blood 152 mg/dL (60-115)
[2025-03-09 19:34] VITALS: BP 125/74; PULSE 90; RESP 16; TEMP 36.6; O2SAT 93
[2025-03-09 20:52] LABS: Glucose, Whole Blood 180 mg/dL (60-115)
[2025-03-09] MEDS: Gabapentin 400 MG CAPSULE 1200 MG PO (21:47)
[2025-03-09] MEDS: QUEtiapine Fumarate 400 MG TABLET PO (21:47)
[2025-03-09] MEDS: Melatonin 3 MG TABLET 6 MG PO (21:48)
[2025-03-09] MEDS: Topiramate 100 MG TABLET PO (21:48)
[2025-03-09] MEDS: Cyclobenzaprine HCl 10 MG TABLET PO (21:48)
[2025-03-09] MEDS: SUMAtriptan succinate 100 MG TABLET PO (21:51)
[2025-03-09 23:30] VITALS: BP 122/73; PULSE 71; RESP 20; TEMP 36.7; O2SAT 91
[2025-03-10] VITALS (7 sets, daily range): BP systolic 111–132; BP diastolic 61–71; PULSE 70–87; RESP 14–20; TEMP 36.3–36.8; O2SAT 92–97
--- NOTE | 2025-03-10 07:00 | CA_ITS ---
Transthoracic Echocardiogram Patient (Last, First, Middle): Deisy Greene K Gender: Female Date of : 1970 Age: 54 Procedure Date: 03/10/2025 Procedure Type: Transthoracic Echocardiogram [place] [facility] [place] Height: 167.64 cm Weight: 112.04 kg BSA: 2.19 m2 Heart Rate: bpm BP: 120 / 73 mmHg Heating Unit Installer: TO Referring MD: Luis Courtney MD Photoengraving Helper: Trevin Rees MD Symptoms: pulm edema Study Quality: Fair/Contrast ECG Rhythm: Sinus Conclusions: - 1. Normal LV ejection fraction 55-60% 2. Normal cardiac valvular Dopplers 3. No gross pericardial effusion 4. Suggestion of mildly increased right atrial pressure Findings Procedure Information Contrast agent, definity, is being given per protocol without apparent complications. Left Ventricle Normal left ventricular size, thickness, and systolic function. The visually estimated ejection fraction is between 55-60%. Spectral Doppler is indicative of a normal filling pattern. Right Ventricle Normal right ventricular cavity size and systolic function. Atria The left atrium is normal in size. Interatrial shunt cannot be excluded. The right atrium is normal in size. Aortic Valve The aortic valve was not well visualized. There is no aortic valve stenosis. There is no aortic valve regurgitation. Mitral Valve Likely normal mitral valve structure and function. There is trace mitral valve regurgitation. There is no mitral valve stenosis. Pulmonic Valve The pulmonic valve was not well visualized. Tricuspid Valve Likely normal tricuspid valve structure and function. Tricuspid regurgitation envelope is inadequate for calculation of right ventricular systolic pressure. Great Vessels All visible segments of the aorta are normal in size. The pulmonary artery was not well visualized. There is no dilatation of the ascending aorta measuring 2.60 cm. Venous The inferior vena cava is mildly dilated and collapses less than 50% with inspiration. Pericardium/Pleural There is no evidence of pericardial effusion. Prior Study Comparison No prior study available for comparison. Measurements 2D Linear Measurements IVSd: 0.85 0.6-0.9/0.6-1.0 cm LVIDd: 5.21 3.9-5.3/4.2-5.9 cm LVIDd Index: 2.38 2.4-3.2/2.2-3.1 cm/m2 LVIDs: 3.37 2.0-3.6 cm LVPWd: 0.69 0.7-1.1 cm LV Mass: 172.77 67-162/88-224 g LV Mass Index: 78.89 43-95/49-115 g/m2 LVOT Diam: 2.10 3.0+(-)1.3 cm 2D Systolic Function EF 4C: 57.30 >55% Mitral Valve MV Pk E: 0.80 MV PK A: 0.69 MV Decel Time: 198.00 E/A: 1.20 E'Lateral: 7.40 E'Medial: 6.53 E/E' Med: 12.30 E/E' Lat: 10.80 PHT: 58.00 MVA PHT: 3.79 Decel [place]: 4.04 Aortic Valve AoV Pk Kosta: 1.52 AoV Mn Kosta: 1.07 AoV VTI: 0.29 AoV Pk Grad: 9.00 Aov Mn Grad: 5.00 [place] Cont.VTI: 2.48 LVOT LVOT Pk Kosta: 1.10 LVOT Mn Kosta: 0.72 LVOT VTI: 0.21 LVOT Pk Grad: 5.00 LVOT Mn Grad: 2.00 LVOT Diam: 2.10 LVOT Area: 3.46 Diastolic Function MV Pk E: 0.80 MV Pk A: 0.69 E/A: 1.20 E'Medial: 6.53 E/E' Med: 12.30 E' Laterial: 7.40 E/E' Lat: 10.80 Right Ventricle TAPSE (mm): 23.50 TVS' Kosta: 14.30 Tricuspid Valve RA Press: 8.00 Great Vessels Aorta Sinus of Valsalva: 2.96 2.0-3.5 cm Ao Asc: 2.60 2.1-3.4 cm Updated in Other Vendor System with Status of Final Rai Washburn MD electronically signed on 03/10/2025 1:49:20 PM with status of Final
[2025-03-10 07:02] LABS: Hematocrit 43.6 % (37.0-47.0); Hemoglobin 14.3 g/dl (12.0-16.0); Mean Corpuscular HGB Conc 32.8 g/dl (31.0-35.0); Mean Corpuscular Hemoglobin 28.8 pg (27.0-33.0); Mean Corpuscular Volume 87.9 fL (80.0-98.0); Mean Platelet Volume 9.6 fL (9.4-12.3); Platelet Count 174 X10*3/uL (160-400); Red Blood Count 4.96 X10*6/uL (4.20-5.50); Red Cell Distribution Width 12.6 % (11.0-16.0)
[2025-03-10 07:12] LABS: Alanine Aminotransferase 14 U/L (0-31); Albumin Level 4.2 g/dL (3.5-5.0); Anion Gap 11 (12-20); Aspartate Amino Transferase 20 U/L (5-31); Bilirubin Direct < 0.2 mg/dL (0.0-0.5); Bilirubin Total 0.2 mg/dL (0.0-1.0); Blood Urea Nitrogen 22 mg/dL (9-16); Calcium 9.3 mg/dL (8.4-10.2); Carbon Dioxide 33 mmol/L (22-29); Chloride 102 mmol/L (96-108); Creatinine Clr Calc Pharmacy 74.8; Estimated Glomerular Filt Rate 53; Glucose Random 128 mg/dL (60-115); Magnesium 2.2 mg/dL (1.6-2.6); Potassium 3.8 mmol/L (3.3-5.1); Sodium 142 mmol/L (135-145); Total Protein 6.8 g/dL (6.5-8.0)
[2025-03-10 07:18] LABS: Glucose, Whole Blood 139 mg/dL (60-115)
[2025-03-10 07:24] LABS: Alkaline Phosphatase 94 U/L (39-117)
[2025-03-10] MEDS: Furosemide 40 MG/4 ML VIAL IVPUSH ×2 (07:39→18:11)
[2025-03-10] MEDS: oxyCODONE HCl Immed Release 5 MG TABLET PO ×2 (07:40→23:08)
[2025-03-10] MEDS: Gabapentin 300 MG CAPSULE PO ×2 (07:40→12:11)
[2025-03-10] MEDS: Azithromycin 500 MG TABLET PO (07:40)
[2025-03-10] MEDS: Topiramate 25 MG TABLET PO (07:41)
[2025-03-10] MEDS: lamoTRIgine 100 MG TABLET 200 MG PO ×2 (07:41→23:06)
[2025-03-10] MEDS: Venlafaxine HCl ER 150 MG CAP.ER.24H 300 MG PO (07:41)
[2025-03-10] MEDS: Atorvastatin Calcium 80 MG TABLET PO (07:41)
[2025-03-10] MEDS: predniSONE 20 MG TABLET 40 MG PO (07:42)
[2025-03-10] MEDS: hydrOXYzine HCL 50 MG TABLET PO ×2 (07:42→23:06)
[2025-03-10] MEDS: clonazePAM 0.5 MG TABLET PO ×2 (07:42→23:06)
[2025-03-10] MEDS: Cholecalciferol (Vitamin D3) 25 MCG TABLET PO (07:42)
[2025-03-10] MEDS: cloNIDine HCL 0.1 MG TABLET PO ×3 (07:42→23:07)
[2025-03-10] MEDS: Losartan Potassium 25 MG TABLET PO (07:42)
[2025-03-10] MEDS: Multivitamin TABLET 1 TAB PO (07:42)
[2025-03-10] MEDS: 0.9 % Sodium Chloride Flush 3 ML SYRINGE IVFLUSH ×2 (07:43→18:12)
[2025-03-10 10:55] LABS: Glucose, Whole Blood 200 mg/dL (60-115)
--- NOTE | 2025-03-10 11:33 | MHC.CM.PN ---
EMR REVIEWED, PER HOSPITALIST PT MAY BE CLEARED FOR DC TODAY, PT WILL NEE CARE TEAM AND ANTIC RETURN TO [facility], CM WILL CONT TO FOLLOW DC NEEDS.
[2025-03-10] MEDS: Enoxaparin Sodium 40 MG/0.4 ML SYRINGE SUBCUT (12:11)
[2025-03-10] MEDS: Insulin Lispro 100 UNIT/ML 3 ML VIAL SUBCUT ×2 (12:12→18:12)
--- NOTE | 2025-03-10 14:45 | HO.PM.IMPN ---
Subjective Subjective Date of Service: 03/10/25 Interval History: seen and evaluated no recurrent episodes of seizure weaning down O2 no other events Review of Systems Review of Systems: Yes all other systems are reviewed and are negative Physical Exam Vital Signs: Vital Signs: Last Vital Signs Temp 98.2 F 03/10/25 11:13 Pulse 85 03/10/25 11:13 Resp 18 03/10/25 11:13 BP 119/66 03/10/25 11:13 Pulse Ox 92 03/10/25 11:13 O2 Del Method Nasal Cannula 03/10/25 11:13 O2 Flow Rate 2 03/10/25 11:13 BMI result Body Mass Index 40.2 Const: Other: Constitutional : interactive, not in distress Cardiovascular : no JVP, no lower extremity edema Respiratory : bilateral chest movement, not in resp distress , mild RLL crackles Gastrointestinal: soft, lax, Non tender Skin : Warm, Dry Neurological : Alert & oriented , No focal deficit Objective Data Active Medications Acetaminophen (Acetaminophen 325 Mg Tablet) 650 mg PO Q6H PRN PRN Reason: Pain, Mild 1-3,fever,headache Albuterol/Ipratropium (Albuterol/Iprat 2.5/0.5mg 3 Ml Ampul.Neb) 3 ml INHALE RQ4H WHILE AWAKE PRN PRN Reason: sob Atorvastatin Calcium (Atorvastatin Calcium 80 Mg Tablet) 80 mg PO DAILY [facility] Last Admin: 03/10/25 07:41 Dose: 80 mg Documented By: RICKI Azithromycin (Azithromycin 500 Mg Tablet) 500 mg PO Q24H [facility] Last Admin: 03/10/25 07:40 Dose: 500 mg Documented By: RICKI Benzocaine (Throat Lozenge, Medicated Lozenge) 1 lozenge MUCOUS MEM Q2H PRN PRN Reason: Sore Throat Calcium Carbonate (Calcium Carbonate 750 Mg Tab.Chew) 750 mg PO Q4H PRN PRN Reason: Heartburn Clonazepam (Clonazepam 0.5 Mg Tablet) 0.5 mg PO BID [facility] Last Admin: 03/10/25 07:42 Dose: 0.5 mg Documented By: RICKI Clonidine HCl (Clonidine Hcl 0.1 Mg Tablet) 0.1 mg PO TID [facility]; Protocol Last Admin: 03/10/25 07:42 Dose: 0.1 mg Documented By: RICKI Cyclobenzaprine HCl (Cyclobenzaprine Hcl 10 Mg Tablet) 10 mg PO BID PRN PRN Reason: muscle spasm Last Admin: 03/09/25 21:48 Dose: 10 mg Documented By: MILLI Dextrose (Dextrose 50 % 25 Gm/50 Ml Syringe) 25 gm IVPUSH Q15M PRN; Protocol PRN Reason: per Hypoglycemia Standing Ord. Enoxaparin Sodium (Enoxaparin Sodium 40 Mg/0.4 Ml Syringe) 40 mg SUBCUT Q24H [facility] Last Admin: 03/10/25 12:11 Dose: 40 mg Documented By: RICKI Furosemide (Furosemide 40 Mg/4 Ml Vial) 40 mg IVPUSH BID@0900,1800 [facility]; Protocol Last Admin: 03/10/25 07:39 Dose: 40 mg Documented By: RICKI Gabapentin (Gabapentin 300 Mg Capsule) 300 mg PO BID@0900,1300 [facility] Last Admin: 03/10/25 12:11 Dose: 300 mg Documented By: RICKI Gabapentin (Gabapentin 400 Mg Capsule) 1,200 mg PO BEDTIME [facility] Last Admin: 03/09/25 21:47 Dose: 1,200 mg Documented By: MILLI Glucose (Glucose Gel 15 Gm Gel..Gram.) 15 gm PO Q15M PRN; Protocol PRN Reason: per Hypoglycemia Standing Ord. Hydroxyzine HCl (Hydroxyzine Hcl 50 Mg Tablet) 50 mg PO BID [facility] Last Admin: 03/10/25 07:42 Dose: 50 mg Documented By: RICKI Insulin Human Lispro (Insulin Lispro 100 Unit/Ml 3 Ml Vial) 0 unit SUBCUT QIDACHS [facility]; Protocol Last Admin: 03/10/25 12:12 Dose: 4 unit Documented By: RICKI Lamotrigine (Lamotrigine 100 Mg Tablet) 200 mg PO BID [facility] Last Admin: 03/10/25 07:41 Dose: 200 mg Documented By: RICKI Losartan Potassium (Losartan Potassium 25 Mg Tablet) 25 mg PO DAILY [facility]; Protocol Last Admin: 03/10/25 07:42 Dose: 25 mg Documented By: RICKI Magnesium Hydroxide (Milk Of Magnesia 30 Ml Oral.Susp) 30 ml PO DAILY PRN PRN Reason: Constipation Melatonin (Melatonin 3 Mg Tablet) 6 mg PO BEDTIME PRN PRN Reason: Insomnia Last Admin: 03/09/25 21:48 Dose: 6 mg Documented By: MILLI Multivitamins/Vitamin C (Multivitamin Tablet) 1 tab PO DAILY [facility] Last Admin: 03/10/25 07:42 Dose: 1 tab Documented By: RICKI Oxycodone HCl (Oxycodone Hcl Immed Release 5 Mg Tablet) 5 mg PO Q6H PRN PRN Reason: Pain, Severe (Pain Scale 7-10) Last Admin: 03/10/25 07:40 Dose: 5 mg Documented By: RICKI Prednisone (Prednisone 20 Mg Tablet) 40 mg PO DAILY [facility] Last Admin: 03/10/25 07:42 Dose: 40 mg Documented By: RICKI Quetiapine Fumarate (Quetiapine Fumarate 400 Mg Tablet) 400 mg PO BEDTIME [facility] Last Admin: 03/09/25 21:47 Dose: 400 mg Documented By: MILLI Sodium Chloride (0.9 % Sodium Chloride Flush 3 Ml Syringe) [facility] Admin: 03/10/25 07:43 Dose: 3 ml Documented By: RICKI Sumatriptan Succinate (Sumatriptan Succinate 100 Mg Tablet) 100 mg PO DAILY PRN PRN Reason: Migraine Headache Last Admin: 03/09/25 21:51 Dose: 100 mg Documented By: MILLI Topiramate (Topiramate 25 Mg Tablet) 25 mg PO DAILY [facility] Last Admin: 03/10/25 07:41 Dose: 25 mg Documented By: RICKI Topiramate (Topiramate 100 Mg Tablet) 100 mg PO BEDTIME [facility] Last Admin: 03/09/25 21:48 Dose: 100 mg Documented By: MILLI Venlafaxine HCl (Venlafaxine Hcl Er 150 Mg Cap.Er.24h) 300 mg PO DAILY [facility] Last Admin: 03/10/25 07:41 Dose: 300 mg Documented By: RICKI Vitamin D (Cholecalciferol (Vitamin D3) 25 Mcg Tablet) 25 mcg PO DAILY [facility] Last Admin: 03/10/25 07:42 Dose: 25 mcg Documented By: RICKI Labs 03/10/25 06:38 03/10/25 06:38 Labs: Laboratory Results - last 24 hr 03/09/25 03/09/25 03/10/25 16:35 20:06 06:38 MCV 87.9 MCH 28.8 MCHC 32.8 RDW 12.6 Plt Count 174 MPV 9.6 Absolute Nucleated RBC 0.000 Nucleated RBC % (auto) 0.0 Anion Gap 11 L Estim Creat Clear Calc 74.8 Estimated GFR 53 POC Glucose 152 H 180 H Random Glucose 128 H Calcium 9.3 Magnesium 2.2 Total Bilirubin 0.2 Direct Bilirubin < 0.2 AST 20 ALT 14 Alkaline Phosphatase 94 Total Protein 6.8 Albumin 4.2 03/10/25 03/10/25 07:08 10:48 MCV MCH MCHC RDW Plt Count MPV Absolute Nucleated RBC Nucleated RBC % (auto) Anion Gap Estim Creat Clear Calc Estimated GFR POC Glucose 139 H 200 H Random Glucose Calcium Magnesium Total Bilirubin Direct Bilirubin AST ALT Alkaline Phosphatase Total Protein Albumin Assessment and Plan (1) Type 2 diabetes mellitus without complications: Status: Chronic (2) Seizure-like activity: Status: Acute (3) Hypoxemia: Status: Acute Plan 54F PMH epileptic and nonepileptic seizures, hypertension, hyperlipidemia, diabetes, obesity hypoventilation/ANETA, mood disorder, was [place] [facility] [place] 03/08/2025 for seizure-like activity, discharged to [facility] and same day had unwitnessed fall Unwitnessed fall/seizure-like activity Suspect nonepileptic seizure, no recurrence inpatient Monitor Continue antiepileptics for any epileptic seizure Acute hypoxia Multifactorial- obesity hypoventilation, CHF, Atelactasis trial of empiric diuretics check echo reactive airway as well we will give prednisone, azithromycin, duonebs Wean oxygen as tolerated ANETA CPAP DM insulin Mood disorder continue anxiolytics, antidepressents dvt prophylaxis - lovenox full code reason for continued hospitalization:hypoxia Quality Stroke Does the patient have a stroke diagnosis?: No VTE Prior VTE?: No VTE Risk Level:: Medical - moderate - high VTE Device Contraindication: Treatment Not Indicated VTE Drug Contraindication: N/A - Med Ordered
[2025-03-10 16:32] LABS: Glucose, Whole Blood 191 mg/dL (60-115)
[2025-03-10 20:30] LABS: Glucose, Whole Blood 111 mg/dL (60-115)
[2025-03-10] MEDS: Gabapentin 400 MG CAPSULE 1200 MG PO (23:05)
[2025-03-10] MEDS: Melatonin 3 MG TABLET 6 MG PO (23:06)
[2025-03-10] MEDS: Topiramate 100 MG TABLET PO (23:06)
[2025-03-10] MEDS: Cyclobenzaprine HCl 10 MG TABLET PO (23:07)
[2025-03-10] MEDS: SUMAtriptan succinate 100 MG TABLET PO (23:08)
[2025-03-10] MEDS: QUEtiapine Fumarate 400 MG TABLET PO (23:09)
[2025-03-11 03:21] VITALS: BP 110/69; PULSE 73; RESP 18; TEMP 36.2; O2SAT 95
[2025-03-11 07:24] LABS: MANUAL DIFF FLAG NO
[2025-03-11 07:33] LABS: Basophils Absolute Auto 0.1 X10*3/uL (0.0-0.2); Basophils Percent Auto 0.6 % (0-2); Eosinophils Absolute Auto 0.3 X10*3/uL (0.0-0.4); Eosinophils Percent Auto 3.3 % (0-4); Hemoglobin 15.7 g/dl (12.0-16.0); Imm Gran Abs Auto 0.03 X10*3/uL (0.00-0.03); Imm Gran Pct Auto 0.3 % (0.0-0.4); Lymphocytes Absolute Auto 2.7 X10*3/uL (1.2-4.9); Mean Corpuscular HGB Conc 32.7 g/dl (31.0-35.0); Mean Corpuscular Hemoglobin 28.7 pg (27.0-33.0); Mean Corpuscular Volume 87.8 fL (80.0-98.0); Mean Platelet Volume 9.9 fL (9.4-12.3); Monocytes Absolute Auto 0.6 X10*3/uL (0.1-1.2); Monocytes Percent Auto 5.9 % (2-11); Neutrophils Absolute Auto 5.7 x10*3/uL (2.0-8.3); Neutrophils Percent Auto 60.9 % (45-73); Platelet Count 181 X10*3/uL (160-400); Red Blood Count 5.47 X10*6/uL (4.20-5.50); Red Cell Distribution Width 12.5 % (11.0-16.0); White Blood Count 9.4 X10*3/uL (4.8-10.8)
[2025-03-11 07:38] VITALS: BP 109/67; PULSE 77; RESP 16; TEMP 36.2; O2SAT 95
[2025-03-11 07:44] LABS: Anion Gap 13 (12-20); Blood Urea Nitrogen 23 mg/dL (9-16); Calcium 9.6 mg/dL (8.4-10.2); Carbon Dioxide 31 mmol/L (22-29); Chloride 101 mmol/L (96-108); Creatinine Clr Calc Pharmacy 75.5; Estimated Glomerular Filt Rate 54; Glucose Random 120 mg/dL (60-115); Potassium 3.2 mmol/L (3.3-5.1); Sodium 142 mmol/L (135-145)
[2025-03-11 07:46] LABS: Glucose, Whole Blood 126 mg/dL (60-115)
[2025-03-11] MEDS: predniSONE 20 MG TABLET 40 MG PO (09:18)
[2025-03-11] MEDS: cloNIDine HCL 0.1 MG TABLET PO (09:18)
[2025-03-11] MEDS: Atorvastatin Calcium 80 MG TABLET PO (09:18)
[2025-03-11] MEDS: Losartan Potassium 25 MG TABLET PO (09:18)
[2025-03-11] MEDS: Azithromycin 500 MG TABLET PO (09:18)
[2025-03-11] MEDS: Topiramate 25 MG TABLET PO (09:18)
[2025-03-11] MEDS: Cholecalciferol (Vitamin D3) 25 MCG TABLET PO (09:18)
[2025-03-11] MEDS: Venlafaxine HCl ER 150 MG CAP.ER.24H 300 MG PO (09:19)
[2025-03-11] MEDS: Gabapentin 300 MG CAPSULE PO (09:19)
[2025-03-11] MEDS: hydrOXYzine HCL 50 MG TABLET PO (09:19)
[2025-03-11] MEDS: clonazePAM 0.5 MG TABLET PO (09:19)
[2025-03-11] MEDS: lamoTRIgine 100 MG TABLET 200 MG PO (09:19)
[2025-03-11] MEDS: Multivitamin TABLET 1 TAB PO (09:19)
[2025-03-11] MEDS: Throat Lozenge, Medicated LOZENGE 1 LOZENGE MUCOUS MEM (09:19)
[2025-03-11] MEDS: 0.9 % Sodium Chloride Flush 3 ML SYRINGE IVFLUSH (09:21)
[2025-03-11] MEDS: Furosemide 40 MG/4 ML VIAL IVPUSH (09:24)
[2025-03-11] MEDS: Enoxaparin Sodium 40 MG/0.4 ML SYRINGE SUBCUT (09:24)
[2025-03-11] MEDS: oxyCODONE HCl Immed Release 5 MG TABLET PO (09:25)
[2025-03-11 09:51] VITALS: BP 109/67; PULSE 77; O2SAT 95
[2025-03-11 11:06] LABS: Glucose, Whole Blood 231 mg/dL (60-115)
[2025-03-11] MEDS: Insulin Lispro 100 UNIT/ML 3 ML VIAL SUBCUT (11:20)
[2025-03-11] MEDS: Ibuprofen 400 MG TABLET PO (11:21)
[2025-03-11] MEDS: Cyclobenzaprine HCl 10 MG TABLET PO (11:21)
[2025-03-11 11:26] VITALS: BP 119/72; PULSE 97; RESP 16; TEMP 36.8; O2SAT 90
--- NOTE | 2025-03-11 11:49 | P.DS_ITS ---
DS: Providers Provider Date of Service: 03/11/25 Date of admission: 03/09/25 08:55 Date of discharge: 03/11/25 Primary care physician: Rashmi Alfaro MD Consults: 03/11/25 07:39 Inpt CARE Team Crisis Consult Routine Comment: Reason for consultation: eval for reported SI and placement, medically clear DS: Diagnosis Discharge Diagnosis (1) Type 2 diabetes mellitus without complications: Status: Chronic (2) Seizure-like activity: Status: Acute (3) Hypoxemia: Status: Acute DS: Summary Hospital Course Hospital Course: Admission note HPI 54F PMH epileptic and nonepileptic seizures, hypertension, hyperlipidemia, diabetes, obesity hypoventilation/ANETA, mood disorder, was admitted to [facility] [place] 03/04/2025 to 03/08/2025 for seizure-like activity. Was seen by Neurology who felt this was likely nonepileptic seizure and recommended counseling. Was continued antiepileptics, due to concern over comments if suicidal ideation patient was admitted to [facility]. After 2 hours on [facility] patient was found to be on the ground after unwitnessed fall. Patient was able to verbalize that she was having a seizure patient noted to be hypoxic to high 80s on room air. Transferred back to Medicine for observation. Hospital course The patient was monitored for the following: # Unwitnessed fall/seizure-like activity. Suspect nonepileptic seizure, no recurrence inpatient. To continue antiepileptics medications for any epileptic seizure. she was seen recently by Neurology who recommended to continue with Lamotrigine and Topiramate for now and suggested outpatient counseling and therapy. # Acute hypoxia incident likely is Multifactorial- obesity hypoventilation, CHF, Atelactasis which was treated with trial of empiric diuretics , steroids, antibiotics with good response as she was weaned off O2. Echo was done showing normal EF with mild elevated in rightsided pressures. To be discharged on Doxycycline , PRN Duonebs and Mucinex. Discontinue Steroids as its making her excited. Wean oxygen as tolerated but can use 2L as needed for now. # ANETA Use CPAP at bedtime and with naps Discussed with dr Portillo for discharge planning to psych floor as care team recommended. PT evaluated the patient and recommended STR at time of discharge. Time Attestation Discharge Coordination Time (in mins): 42 Quality: Safe Use of Opioids Does Pt have an Active Cancer Diagnosis on the Problem List?: No Quality: Stroke Does the patient have a stroke diagnosis?: No Physical Exam Vital Signs: Vital Signs: Last Vital Signs Temp 98.2 F 03/11/25 11:26 Pulse 97 03/11/25 11:26 Resp 16 03/11/25 11:26 BP 119/72 03/11/25 11:26 Pulse Ox 90 L 03/11/25 11:26 O2 Del Method Room Air 03/11/25 11:26 O2 Flow Rate 1.5 03/11/25 07:38 BMI result Body Mass Index 40.2 Const: Other: Constitutional : interactive, not in distress Cardiovascular : no JVP, no lower extremity edema Respiratory : bilateral chest movement, not in resp distress , no significant basal crackles Gastrointestinal: soft, lax, Non tender Skin : Warm, Dry Neurological : Alert & oriented , No focal deficit DS: Data Data Completed and Pending Labs on day of discharge: Laboratory Results - last 24 hr 03/10/25 03/10/25 03/11/25 16:25 20:24 06:46 WBC 9.4 RBC 5.47 Hgb 15.7 Hct 48.0 H MCV 87.8 MCH 28.7 MCHC 32.7 RDW 12.5 Plt Count 181 MPV 9.9 Immature Gran % (Auto) 0.3 Neut % (Auto) 60.9 Lymph % (Auto) 29.0 [place] % (Auto) 5.9 Eos % (Auto) 3.3 Baso % (Auto) 0.6 Lymph # (Auto) 2.7 [place] # (Auto) 0.6 Eos # (Auto) 0.3 Baso # (Auto) 0.1 Abs Immat Gran (auto) 0.03 Absolute Neuts (auto) 5.7 Absolute Nucleated RBC 0.000 Nucleated RBC % (auto) 0.0 Sodium 142 Potassium 3.2 L Chloride 101 Carbon Dioxide 31 H Anion Gap 13 BUN 23 H Creatinine 1.06 Estim Creat Clear Calc 75.5 Estimated GFR 54 POC Glucose 191 H 111 Random Glucose 120 H Calcium 9.6 03/11/25 03/11/25 07:41 10:58 WBC RBC Hgb Hct MCV MCH MCHC RDW Plt Count MPV Immature Gran % (Auto) Neut % (Auto) Lymph % (Auto) [place] % (Auto) Eos % (Auto) Baso % (Auto) Lymph # (Auto) [place] # (Auto) Eos # (Auto) Baso # (Auto) Abs Immat Gran (auto) Absolute Neuts (auto) Absolute Nucleated RBC Nucleated RBC % (auto) Sodium Potassium Chloride Carbon Dioxide Anion Gap BUN Creatinine Estim Creat Clear Calc Estimated GFR POC Glucose 126 H 231 H Random Glucose Calcium Imaging Chest x-ray: Radiologist's impression: ITS Impressions Hip/Pelvis X-Ray 03/09/25 16:20 IMPRESSION: No acute bony abnormalities. Mild degenerative arthritis bilateral hip joints. Electronically signed by: Bishop Aguirre MD 03/09/2025 04:59 PM EDT RP Discharge Plan Discharge Anticipated Discharge Date/Time: 03/11/25 11:41 Patient Disposition: Xfer Psychiatric Hosp Discharge Diagnosis: Pneumonia Referrals: Rashmi Alfaro MD [Primary Care Provider] - 1 Week Discharge Medications: New Sore Throat (benzocaine-menth) 15-3.6 mg Lozenge 1 damaris mucous membrane Q2H PRN (Reason: Sore Throat) Qty: 20 0RF doxycycline monohydrate 100 mg capsule 100 mg PO BID Qty: 10 0RF guaifenesin [Mucinex] 600 mg tablet extended release 12hr 600 mg PO BID Qty: 14 0RF ipratropium-albuterol 0.5 mg-3 mg(2.5 mg base)/3 mL Solution For Nebulization 3 ml inhalation RQ4H WHILE AWAKE PRN (Reason: sob) 7 Days Qty: 30 0RF Continued cholecalciferol (vitamin D3) [Vitamin D3] 25 mcg (1,000 unit) Tablet 25 mcg PO DAILY vitamin B complex Tablet 1 tab PO DAILY cyclobenzaprine 10 mg tablet 10 mg PO BID PRN (Reason: muscle spasm) 30 Days Qty: 60 6RF clonidine HCl 0.1 mg tablet 0.1 mg PO TID Qty: 30 0RF lamotrigine 200 mg tablet 200 mg PO BID Qty: 60 0RF sumatriptan succinate [Imitrex] 100 mg tablet 100 mg PO DAILY PRN (Reason: Migraine Headache) Qty: 30 0RF clonazepam 0.5 mg tablet 0.5 mg PO BID Qty: 60 0RF venlafaxine [Effexor XR] 150 mg capsule,extended release 24hr 300 mg PO DAILY Qty: 60 0RF topiramate 25 mg Tablet 25 mg PO DAILY Qty: 30 0RF docusate sodium 50 mg Capsule 50 mg PO DAILY Qty: 30 0RF hydroxyzine HCl 50 mg tablet 50 mg PO BID Qty: 90 0RF tramadol 50 mg tablet 50 mg PO Q6H PRN (Reason: Pain) Qty: 120 0RF losartan 25 mg tablet 25 mg PO DAILY Qty: 30 0RF gabapentin 300 mg Capsule 300 mg PO BID@0900,1300 Qty: 60 0RF gabapentin 300 mg Capsule 1,200 mg PO BEDTIME Qty: 120 0RF polyethylene glycol 3350 [Miralax] 17 gram/dose Powder 17 g PO DAILY Qty: 30 0RF albuterol sulfate 90 mcg/actuation HFA aerosol inhaler 2 puff inhalation Q6H PRN (Reason: cough/bronchospasm) Qty: 8.5 4RF topiramate 100 mg tablet 100 mg PO BEDTIME Qty: 30 0RF rosuvastatin 20 mg Tablet 20 mg PO DAILY Qty: 30 0RF quetiapine [Seroquel] 400 mg tablet 400 mg PO BEDTIME Qty: 30 0RF acetaminophen [Tylenol] 325 mg capsule 325 mg PO QID PRN (Reason: Pain) meloxicam 15 mg tablet 15 mg PO DAILY PRN (Reason: Pain) nystatin 100,000 unit/gram powder 1 appl topical BID Changed furosemide 20 mg tablet 40 mg PO DAILY Qty: 60 0RF Discharge Orders: Discharge Order (Routine); Ordered 03/11/25 Ordered By: Jerry Harkins Diet: Diabetic diet Activity on Discharge: As tolerated Stand Alone Forms: Patient Portal Discharge page Print Language: Greenlandic
--- NOTE | 2025-03-11 12:08 | MHC.CM.PN ---
Per MD documentation, Patient will dc to [facility].Last IMM was addressed on 03/09/2025.
== END 2025-03-11 11:52 | DRG 193 ==
PROVIDERS: Admitting Provider Internal Medicine; PCP Family Medicine; Visit Provider Student in an Organized Health Care Education/Training Program
DX: J18.9 Pneumonia, unspecified organism (principal); J96.01 Acute respiratory failure with hypoxia; E66.2 Morbid (severe) obesity with alveolar hypoventilation; J98.11 Atelectasis; R56.9 Unspecified convulsions; F39 Unspecified mood [affective] disorder; I50.9 Heart failure, unspecified; E11.9 Type 2 diabetes mellitus without complications; Z79.899 Other long term (current) drug therapy
CPT/HCPCS: 36415; 36600; 71045; 73502; 80048; 80076; 82803; 82947; 83735; 85025; 85027; 85379; 93306; 94799; 97162; 99222; J1650; J1940; Q9957; S9485

== ENCOUNTER → 2025-03-08 | Outpatient (BNV) | payer MEDICARE, SELFPAY | PROVIDERS: Admitting Provider Internal Medicine; Visit Provider Internal Medicine | DX: R56.9 Unspecified convulsions (principal); E11.9 Type 2 diabetes mellitus without complications; R09.02 Hypoxemia | CPT/HCPCS: 99232; 99239 ==

== ENCOUNTER 2025-03-09 08:55 | Outpatient (BNV) | payer MEDICARE, SELFPAY | END 2025-03-09 16:20 | PROVIDERS: Admitting Provider Internal Medicine; PCP Family Medicine; Visit Provider Radiology Diagnostic Radiology | DX: M25.552 Pain in left hip (principal) | CPT/HCPCS: 73502 ==

== ENCOUNTER 2025-03-09 08:55 | Outpatient (BNV) | payer MEDICARE, SELFPAY | END 2025-03-10 07:00 | PROVIDERS: Admitting Provider Internal Medicine; PCP Family Medicine; Visit Provider Internal Medicine Cardiovascular Disease | DX: I34.0 Nonrheumatic mitral (valve) insufficiency (principal); I36.1 Nonrheumatic tricuspid (valve) insufficiency | CPT/HCPCS: 93306 ==

== ENCOUNTER 2025-03-11 12:16 | Inpatient (IN) | payer MEDICARE, SELFPAY ==
--- NOTE | 2025-03-11 12:56 | PHA.MEDREC ---
Pharmacy Consult ? Medication Reconciliation Pharmacy has completed the medication reconciliation. Pt was moved from medical floor, utilized that list to complete claims.
[2025-03-11 14:00] VITALS: BP 121/67; PULSE 105; RESP 18; TEMP 36.9; O2SAT 93
[2025-03-11 14:43] VITALS: BMI 39.2
--- OUTSIDE RECORDS SUMMARY | 2025-03-11 15:54 | XMS_ITS | Clinical Summary ---
Author Organization [facility] Address [address] [place] [address] Care Team Providers Care Recruiter Manager Name Role Phone Rashmi Alfaro MD Primary Care Provider [phone] Encounters Date Type Department Care Team Description 02/25/2025 1:15 PM EDT - 02/25/2025 11:59 PM EDT Hospital Encounter [facility] at [address] [address] Encounter for screening mammogram for malignant neoplasm of breast Discharge Disposition: Home or Self Care from Last 3 Months Surgical History Surgery Date Site/Laterality Comments OTHER SURGICAL HISTORY 01/1109 PROCEDURE: [place] SIGMOIDOSCOPY FLX W/BIOPSY SINGLE/MULTIPLE; COMMENT: Up to [...] year. Mammo Location: [facility] at [facility], [address] [place] [address], [facility], . -------- FINAL REPORT -------- Dictated By: Zena Barron Dictated Date: 02/25/2025 15:56 ET Assigned Physician: Zena Barron Reviewed and Electronically Signed By: Zena Barron Signed Date: 02/25/2025 16:03 ET Workstation ID: [id number] Transcribed By: Self Edit Transcribed Date: 02/25/2025 [...] year. Mammo Location: [facility], [address] [place] [address], [id number], . -------- FINAL REPORT -------- Dictated By: Zena Barron Dictated Date: 02/25/2025 15:56 ET Assigned Physician: Zena Barron Reviewed and Electronically Signed By: Zena Barron Signed Date: 02/25/2025 16:03 ET Workstation ID: [id number] Transcribed By: Self Edit Transcribed Date: 02/25/2025 15:56 ET us Rashmi Alfaro MD IMG BI PROCEDURES Final Res ult from Last 3 Months Insurance [employer] MED[employer]ARE [employer]AGE Care Teams Recruiter Manager Relationship Specialty Start Date End Date Rashmi Alfaro MD [address] [place] [address] PCP - General 03/06/23
[2025-03-11 16:13] LABS: Alanine Aminotransferase 28 U/L (0-31); Albumin Level 4.9 g/dL (3.5-5.0); Alkaline Phosphatase 124 U/L (39-117); Anion Gap 17 (12-20); Aspartate Amino Transferase 30 U/L (5-31); Bilirubin Total 0.4 mg/dL (0.0-1.0); Blood Urea Nitrogen 25 mg/dL (9-16); Carbon Dioxide 31 mmol/L (22-29); Chloride 92 mmol/L (96-108); Estimated Glomerular Filt Rate 36; Glucose Random 229 mg/dL (60-115); Potassium 3.8 mmol/L (3.3-5.1); Sodium 136 mmol/L (135-145); Total Protein 8.1 g/dL (6.5-8.0)
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
[2025-03-11 20:00] VITALS: BP 130/68; PULSE 93; RESP 17; TEMP 36.2; O2SAT 93
[2025-03-11] MEDS: NaPROXEN 500 MG TABLET PO (21:17)
[2025-03-11] MEDS: clonazePAM 0.5 MG TABLET PO (21:19)
[2025-03-11] MEDS: QUEtiapine Fumarate 400 MG TABLET PO (21:19)
[2025-03-11] MEDS: lamoTRIgine 100 MG TABLET 200 MG PO (21:19)
[2025-03-11] MEDS: SUMAtriptan succinate 100 MG TABLET PO (21:19)
[2025-03-11] MEDS: hydrOXYzine HCL 50 MG TABLET PO (21:19)
[2025-03-11] MEDS: Gabapentin 400 MG CAPSULE 1200 MG PO (21:19)
[2025-03-11 21:20] VITALS: BP 130/68
[2025-03-11] MEDS: Topiramate 100 MG TABLET PO (21:20)
[2025-03-11] MEDS: Cyclobenzaprine HCl 10 MG TABLET PO (21:20)
[2025-03-11] MEDS: guaiFENesin LA 600 MG TAB.ER.12H PO (21:20)
[2025-03-11] MEDS: cloNIDine HCL 0.1 MG TABLET PO (21:20)
[2025-03-12 08:10] LABS: Estimated Average Glucose 134 mg/dL; Hemoglobin A1C 189.3023 umol/L; Hemoglobin A1c % 6.3 % (<6.0); Total Hemoglobin (HGBA1C) 4170.0638 umol/L
[2025-03-12 08:18] LABS: Cholesterol 174 mg/dL (<200); HDL Cholesterol 42 mg/dL (>40); LDL Cholesterol Calculated 104 mg/dL (<100); Triglycerides 141 mg/dL (<150)
[2025-03-12 08:20] VITALS: BP 156/85; PULSE 98; RESP 16; TEMP 36.4; O2SAT 92
[2025-03-12] MEDS: Losartan Potassium 25 MG TABLET PO (08:26)
[2025-03-12] MEDS: Venlafaxine HCl ER 150 MG CAP.ER.24H 300 MG PO (08:26)
[2025-03-12] MEDS: Atorvastatin Calcium 80 MG TABLET PO (08:26)
[2025-03-12] MEDS: guaiFENesin LA 600 MG TAB.ER.12H PO (08:26)
[2025-03-12] MEDS: Topiramate 25 MG TABLET PO (08:26)
[2025-03-12] MEDS: cloNIDine HCL 0.1 MG TABLET PO ×2 (08:26→14:56)
[2025-03-12] MEDS: lamoTRIgine 100 MG TABLET 200 MG PO (08:26)
[2025-03-12] MEDS: hydrOXYzine HCL 50 MG TABLET PO (08:26)
[2025-03-12] MEDS: Multivitamin TABLET 1 TAB PO (08:26)
[2025-03-12] MEDS: Gabapentin 300 MG CAPSULE PO ×2 (08:26→13:24)
[2025-03-12] MEDS: clonazePAM 0.5 MG TABLET PO (08:32)
[2025-03-12 08:35] LABS: Free T4 (Free Thyroxine) 0.81 ng/dL (0.71-1.85); Thyroid Stimulating Hormone 1.77 uIU/mL (0.32-4.0)
[2025-03-12 08:48] LABS: Vitamin B12 377 pg/mL (200-900)
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
[2025-03-12] MEDS: NaPROXEN 500 MG TABLET PO (13:26)
[2025-03-12] MEDS: Cyclobenzaprine HCl 10 MG TABLET PO (13:26)
[2025-03-12 14:44] VITALS: BP 107/58; PULSE 102
[2025-03-12] MEDS: SUMAtriptan succinate 100 MG TABLET PO (14:56)
== END 2025-03-12 15:28 | disposition home or self-care (01) | DRG 885 ==
PROVIDERS: Admitting Provider Psychiatry & Neurology Psychiatry; Visit Provider Psychiatry & Neurology Psychiatry
DX: F33.1 Major depressive disorder, recurrent, moderate (principal); S06.9XAS Unspecified intracranial injury with loss of consciousness status unknown, sequela; X58.XXXS Exposure to other specified factors, sequela; F06.30 Mood disorder due to known physiological condition, unspecified; Z79.899 Other long term (current) drug therapy
CPT/HCPCS: 36415; 80053; 80061; 82607; 82746; 83036; 84439; 84443

== ENCOUNTER → 2025-03-11 12:16 | Outpatient (BNV) | payer MEDICARE, SELFPAY | PROVIDERS: Admitting Provider Psychiatry & Neurology Psychiatry; Visit Provider Social Worker | DX: F33.1 Major depressive disorder, recurrent, moderate (principal); F06.30 Mood disorder due to known physiological condition, unspecified; S06.9XAS Unspecified intracranial injury with loss of consciousness status unknown, sequela | CPT/HCPCS: 90792 ==